=== PATIENT | female | born 1940 | race Caucasian/White ===

== ENCOUNTER 2021-09-15 13:26 | Emergency (ER) | payer MEDICARE, BC, SELFPAY ==
[2021-09-15 13:37] VITALS: BP 127/63; PULSE 111; RESP 18; TEMP 36.6; O2SAT 96; BMI 31.0
== END 2021-09-15 16:53 | disposition left against medical advice (07) ==
PROVIDERS: Emergency Provider Emergency Medicine; PCP Internal Medicine
DX: H57.11 Ocular pain, right eye (principal)
CPT/HCPCS: 99281; 99282

== ENCOUNTER 2021-09-16 10:25 | Emergency (ER) | payer MEDICARE, BC, SELFPAY ==
[2021-09-16 10:33] VITALS: BP 141/82; PULSE 105; RESP 18; TEMP 36.6; O2SAT 94; BMI 32.2
--- NOTE | 2021-09-16 10:43 | PC.NURSE ---
Pt received: Pt Aox4 and c/o R eye pain with bloody drainage since last night. Pt states she is on coumadin. R eye noted to be red with tenderness.
--- NOTE | 2021-09-16 10:49 | ED.EYEPROB ---
HPI - Eye Problem General Chief complaint: Eye Problems Stated complaint: R eye pain Time Seen by Provider: 09/16/21 10:42 Source: patient Mode of arrival: ambulatory Limitations: no limitations History of Present Illness chief complaint: eye pain, eye redness and other (bloody tears) Onset (ago): day(s) (1) Onset description: sudden Duration: constant Location: right eye Eye Symptoms: redness and pain Place: home Mechanism: none Severity: mild If Pain, Quality: aching Context: other (states happened when she was using her IPad no trauma) Associated symptoms: other (had some bloody tears) Treatments Prior to Arrival: other (seen at ) Related Data Home Medications Medication Instructions Recorded Confirmed amiodarone 200 mg tablet 200 mg PO BID 09/16/21 bupropion HCl 150 mg tablet,12 hr 150 mg PO DAILY 09/16/21 sustained-release calcitriol 0.25 mcg capsule 0 mcg PO 09/16/21 fluticasone propionate 50 1 spray INTRANASAL DAILY 09/16/21 mcg/actuation nasal spray,suspension isosorbide mononitrate 30 mg 30 mg PO DAILY 09/16/21 tablet,extended release 24 hr isosorbide mononitrate 60 mg 60 mg PO DAILY 09/16/21 tablet,extended release 24 hr metoprolol succinate 100 mg 100 mg PO BID 09/16/21 tablet,extended release 24 hr metoprolol succinate 50 mg 50 mg PO BID 09/16/21 tablet,extended release 24 hr metoprolol tartrate 50 mg tablet 150 mg PO BID 09/16/21 nitroglycerin 0.4 mg sublingual 0 mg SUBLINGUAL 09/16/21 tablet oxybutynin chloride 15 mg 15 mg PO DAILY 09/16/21 tablet,extended release 24 hr pravastatin 80 mg tablet 80 mg PO DAILY 09/16/21 torsemide 20 mg tablet 20 mg PO DAILY 09/16/21 warfarin 5 mg tablet 5 mg PO DAILY 09/16/21 Allergies Allergy/AdvReac Type Severity Reaction Status Date / Time Iodinated Contrast Media AdvReac Hives Verified 09/16/21 10:33 itraconazole [From Sporanox] AdvReac hives Verified 09/16/21 10:33 metronidazole [From Flagyl] AdvReac Hives Verified 09/16/21 10:33 sulfamethoxazole AdvReac Hives Verified 09/16/21 10:33 [From ] trimethoprim [From ] AdvReac Hives Verified 09/16/21 10:33 Review of Systems Review of Systems: Constitutional : No Fever, No Chills, No Fatigue, No Malaise ENT/Mouth : No sore throat, No Rhinorrhea Eyes: pos Eye Pain, No Swelling, pos Redness Cardiovascular : No Chest Pain, No SOB, No Dyspnea on Exertion, No Orthopnea, No Edema, No Palpitations Respiratory : No Cough, No Sputum, No Wheezing Gastrointestinal : No Nausea, No Vomiting, No Diarrhea Genitourinary : No Dysuria, No Urinary Frequency, No Hematuria, Musculoskeletal : No joint pain, No Myalgias, No Joint Swelling Skin : No Skin Lesions, No rash Neuro : No Weakness, No Numbness, No Dizziness, No Headache All other systems reviewed and are negative [facility] Past Medical History Medical History (Updated 09/16/21 @ 11:17 by Lizeth Morales DO) Afib Depression Hiatal hernia High cholesterol HTN (hypertension) Social History Social History Advance Directives: No Advance Directives Information Provided: Yes Physical Exam Vital Signs: Vital Signs: Last Vital Signs Temp 97.8 F 09/16/21 10:33 Pulse 105 H 09/16/21 10:33 Resp 18 09/16/21 10:33 BP 141/82 H 09/16/21 10:33 Pulse Ox 94 09/16/21 10:33 BMI result Body Mass Index 32.2 Appearance: Alert. Oriented X3. No acute distress. Eyes: Pupils equal, round and reactive to light. R eye sclera + subconj hemorrhage mostly layering inferiorly, no hyphema, full EOMi no pain, normal periorbital area - lacrimal duct appears patent and normal no blood in nares ENT: Pharynx normal. Neck: Normal inspection. Neck supple. CVS: Normal heart rate and rhythm. Pulses normal. Respiratory: No respiratory distress. Breath sounds normal. Abdomen: Soft and nontender. Skin: Skin warm and dry. Normal skin color. Normal skin turgor. Extremities: No lower extremity edema. No calf ttp Neuro: Oriented X 3. No motor deficit. No sensory deficit. Course Course Course Narrative: 20/20 vision both eyes IOP 12, 12, 11 labs stable can be DC at this time MDM - Eye Problem MDM Narrative Medical decision making narrative: 81 yo female no vision changes no headache here with R subconj hemorrhage on coumadin for afib - I see no other bleeding near the lacrimal duct or in nose at this time will obtain visual acuity, IOP, tell her to hold her ASA, she has no vision changes and no headache to suggest ICH or other bleeding - anticipate DC home with expectant management. Lab Data Result diagrams: 09/16/21 11:26 Labs: Lab Results 09/16/21 09/16/21 Range/Units 11:26 11:26 WBC 4.0 L (4.8-10.8) X10*3/uL RBC 3.88 L (4.20-5.50) X10*6/uL Hgb 10.9 L (12.0-16.0) g/dl Hct 36.3 L (37.0-47.0) % MCV 93.6 (80.0-98.0) fL MCH 28.1 (27.0-33.0) pg MCHC 30.0 L (31.0-35.0) g/dl RDW 17.9 H (11.0-16.0) % Plt Count 122 L (160-400) X10*3/uL MPV 11.8 (9.4-12.3) fL Absolute Nucleated RBC 0.000 (0.0-0.012) X10*3/uL Nucleated RBC % (auto) 0.0 (0.0-0.2) /100WBC PT 24.3 H (9.9-13.0) SEC INR 2.1 H (0.9-1.1) Discharge Plan Discharge Clinical Impression: Subconjunctival hemorrhage Qualifiers: Laterality: right Qualified Code(s): H11.31 - Conjunctival hemorrhage, right eye Patient Disposition: Home, Self-Care Instructions: Subconjunctival Hemorrhage (ED) Additional Instructions: return to ED for any worsening symptoms or concerns INR 2.1 eye will heal - this blood will absorb hold aspirin for 3 days Prescriptions: No Action torsemide 20 mg tablet 20 mg PO DAILY RF: 0 amiodarone 200 mg tablet 200 mg PO BID RF: 0 fluticasone propionate 50 mcg/actuation spray,suspension 1 spray intranasal DAILY RF: 0 bupropion HCl 150 mg tablet sustained-release 12 hr 150 mg PO DAILY RF: 0 oxybutynin chloride 15 mg tablet extended release 24hr 15 mg PO DAILY RF: 0 metoprolol tartrate 50 mg tablet 150 mg PO BID RF: 0 calcitriol 0.25 mcg capsule 0 mcg PO RF: 0 isosorbide mononitrate 60 mg tablet extended release 24 hr 60 mg PO DAILY RF: 0 metoprolol succinate 100 mg tablet extended release 24 hr 100 mg PO BID RF: 0 isosorbide mononitrate 30 mg tablet extended release 24 hr 30 mg PO DAILY RF: 0 warfarin 5 mg tablet 5 mg PO DAILY RF: 0 nitroglycerin 0.4 mg tablet, sublingual 0 mg sublingual RF: 0 metoprolol succinate 50 mg tablet extended release 24 hr 50 mg PO BID RF: 0 pravastatin 80 mg tablet 80 mg PO DAILY RF: 0 Referrals: Darell Cassidy [Physician] - 3 days
[2021-09-16] MEDS: Tetracaine HCl/PF 0.5% Oph Sol 4 ML DROPS 1 DROP EYE-RIGHT (10:55)
[2021-09-16 11:32] LABS: Hematocrit 36.3 % (37.0-47.0); Hemoglobin 10.9 g/dl (12.0-16.0); Mean Corpuscular Hemoglobin 28.1 pg (27.0-33.0); Mean Corpuscular Volume 93.6 fL (80.0-98.0); Mean Platelet Volume 11.8 fL (9.4-12.3); Platelet Count 122 X10*3/uL (160-400); Red Blood Count 3.88 X10*6/uL (4.20-5.50); Red Cell Distribution Width 17.9 % (11.0-16.0)
[2021-09-16 11:36] LABS: INTERNATIONAL NORM RATIO 2.1 (0.9-1.1); Prothrombin Time 24.3 SEC (9.9-13.0)
== END 2021-09-16 12:01 | disposition home or self-care (01) ==
PROVIDERS: Emergency Provider Emergency Medicine; PCP Internal Medicine
DX: H11.31 Conjunctival hemorrhage, right eye (principal); H57.11 Ocular pain, right eye; I48.91 Unspecified atrial fibrillation; I10 Essential (primary) hypertension; E78.5 Hyperlipidemia, unspecified; Z79.01 Long term (current) use of anticoagulants; Z79.02 Long term (current) use of antithrombotics/antiplatelets; Z79.899 Other long term (current) drug therapy
CPT/HCPCS: 36415; 85027; 85610; 99283

== ENCOUNTER → 2022-07-24 14:03 | Outpatient (BNVA) | payer MEDICARE, BC, SELFPAY | PROVIDERS: PCP Internal Medicine; Visit Provider Anesthesiology | DX: M47.816 Spondylosis without myelopathy or radiculopathy, lumbar region (principal); S32.030A Wedge compression fracture of third lumbar vertebra, initial encounter for closed fracture; M81.0 Age-related osteoporosis without current pathological fracture; N28.89 Other specified disorders of kidney and ureter | CPT/HCPCS: 99202 ==

== ENCOUNTER 2023-05-08 11:55 | Inpatient (IN) | payer MEDICARE, BC, SELFPAY ==
[2023-05-08] VITALS (7 sets, daily range): BP systolic 141–190; BP diastolic 83–93; PULSE 67–87; RESP 16–18; TEMP 36.6–37.8; O2SAT 87–94; BMI 25.4
--- NOTE | ~2023-05-08 | XR_ITS ---
EXAMINATION: XR RIBS, RIGHT, PA CHEST CLINICAL INFORMATION: Rib pain. COMPARISON: None available. TECHNIQUE: 3 views of the right ribs were obtained along with a PA view of the chest. A skin marker was placed over the right mid ribs. FINDINGS: Lungs are clear. No consolidation, pneumothorax, or pleural effusion. The cardiomediastinal silhouette and pulmonary vasculature are normal. Osseous structures are unremarkable. Ribs are intact. Deformity is seen in the posterolateral right sixth, eighth and ninth ribs. No fractures are identified. XR/XR ribs RT min 3V w CXR1V IMPRESSION: 1. No acute cardiopulmonary process. 2. Deformity in the posterolateral right sixth, eighth and ninth ribs is of indeterminate age. Overall appearance is not acute, but given this correlates with the patient's region of pain, acute fractures cannot be excluded.
--- NOTE | ~2023-05-08 | CT_ITS ---
EXAMINATION: CT CHEST, ABDOMEN AND PELVIS WITHOUT CONTRAST. CLINICAL INFORMATION: Right-sided rib pain, right-sided abdominal pain. Fall. COMPARISON: No pertinent prior studies are available for comparison. TECHNIQUE: Multidetector volumetric imaging was performed from the thoracic inlet through the pubic symphysis without IV contrast. Sagittal and coronal reformatted images were obtained on the technologist's workstation. This CT examination was performed using dose optimization techniques as appropriate, variously including the following: *Automated exposure control *Adjustment of mA and/or kV according to patient size (this includes techniques or standardized protocols for targeted exams where dose is matched to indication/reason for exam; i.e. extremities or head) *Use of iterative reconstruction technique DLP: 642 mGy-cm FINDINGS: Limited noncontrast examination. CHEST: Lung: Multifocal solid and groundglass nodular-like opacities, for example (series 7): A 1.3 x 0.7 cm mixed solid and groundglass opacity in the right apex (image 114). A 1.4 x 0.7 cm irregular predominantly solid opacity in the right upper lobe (image 161). A solid 0.7 cm nodule in the inferior right upper lobe (image 251). A 1.1 x 0.7 cm irregular predominantly solid opacity in the left apex (image 106). An irregular predominantly solid 1.1 x 0.6 cm opacity in the left upper lobe (image 268). Background of bronchial wall thickening, smooth interlobular septal thickening and scattered intrabronchial mucous secretions. Bibasilar subsegmental atelectases. Central airways are patent. Mediastinum: Cardiomegaly. Extensive coronary artery calcifications. No pathologically enlarged mediastinal lymph nodes. Evaluation of the hilar structures is limited in the absence of IV contrast. Heterogeneous enlarged right lobe of the thyroid with a dominant 2 cm nodule. Ascending thoracic aorta measures 4.5 cm in diameter. Large hiatal hernia. Pericardium/Pleura: No pleural effusion or pneumothorax. Trace amount of pericardial fluid. Chest Wall/Axilla: No pathologically enlarged lymph nodes. Osseous structures: Mildly displaced right-sided posterolateral sixth through eighth rib fractures. ABDOMEN/PELVIS: Peritoneal Space: No free air or free fluid. Liver, Gallbladder, Biliary Tree: Noncontrast liver is normal in size, shape and attenuation. There is a 1.7 cm simple fluid attenuating cyst in the lateral left hepatic lobe (12:301). Hydropic gallbladder with a single layering stone measuring 1 cm. No significant pericholecystic fat stranding/free fluid. No biliary ductal dilatation. Pancreas: Limited noncontrast examination. No significant peripancreatic fat stranding or free fluid. No main duct dilatation. Spleen: Normal size. Adrenal Glands: No adrenal mass. Kidneys and Ureters: Mild right pelviectasis within an extrarenal pelvis proximal to a segment of nonspecific high attenuation of the proximal ureter of approximately 2 segments in length (coronal image 35 series 15). Bilateral homogeneous, well-defined simple fluid attenuating cortical cysts, largest from the lower right kidney measuring 4.2 cm, for which no imaging follow-up is recommended. Bladder: Unremarkable. Gastrointestinal Tract: Large hiatal hernia with intrathoracic stomach and organoaxial volvulus. The small bowel is nondilated. Appendix is not definitely visualized, however there are no indirect inflammatory changes to suspect acute appendicitis. Colonic diverticulosis without significant pericolonic fat stranding/free fluid. Large amount of stool throughout the colon. Abdominal Wall: Fat-containing umbilical hernia. Small left greater than right fat-containing inguinal hernias. Anterior abdominal muscle rectus diastases. Lymphovascular Structures: No pathologically enlarged lymph nodes. Extensive atherosclerotic disease. Normal caliber of the abdominal aorta. Pelvic Viscera: Hysterectomy. No free fluid. Osseous Structures: Age indeterminate severe compression deformity at L3 and L5 with associated vertebroplasty cement. Mild age indeterminate compression deformity at L2 with associated vertebroplasty cement. Moderate to severe degenerative changes of the spine. CT/CT abdomen pelvis wo IV con IMPRESSION: Limited noncontrast examination. 1. Mildly displaced right-sided posterolateral sixth through eighth rib fractures. 2. Age indeterminate compression deformities at L2, L3 and L5 with associated vertebroplasty cement. 3. Multifocal nodular-like opacities in both lungs, nonspecific these could be infectious/inflammatory in nature, although malignancy cannot be excluded. Recommend a short-term follow-up chest CT in 3 months for reevaluation. 4. Background of bronchial wall thickening, smooth interlobular septal thickening and scattered intrabronchial mucous secretions, suggesting small airways disease as well as mild pulmonary edema. 5. Large hiatal hernia with intrathoracic stomach and organoaxial volvulus. 6. Equivocal 2 cm segment of high attenuation in proximal right ureter with mild upstream pelviectasis, recommend further evaluation with outpatient CT or MRI urogram to rule out urothelial lesion/stricture. 7. Cholelithiasis but no evidence of acute cholecystitis. 8. Severe colonic diverticulosis without significant pericolonic fat stranding/free fluid to suspected acute diverticulitis. Large amount of stool throughout the colon suggesting constipation. 9. Heterogeneous enlarged right lobe of the thyroid with a dominant 2 cm nodule. Recommend further evaluation with outpatient thyroid ultrasound. 10. Aneurysmatic dilatation of the ascending thoracic aorta measuring 4.5 cm in diameter. Recommend vascular special consultation for further management.
--- NOTE | ~2023-05-08 | CT_ITS ---
EXAMINATION: CT HEAD WITHOUT CONTRAST CT CERVICAL SPINE WITHOUT CONTRAST CLINICAL INFORMATION: Trauma. COMPARISON: None available. TECHNIQUE: Contiguous axial imaging was performed through the head and cervical spine without intravenous administration of contrast. Sagittal and coronal reformatted images also obtained. This CT examination was performed using dose optimization techniques as appropriate, variously including the following: *Automated exposure control *Adjustment of mA and/or kV according to patient size (this includes techniques or standardized protocols for targeted exams where dose is matched to indication/reason for exam; i.e. extremities or head) *Use of iterative reconstruction technique DLP: 822 mGy-cm FINDINGS: HEAD: The lateral, third and fourth ventricles are normally outlined. The cortical sulci and basal cisterns are normally outlined as well. There is mild bilateral periventricular and central white matter image attenuation. There is no acute territorial defect, hemorrhage or midline shift. The extra-axial spaces are unremarkable. Calvarium: Intact. Maxillofacial sinuses and mastoids: Clear as visualized. CERVICAL SPINE: The alignment is normal. There is moderate C5-C6 disc degenerative change and minimal disc degenerative changes throughout the remaining cervical spine with loss of disc space, endplate change and minimal osteophyte formation associated with mild diffuse facet osteoarthritic hypertrophic change with minimal spinal canal and multilevel mild neural foraminal narrowing. There is no fracture. The soft tissues are unremarkable. CT/CT head/brain wo IV con IMPRESSION: No acute intracranial abnormality. Cervical disc degenerative change. No cervical spine fracture.
--- NOTE | ~2023-05-08 | XR_ITS ---
EXAMINATION: XR HAND, LEFT CLINICAL INFORMATION: First digit pain. COMPARISON: None available. TECHNIQUE: PA, lateral, and oblique views of the left hand. FINDINGS: There is generalized osteopenia. Mild first carpal metacarpal, triscaphe and radiocarpal degenerative joint changes are seen. Chronic appearing deformity in the distal radius is noted. The carpal bones are normally aligned. The soft tissues are unremarkable. XR/XR hand LT 2V IMPRESSION: 1. Generalized osteopenia and mild degenerative joint changes most consistent with osteoarthritis. No overt acute fracture. 2. Chronic appearing deformity in the distal radius does not appear acute and may be secondary to old healed fracture.
--- NOTE | ~2023-05-08 | XR_ITS ---
EXAMINATION: XR CHEST CLINICAL INFORMATION: Fever. COMPARISON: 05/08/2023 TECHNIQUE: Frontal view of the chest was obtained. FINDINGS: The lung volumes are low and the patient is mildly rotated. The cardiac mediastinal silhouette is stable. A large hiatal hernia is again seen. There is no discrete focal consolidation or evidence for significant pleural effusion. The bony structures are osteopenic. There is a posterior right sixth rib fracture. The remaining fractures seen on CT are not currently appreciated. The soft tissues are unremarkable. XR/XR chest 1V IMPRESSION: No current evidence for active cardiopulmonary disease. Large hiatal hernia. Right-sided sixth rib fracture
--- NOTE | ~2023-05-08 | XR_ITS ---
EXAMINATION: XR WRIST, RIGHT XR HAND, RIGHT CLINICAL INFORMATION: Status post fall with hand and wrist pain. COMPARISON: None available. TECHNIQUE: PA, lateral, and oblique views of the right wrist and PA, lateral, and oblique views of the right hand FINDINGS: Mild first carpal metacarpal, triscaphe and radiocarpal degenerative joint changes are seen. The carpal bones are normally aligned. The distal radius and ulna are intact. The soft tissues are unremarkable. XR/XR hand wrist RT IMPRESSION: Mild degenerative joint changes most consistent with osteoarthritis. No acute fracture.
--- NOTE | ~2023-05-08 | CT_ITS ---
EXAMINATION: CT HEAD WITHOUT CONTRAST CT CERVICAL SPINE WITHOUT CONTRAST CLINICAL INFORMATION: Trauma. COMPARISON: None available. TECHNIQUE: Contiguous axial imaging was performed through the head and cervical spine without intravenous administration of contrast. Sagittal and coronal reformatted images also obtained. This CT examination was performed using dose optimization techniques as appropriate, variously including the following: *Automated exposure control *Adjustment of mA and/or kV according to patient size (this includes techniques or standardized protocols for targeted exams where dose is matched to indication/reason for exam; i.e. extremities or head) *Use of iterative reconstruction technique DLP: 822 mGy-cm FINDINGS: HEAD: The lateral, third and fourth ventricles are normally outlined. The cortical sulci and basal cisterns are normally outlined as well. There is mild bilateral periventricular and central white matter image attenuation. There is no acute territorial defect, hemorrhage or midline shift. The extra-axial spaces are unremarkable. Calvarium: Intact. Maxillofacial sinuses and mastoids: Clear as visualized. CERVICAL SPINE: The alignment is normal. There is moderate C5-C6 disc degenerative change and minimal disc degenerative changes throughout the remaining cervical spine with loss of disc space, endplate change and minimal osteophyte formation associated with mild diffuse facet osteoarthritic hypertrophic change with minimal spinal canal and multilevel mild neural foraminal narrowing. There is no fracture. The soft tissues are unremarkable. CT/CT cervical spine wo IV con IMPRESSION: No acute intracranial abnormality. Cervical disc degenerative change. No cervical spine fracture.
--- NOTE | 2023-05-08 12:03 | ED.FALL ---
HPI - Fall General Chief Complaint: Fall Stated Complaint: ? R Hip Fx S/P Fall 05/07/23 Time Seen by Provider: 05/08/23 13:54 Source: patient Mode of arrival: ambulatory Limitations: no limitations History of Present Illness HPI Narrative: This is an 83-year-old female past medical history significant for osteoporosis, AFib anticoagulated on Coumadin, hyperlipidemia, hypertension presenting to the emergency department complaints of right-sided wrist pain, left thumb pain status post fall yesterday while trying to plug in a recliner, patient reports that she fell, landed on her right side, and her herself. She reports the reason she fell is due to loss of balance, no preceding symptoms to fall. When she fell it is unclear if she hit her head or lost consciousness. Patient reports that she has been having difficulty ambulating secondary to pain. Patient denies chest pain, shortness of breath, nausea, vomiting, abdominal pain, headache, vision canges Related Data Home Medications Medication Instructions Recorded Confirmed amiodarone 200 mg tablet 200 mg PO BID 09/16/21 bupropion HCl 150 mg tablet,12 hr 150 mg PO DAILY 09/16/21 07/24/22 sustained-release calcitriol 0.25 mcg capsule 0 mcg PO 09/16/21 07/24/22 fluticasone propionate 50 1 spray intranasal DAILY 09/16/21 07/24/22 mcg/actuation nasal spray,suspension isosorbide mononitrate 30 mg 30 mg PO DAILY 09/16/21 07/24/22 tablet,extended release 24 hr isosorbide mononitrate 60 mg 60 mg PO DAILY 09/16/21 tablet,extended release 24 hr nitroglycerin 0.4 mg sublingual 0 mg sublingual 09/16/21 07/24/22 tablet oxybutynin chloride 15 mg 15 mg PO DAILY 09/16/21 07/24/22 tablet,extended release 24 hr pravastatin 80 mg tablet 80 mg PO DAILY 09/16/21 07/24/22 torsemide 20 mg tablet 20 mg PO DAILY 09/16/21 07/24/22 warfarin 5 mg tablet 5 mg PO DAILY 09/16/21 albuterol sulfate 90 mcg/actuation 0 mcg inhalation 07/24/22 07/24/22 aerosol inhaler aspirin 81 mg tablet,delayed 81 mg PO DAILY 07/24/22 07/24/22 release (Adult Aspirin Regimen) hydroxyzine HCl 25 mg tablet 25 mg PO TID 07/24/22 07/24/22 mecobalamin (vitamin B12) 5,000 mcg PO 07/24/22 07/24/22 mcg disintegrating tablet melatonin 10 mg capsule 10 mg PO BEDTIME PRN 07/24/22 07/24/22 mirtazapine 45 mg tablet 45 mg PO BEDTIME 07/24/22 07/24/22 ropinirole 0.25 mg tablet mg PO 07/24/22 07/24/22 tramadol 50 mg tablet 50 mg PO Q6H PRN 07/24/22 07/24/22 buprenorphine 20 mcg/hour weekly 1 patch topical QWEEK 05/08/23 transdermal patch gabapentin 300 mg capsule 300 mg PO DAILY 05/08/23 metoprolol tartrate 25 mg tablet 25 mg PO DAILY 05/08/23 Allergies Allergy/AdvReac Type Severity Reaction Status Date / Time Iodinated Contrast Media AdvReac Hives Verified 05/08/23 12:01 itraconazole [From Sporanox] AdvReac hives Verified 05/08/23 12:01 metronidazole [From Flagyl] AdvReac Hives Verified 05/08/23 12:01 sulfamethoxazole AdvReac Hives Verified 05/08/23 12:01 [From Septra] trimethoprim [From Septra] AdvReac Hives Verified 05/08/23 12:01 Review of Systems Review of Systems: Constitutional : No Weight loss, No Fever, No Chills, No Fatigue, No Malaise ENT/Mouth : No sore throat, No Rhinorrhea Eyes: No Eye Pain, No Swelling, No Redness Cardiovascular : No Chest Pain, No SOB, No Dyspnea on Exertion, No Orthopnea, No Edema, No Palpitations Respiratory : No Cough, No Sputum, No Wheezing Gastrointestinal : No Nausea, No Vomiting, No Diarrhea, No Constipation, No abdominal Pain, No Hematochezia, No Melena Genitourinary : No Dysuria, No Urinary Frequency, No Hematuria, Musculoskeletal : + joint pain, No Myalgias, + Joint Swelling, + rib pain Skin : No Skin Lesions, No rash Neuro : No Weakness, No Numbness, No Dizziness, No Headache Psych : No Anxiety/Panic, No Depression All other systems reviewed and are negative Yes all other systems are reviewed and are negative PMFSH Past Medical History Attestation statement: The following information was validated with the patient. Source: old records reviewed and nursing notes reviewed Medical History (Updated 05/08/23 @ 16:06 by HERIBERTO Gardner) Afib Depression Hiatal hernia High cholesterol HTN (hypertension) Social History Social History Advance Directives: Yes Advance Directives Information Provided: Yes Advance Directives on File: No Physical Exam Vital Signs: Vital Signs: Last Vital Signs Temp 97.9 F 05/08/23 14:20 Pulse 74 05/08/23 14:20 Resp 18 05/08/23 14:28 BP 141/87 H 05/08/23 14:20 Pulse Ox 93 05/08/23 14:20 O2 Del Method Room Air 05/08/23 14:20 BMI result Body Mass Index 25.4 vss Appearance: Alert.? Oriented X3.? No acute distress.? Head: Normocephalic, atraumatic, no step-offs or deformities Eyes: Pupils equal, round and reactive to light.? ENT: Pharynx normal.? Neck: Normal inspection.? Neck supple.? CVS: Normal heart rate and rhythm.? Pulses normal.?+ right sided rib pain 5-9 no overlying skin changes. Respiratory: No respiratory distress.? Breath sounds normal.? Abdomen: Soft and nontender.? Skin: Skin warm and dry.? Normal skin color.? Normal skin turgor.? Extremities: No lower extremity edema.? No calf ttp. 5/5 strength to bilateral upper and lower extremities + pain with rom of Lt thumb and r. wrist however full ROM. 2+ radial pulses equal and b/l, no wrist drop, cap refil < 2 seconds. Back: No midline tenderness, no C-spine tenderness, full range of motion, no CVA tenderness bilaterally Neuro: Oriented X 3.? No motor deficit.? No sensory deficit. CN 2-12 intact Course Course Course Narrative: RME: 83yo F w/PMHx A.fib on Coumadin, HTN, HLD, c/o R rib, R wrist, and L thumb pain s/p fall yesterday while trying to plug in recliner. States lost balance, unknown head trauma, denies LOC. States has been ambulating last secondary to pain Head/C-spine CT and x-rays ordered Full HPI, ROS and PE to be performed by primary ED provider. -1334--XR showing possible fx of ribs 6 & 7-8 > labs, CT w/con ordered Reevaluation(s) Reevaluation #1: X-ray of hand with generalized osteopenia and mild degenerative joint changes most consistent with osteoarthritis. No for acute fracture. Chronic appearing deformity in the distal radius does not appear acute. No fractures or dislocations in the right hand wrist. Osteoarthritis noted. X-ray of ribs with no acute cardiopulmonary process. Deformity in the posterior lateral right 6th 8th and 9th ribs. It is of indeterminate age. CT scans ordered. Patient has a contrast allergy with hives, will wait and obtain patient's H&H, if stable will do CT without contrast since it has been a day since fall, is unstable will premedicate and then do CT with IV contrast. Time: 14:06 Reevaluation #2: Sighn out to [place] pending scans and reeval. Dispo pending. Time: 16:06 Medications Administered Discontinued Medications Generic Name Dose Route Start Last Admin Trade Name Sharee PRN Reason Stop Dose Admin Lidocaine 1 patch 05/08/23 14:09 05/08/23 14:28 Lidocaine 4 % Patch Adh..Patch TRANSDERMA 05/08/23 14:10 1 patch ONCE ONE Administration Protocol Morphine Sulfate 4 mg 05/08/23 14:09 05/08/23 14:28 Morphine Sulfate 4 Mg/Ml Cartridge IVPUSH 05/08/23 14:10 4 mg ONCE ONE Administration Protocol Medical Decision Making Medical Decision Making [facility] Narrative: 1404 83-year-old female presents status post fall yesterday with complaints of left thumb pain, right wrist pain, rib pain since yesterday Exam with tenderness to palpation to right lateral ribs 5 through 9 without relying skin changes. 5/5 strength to bilateral upper and lower extremities + pain with rom of Lt thumb and r. wrist however full ROM. 2+ radial pulses equal and b/l, no wrist drop, cap refil < 2 seconds. Neuro nonfocal. Cerebellar intact. Will rule out traumatic injury to head, neck, chest, abdomen pelvis secondary to patient being on anti coags. Concerns for rib fractures, possible finger fracture and wrist fracture. Unlikely neurovascular compromise, threat to [place]. No evidence of stroke, posterior stroke or intracranial hemorrhage on my examination however will rule out. Also rule out ACS although based off history and physical exam low suspicion. Unlikely that this is a PE. As patient is anticoagulated. Plan labs, imaging, urine, EKG Differential Diagnosis Differential Diagnoses: The differential diagnosis associated with the presentation includes Will rule out traumatic injury to head, neck, chest, abdomen pelvis secondary to patient being on anti coags. Concerns for rib fractures, possible finger fracture and wrist fracture. Unlikely neurovascular compromise, threat to [place]. No evidence of stroke, posterior stroke or intracranial hemorrhage on my examination however will rule out. Also rule out ACS although based off history and physical exam low suspicion. Unlikely that this is a PE. As patient is anticoagulated. Admission/Observation Consideration of admission/observation: Escalation of care including admission/observation considered Likely Lab Data MDM Lab Attestation statement: I reviewed the patient's lab results. 05/08/23 14:18 05/08/23 14:18 Labs: Lab Results 05/08/23 05/08/23 05/08/23 Range/Units 14:18 14:18 14:18 WBC 4.2 L (4.8-10.8) X10*3/uL RBC 3.92 L (4.20-5.50) X10*6/uL Hgb 11.0 L (12.0-16.0) g/dl Hct 35.0 L (37.0-47.0) % MCV 89.3 (80.0-98.0) fL MCH 28.1 (27.0-33.0) pg MCHC 31.4 (31.0-35.0) g/dl RDW 15.5 (11.0-16.0) % Plt Count 141 L (160-400) X10*3/uL MPV 12.0 (9.4-12.3) fL Immature Gran % (Auto) 1.0 H (0.0-0.4) % Neut % (Auto) 44.0 L (45-73) % Lymph % (Auto) 17.1 L (20-40) % Morton % (Auto) 36.9 H (2-11) % Eos % (Auto) 0.5 (0-4) % Baso % (Auto) 0.5 (0-2) % Lymph # (Auto) 0.7 L (1.2-4.9) X10*3/uL Morton # (Auto) 1.6 H (0.1-1.2) X10*3/uL Eos # (Auto) 0.0 (0.0-0.4) X10*3/uL Baso # (Auto) 0.0 (0.0-0.2) X10*3/uL Abs Immat Gran (auto) 0.04 H (0.00-0.03) X10*3/uL Absolute Neuts (auto) 1.9 L (2.0-8.3) x10*3/uL Absolute Nucleated RBC 0.000 (0.0-0.012) X10*3/uL Nucleated RBC % (auto) 0.0 (0.0-0.2) /100WBC Smear Tech's Comments VERIFIED PT 35.4 H (11.1-13.3) SEC INR 2.9 H (0.9-1.1) Sodium 142 (135-145) mmol/L Potassium 3.8 (3.3-5.1) mmol/L Chloride 103 (96-108) mmol/L Carbon Dioxide 30 H (22-29) mmol/L Anion Gap 13 (12-20) BUN 17 H (9-16) mg/dL Creatinine 1.11 (0.5-1.4) mg/dL Estim Creat Clear Calc 41.5 Estimated GFR 47 Random Glucose 93 (60-115) mg/dL Calcium 10.0 (8.4-10.2) mg/dL Troponin I High Sens (<3.5-17.0) ng/L 05/08/23 Range/Units 14:42 WBC (4.8-10.8) X10*3/uL RBC (4.20-5.50) X10*6/uL Hgb (12.0-16.0) g/dl Hct (37.0-47.0) % MCV (80.0-98.0) fL MCH (27.0-33.0) pg MCHC (31.0-35.0) g/dl RDW (11.0-16.0) % Plt Count (160-400) X10*3/uL MPV (9.4-12.3) fL Immature Gran % (Auto) (0.0-0.4) % Neut % (Auto) (45-73) % Lymph % (Auto) (20-40) % Morton % (Auto) (2-11) % Eos % (Auto) (0-4) % Baso % (Auto) (0-2) % Lymph # (Auto) (1.2-4.9) X10*3/uL Morton # (Auto) (0.1-1.2) X10*3/uL Eos # (Auto) (0.0-0.4) X10*3/uL Baso # (Auto) (0.0-0.2) X10*3/uL Abs Immat Gran (auto) (0.00-0.03) X10*3/uL Absolute Neuts (auto) (2.0-8.3) x10*3/uL Absolute Nucleated RBC (0.0-0.012) X10*3/uL Nucleated RBC % (auto) (0.0-0.2) /100WBC Smear Tech's Comments PT (11.1-13.3) SEC INR (0.9-1.1) Sodium (135-145) mmol/L Potassium (3.3-5.1) mmol/L Chloride (96-108) mmol/L Carbon Dioxide (22-29) mmol/L Anion Gap (12-20) BUN (9-16) mg/dL Creatinine (0.5-1.4) mg/dL Estim Creat Clear Calc Estimated GFR Random Glucose (60-115) mg/dL Calcium (8.4-10.2) mg/dL Troponin I High Sens 9.0 (<3.5-17.0) ng/L Independent Interpretation I performed an independent interpretation of an: Plain X-Ray and CT Scan Radiology Impression Discussion of test interpretation with radiology: I have reviewed the radiologist's reading. Core Measures AMI core measures followed: Yes Measure exclusions: not indicated Critical Care Time Critical Care Time Critical Care Time: No Discharge Plan Discharge Clinical Impression: Fracture, ribs, Fall Patient Disposition: Still a Patient Prescriptions: No Action gabapentin 300 mg capsule 300 mg PO DAILY metoprolol tartrate 25 mg tablet 25 mg PO DAILY buprenorphine 20 mcg/hour patch weekly 1 patch topical QWEEK torsemide 20 mg tablet 20 mg PO DAILY amiodarone 200 mg tablet 200 mg PO BID fluticasone propionate 50 mcg/actuation spray,suspension 1 spray intranasal DAILY bupropion HCl 150 mg tablet sustained-release 12 hr 150 mg PO DAILY oxybutynin chloride 15 mg tablet extended release 24hr 15 mg PO DAILY calcitriol 0.25 mcg capsule 0 mcg PO isosorbide mononitrate 60 mg tablet extended release 24 hr 60 mg PO DAILY isosorbide mononitrate 30 mg tablet extended release 24 hr 30 mg PO DAILY warfarin 5 mg tablet 5 mg PO DAILY nitroglycerin 0.4 mg tablet, sublingual 0 mg sublingual pravastatin 80 mg tablet 80 mg PO DAILY albuterol sulfate 90 mcg/actuation HFA aerosol inhaler 0 mcg inhalation aspirin [Adult Aspirin Regimen] 81 mg tablet,delayed release (DR/EC) 81 mg PO DAILY hydroxyzine HCl 25 mg tablet 25 mg PO TID melatonin 10 mg capsule 10 mg PO BEDTIME PRN mirtazapine 45 mg tablet 45 mg PO BEDTIME ropinirole 0.25 mg tablet PO tramadol 50 mg tablet 50 mg PO Q6H PRN mecobalamin (vitamin B12) 5,000 mcg tablet,disintegrating PO
--- NOTE | 2023-05-08 13:56 | ECG_ITS ---
Test Reason : fall Blood Pressure : / mmHG Vent. Rate : 068 BPM Atrial Rate : 068 BPM P-R Int : 164 ms QRS Dur : 088 ms QT Int : 438 ms P-R-T Axes : 068 009 062 degrees QTc Int : 465 ms Sinus rhythm with Premature atrial complexes Otherwise normal ECG No previous ECGs available Referred By: Delmi Pollard Electronically Signed By:LUCIANO WRIGHT
[2023-05-08] MEDS: Lidocaine 4 % Patch ADH..PATCH 1 PATCH TRANSDERMA (14:28)
[2023-05-08] MEDS: Morphine Sulfate 4 MG/ML CARTRIDGE IVPUSH (14:28)
[2023-05-08 14:30] LABS: INTERNATIONAL NORM RATIO 2.9 (0.9-1.1); Prothrombin Time 35.4 SEC (11.1-13.3)
[2023-05-08 14:31] LABS: Basophils Percent Auto 0.5 % (0-2); Eosinophils Percent Auto 0.5 % (0-4); Imm Gran Abs Auto 0.04 X10*3/uL (0.00-0.03); Lymphocytes Absolute Auto 0.7 X10*3/uL (1.2-4.9); Lymphocytes Percent Auto 17.1 % (20-40); MANUAL DIFF FLAG SCAN; Mean Corpuscular HGB Conc 31.4 g/dl (31.0-35.0); Mean Corpuscular Hemoglobin 28.1 pg (27.0-33.0); Mean Corpuscular Volume 89.3 fL (80.0-98.0); Monocytes Absolute Auto 1.6 X10*3/uL (0.1-1.2); Monocytes Percent Auto 36.9 % (2-11); Neutrophils Absolute Auto 1.9 x10*3/uL (2.0-8.3); Platelet Count 141 X10*3/uL (160-400); Red Blood Count 3.92 X10*6/uL (4.20-5.50); Red Cell Distribution Width 15.5 % (11.0-16.0); SCAN SMEAR FLAG 1; White Blood Count 4.2 X10*3/uL (4.8-10.8)
[2023-05-08 14:39] LABS: Anion Gap 13 (12-20); Blood Urea Nitrogen 17 mg/dL (9-16); Carbon Dioxide 30 mmol/L (22-29); Chloride 103 mmol/L (96-108); Creatinine Clr Calc Pharmacy 41.5; Estimated Glomerular Filt Rate 47; Glucose Random 93 mg/dL (60-115); Potassium 3.8 mmol/L (3.3-5.1); Sodium 142 mmol/L (135-145)
[2023-05-08 15:19] LABS: SLIDE REVIEW VERIFIED
--- NOTE | 2023-05-08 15:24 | PC.NURSE ---
Patient assisted to bathroom via wheelchair. Patient able to stand and pivot with minimal assistance. Patient states that the pain medication helped some. Patient assisted back to bed again able to stand and pivot with minimal assistance. Breathing even, no s/s of distress noted. Patient does guard right side when moving.
[2023-05-08 17:22] LABS: Troponin-I High Sensitivity 12.8 ng/L (<3.5-17.0)
--- NOTE | 2023-05-08 17:48 | MHC.EDTECH ---
THIS PCT JUST ASSUMED CARE OF PT ,VITALS SIGN TAKEN ,RN JONO IS AWARE OF PT LOW 02 SAT OF 87 % ON ROOM AIR ,PT WAS PUT ON 2 L 02 ,PATIENT IS NOW sating at 92 % on 2 l .
--- NOTE | 2023-05-08 19:30 | MHC.EDTECH ---
This tech assumed care of patient at 1900, Vitals were taken and blood pressure is elevated at 190/88,RN Jennifer was made aware. Patient is resting at this time and call porter within reach.
--- NOTE | 2023-05-08 19:45 | MHC.EDTECH ---
Patient had to use the bathroom and was not wanting to go on the commode, this tech got a wheelchair and assisted her to the bathroom, patient has a steady gait, pt did urinate. Patient requested something to eat this tech got her a peanut butter and jelly sandwich with some applesauce and two cups of applesauce.
--- NOTE | 2023-05-08 20:16 | PHA.MEDREC ---
Pharmacy Consult ? Medication Reconciliation Pharmacy has completed the medication reconciliation. Patient's had list of medications. Patient reports she takes a half tablet of warfarin every day. Patient has no idea what a buprenorphine patch it. reports patient has not started any patches. Leslie Pickard, PharmD
--- NOTE | 2023-05-08 20:21 | P.HPHOSP_ITS ---
Patient seen and examined at bedside. I agree with the findings of a PP. Patient admitted for intractable pain secondary to rib fractures For full H&P please see History of Present Illness Date of Service: 05/08/23 Attending physician on admission: Gin Adams Chief Complaint: fall, rib pain 83-year-old female with history of paroxysmal atrial fibrillation anticoagulated with Coumadin, depression, hyperlipidemia, osteoporosis, urge incontinence, and hypertension presented to the ED earlier today for evaluation of injury sustained during an accidental fall. She states she was getting up from her recliner and lost her balance falling to the right side. She does not believe she hit her head or lose consciousness. She denies any prodrome leading up to the fall including lightheadedness, shortness of breath, visual changes, palpitations, or chest pain. She does report difficulty ambulating since the fall. On arrival, patient hypertensive to 171/93, vitals otherwise stable. Did develop hypoxia to 87% placed on 2 L supplemental O2 maintaining 92% oximetry. Hematology studies consistent with baseline. INR 2.9, renal function normal, electrolyte levels normal. Head CT negative for any acute intracranial abnormality. CT of the cervical spine shows degenerative changes, but no acute fracture, dislocation, or subluxation. CT chest shows mildly displaced right- sided posterolateral 6th through 8th right rib fractures as well as age- indeterminate compression deformities at L2, L3, L5 with associated vertebroplasty cement. There are multifocal nodular like opacities bilateral lungs which are nonspecific, follow-up CT in 3 months recommended. There is mild bronchial wall thickening. Incidentally noted 4.5 cm dilatation of the ascending thoracic aorta. X-ray of the right hand/wrist shows mild degenerative joint changes consistent with osteoarthritis. X-ray of the left hand shows generalized osteopenia and arthritic changes but no overt acute fracture. There is also chronic appearing deformity of the distal radius possibly secondary to old healed fracture. In the ED, received lidocaine patch and IV morphine. Given she is still complaining of 9/10 pain with ongoing hypoxia, will observe for pain management with a possible placement to short-term rehab. Review of Systems Review of Systems: General: No fevers, malaise, unintentional weight loss HEENT: No blurred vision, diplopia. Cardiovascular: No chest pain, palpitations, or leg edema Respiratory: No wheezing, cough. +sob GI: No abdominal pain, nausea, vomiting, diarrhea, constipation, melena, hematochezia MSK: No myalgia, back pain. +rib pain Neuro: No headaches, weakness, paresthesias Skin: No rashes or lesions [facility] Medical History Afib Depression Hiatal hernia High cholesterol HTN (hypertension) Social History Advance Directives: Yes Advance Directives Information Provided: Yes Advance Directives on File: No Meds Allergies Allergy/AdvReac Type Severity Reaction Status Date / Time Iodinated Contrast Media AdvReac Hives Verified 05/08/23 12:01 itraconazole [From Sporanox] AdvReac hives Verified 05/08/23 12:01 metronidazole [From Flagyl] AdvReac Hives Verified 05/08/23 12:01 sulfamethoxazole AdvReac Hives Verified 05/08/23 12:01 [From Septra] trimethoprim [From Septra] AdvReac Hives Verified 05/08/23 12:01 Active Medications: Current Medications Acetaminophen (Acetaminophen 325 Mg Tablet) 650 mg PO Q6H PRN PRN Reason: Pain, Mild (Pain Scale 1-3) Docusate Sodium (Docusate Sodium 100 Mg Capsule) 100 mg PO DAILY PRN PRN Reason: Constipation Morphine Sulfate (Morphine Sulfate 2 Mg/Ml Cartridge) 2 mg IVPUSH Q4H PRN; Protocol PRN Reason: Pain, Severe (Pain Scale 7-10) Ondansetron HCl (Ondansetron Hcl 4 Mg/2 Ml Vial) 4 mg IVPUSH Q8H PRN PRN Reason: Nausea and Vomiting Oxycodone HCl (Oxycodone Hcl Immed Release 5 Mg Tablet) 5 mg PO Q4H PRN PRN Reason: Pain, Moderate(Pain Scale 4-6) Sodium Chloride (0.9 % Sodium Chloride Flush 3 Ml Syringe) 3 ml IVFSH [facility] Home Medications Medication Instructions Recorded Confirmed Last Taken Type bupropion HCl 150 mg tablet,12 hr 150 mg PO DAILY 09/16/21 05/08/23 05/08/23 History sustained-release calcitriol 0.25 mcg capsule 0.25 mcg PO Q48H 09/16/21 05/08/23 05/08/23 History fluticasone propionate 50 2 spray intranasal DAILY 09/16/21 05/08/23 05/08/23 History mcg/actuation nasal spray,suspension isosorbide mononitrate 60 mg 60 mg PO DAILY 09/16/21 05/08/23 05/08/23 History tablet,extended release 24 hr nitroglycerin 0.4 mg sublingual 0.4 mg sublingual Q5M PRN Chest 09/16/21 05/08/23 05/08/23 History tablet Pain oxybutynin chloride 15 mg 15 mg PO DAILY 09/16/21 05/08/23 05/08/23 History tablet,extended release 24 hr pravastatin 80 mg tablet 80 mg PO DAILY 09/16/21 05/08/23 05/08/23 History torsemide 20 mg tablet 20 mg PO Q48H 09/16/21 05/08/23 05/08/23 History warfarin 5 mg tablet 2.5 mg PO DAILY 09/16/21 05/08/23 Unknown History albuterol sulfate 90 mcg/actuation 2 puff inhalation Q4-6H PRN 07/24/22 05/08/23 Unknown History aerosol inhaler Wheezing aspirin 81 mg tablet,delayed 81 mg PO DAILY 07/24/22 05/08/23 05/08/23 History release (Adult Aspirin Regimen) melatonin 10 mg capsule 10 mg PO BEDTIME PRN Insomnia 07/24/22 05/08/23 Unknown History mirtazapine 45 mg tablet 45 mg PO BEDTIME 07/24/22 05/08/23 05/07/23 History ropinirole 0.25 mg tablet 0.25 mg PO BEDTIME 07/24/22 05/08/23 05/07/23 History cetirizine 10 mg tablet 10 mg PO DAILY 05/08/23 05/08/23 05/08/23 History cyanocobalamin (vitamin B-12) 1,000 mcg PO DAILY 05/08/23 05/08/23 05/08/23 History 1,000 mcg tablet gabapentin 300 mg capsule 300 mg PO BEDTIME 05/08/23 05/08/23 05/07/23 History glucosamine-chondroitin 1 tab PO BID 05/08/23 05/08/23 05/08/23 History metoprolol tartrate 25 mg tablet 12.5 mg PO BID 0805/08/23 05/08/23 History Physical Exam Vital Signs and Narrative: Vital Signs: Last Vital Signs Temp 99.4 F 05/08/23 19:28 Pulse 87 05/08/23 19:28 Resp 18 05/08/23 19:28 BP 190/88 H 05/08/23 19:28 Pulse Ox 92 05/08/23 19:28 O2 Del Method Nasal Cannula 05/08/23 19:28 O2 Flow Rate 2 05/08/23 19:28 BMI result Body Mass Index 25.4 Constitutional - Awake and Alert, No apparent distress Eyes - PERRLA, EOMI Cardiovascular - S1S2, RRR, No edema Respiratory - Normal lung expansion, Normal respiratory effort, No respiratory distress, scattered crackles bilaterally Gastrointestinal - NT / ND; +BS; No rebound or guarding - No CVA tenderness Extremities - no calf tenderness bilaterally, no swelling Musculoskeletal - Normal inspection, normal ROM Skin - Warm/Dry. Ecchymosis right side back Neurological - Alert & oriented x3, CN II-XII in tact, 5/5 strength BUE and BLE Results Labs 05/08/23 14:18 05/08/23 14:18 Labs: Laboratory Results - last 24 hr 05/08/23 05/08/23 05/08/23 14:18 14:18 14:18 MCV 89.3 MCH 28.1 MCHC 31.4 RDW 15.5 Plt Count 141 L MPV 12.0 Immature Gran % (Auto) 1.0 H Neut % (Auto) 44.0 L Lymph % (Auto) 17.1 L [place] % (Auto) 36.9 H Eos % (Auto) 0.5 Baso % (Auto) 0.5 Lymph # (Auto) 0.7 L [place] # (Auto) 1.6 H Eos # (Auto) 0.0 Baso # (Auto) 0.0 Abs Immat Gran (auto) 0.04 H Absolute Neuts (auto) 1.9 L Absolute Nucleated RBC 0.000 Nucleated RBC % (auto) 0.0 Smear Tech's Comments VERIFIED PT 35.4 H INR 2.9 H Anion Gap 13 Estim Creat Clear Calc 41.5 Estimated GFR 47 Random Glucose 93 Calcium 10.0 Imaging Radiologist's Impressions: Impressions Hand X-Ray 05/08/23 12:30 IMPRESSION: 1. Generalized osteopenia and mild degenerative joint changes most consistent with osteoarthritis. No overt acute fracture. 2. Chronic appearing deformity in the distal radius does not appear acute and may be secondary to old healed fracture. Hand/Wrist X-Ray 05/08/23 12:30 IMPRESSION: Mild degenerative joint changes most consistent with osteoarthritis. No acute fracture. Ribs X-Ray 05/08/23 12:30 IMPRESSION: 1. No acute cardiopulmonary process. 2. Deformity in the posterolateral right sixth, eighth and ninth ribs is of indeterminate age. Overall appearance is not acute, but given this correlates with the patient's region of pain, acute fractures cannot be excluded. Cervical Spine CT 05/08/23 13:39 IMPRESSION: No acute intracranial abnormality. Cervical disc degenerative change. No cervical spine fracture. Head CT 05/08/23 13:39 IMPRESSION: No acute intracranial abnormality. Cervical disc degenerative change. No cervical spine fracture. Abdomen/Pelvis CT 05/08/23 15:47 IMPRESSION: Limited noncontrast examination. 1. Mildly displaced right-sided posterolateral sixth through eighth rib fractures. 2. Age indeterminate compression deformities at L2, L3 and L5 with associated vertebroplasty cement. 3. Multifocal nodular-like opacities in both lungs, nonspecific these could be infectious/inflammatory in nature, although malignancy cannot be excluded. Recommend a short-term follow-up chest CT in 3 months for reevaluation. 4. Background of bronchial wall thickening, smooth interlobular septal thickening and scattered intrabronchial mucous secretions, suggesting small airways disease as well as mild pulmonary edema. 5. Large hiatal hernia with intrathoracic stomach and organoaxial volvulus. 6. Equivocal 2 cm segment of high attenuation in proximal right ureter with mild upstream pelviectasis, recommend further evaluation with outpatient CT or MRI urogram to rule out urothelial lesion/stricture. 7. Cholelithiasis but no evidence of acute cholecystitis. 8. Severe colonic diverticulosis without significant pericolonic fat stranding/free fluid to suspected acute diverticulitis. Large amount of stool throughout the colon suggesting constipation. 9. Heterogeneous enlarged right lobe of the thyroid with a dominant 2 cm nodule. Recommend further evaluation with outpatient thyroid ultrasound. 10. Aneurysmatic dilatation of the ascending thoracic aorta measuring 4.5 cm in diameter. Recommend vascular special consultation for further management. Chest CT 05/08/23 15:48 IMPRESSION: Limited noncontrast examination. 1. Mildly displaced right-sided posterolateral sixth through eighth rib fractures. 2. Age indeterminate compression deformities at L2, L3 and L5 with associated vertebroplasty cement. 3. Multifocal nodular-like opacities in both lungs, nonspecific these could be infectious/inflammatory in nature, although malignancy cannot be excluded. Recommend a short-term follow-up chest CT in 3 months for reevaluation. 4. Background of bronchial wall thickening, smooth interlobular septal thickening and scattered intrabronchial mucous secretions, suggesting small airways disease as well as mild pulmonary edema. 5. Large hiatal hernia with intrathoracic stomach and organoaxial volvulus. 6. Equivocal 2 cm segment of high attenuation in proximal right ureter with mild upstream pelviectasis, recommend further evaluation with outpatient CT or MRI urogram to rule out urothelial lesion/stricture. 7. Cholelithiasis but no evidence of acute cholecystitis. 8. Severe colonic diverticulosis without significant pericolonic fat stranding/free fluid to suspected acute diverticulitis. Large amount of stool throughout the colon suggesting constipation. 9. Heterogeneous enlarged right lobe of the thyroid with a dominant 2 cm nodule. Recommend further evaluation with outpatient thyroid ultrasound. 10. Aneurysmatic dilatation of the ascending thoracic aorta measuring 4.5 cm in diameter. Recommend vascular special consultation for further management. Assessment and Plan (1) Fracture, ribs: Status: Acute (2) Fall: Status: Acute Plan 83-year-old female with history of paroxysmal atrial fibrillation anticoagulated with Coumadin, depression, hyperlipidemia, osteoporosis, urge incontinence, and hypertension to be observed for intractable rib pain with hypoxia. #Acute hypoxic respiratory failure -due to decreased respiratory excursion 2/2 to pain from rib fractures -Continue supplemental O2 to maintain oximetry >92% -Encourage incentive spirometry #Acute right sided rib fractures -Pain management using pain scale -Mildly displaced, ortho consult -Incentive spirometry #Accidental mechanical fall -pt eval #HTN- uncontrolled 2/2 to pain -pain management -continue home meds #HLD -continue statin # paroxysmal atrial fibrillation -anticoagulation with Coumadin, monitor INR daily. INR currently therapeutic at 2.9 -continue metoprolol for rate control # urge incontinence -continue oxybutynin Icidentalomas #4.5cm ascending aortic dilatation-outpatient cardiovascular follow-up # 2 cm heterogenous thyroid nodule-outpatient follow-up for thyroid ultrasound # right-sided ureteral lesion with mild upstream pelviectasis-outpatient follow- up for CT or MRI urogram to rule out early the lesion/stricture DVT prophylaxis-on Coumadin Full code Time Spent With Patient Time: Total time managing care of this patient today ____ minutes. Quality Stroke Does the patient have a stroke diagnosis?: No VTE Prior VTE?: No VTE Risk Level:: Medical - moderate - high VTE Device Contraindication: Treatment Not Indicated VTE Drug Contraindication: N/A - Med Ordered
[2023-05-08] MEDS: Morphine Sulfate 2 MG/ML CARTRIDGE IVPUSH (20:27)
--- NOTE | 2023-05-08 21:14 | MHC.EDTECH ---
Hourly rounds completed and vitals were taken,temp is elevated at 100.0 orally and BP is 181/90 RN Jennifer made aware . Belongings list completed earlier took home tablet and clothes.
[2023-05-08] MEDS: Acetaminophen 325 MG TABLET 650 MG PO (21:20)
[2023-05-08] MEDS: oxyBUTYnin chloride ER 5 MG TAB.ER.24 15 MG PO (21:20)
[2023-05-08] MEDS: Metoprolol Tartrate 12.5 MG HALFTAB PO (21:21)
[2023-05-08] MEDS: Gabapentin 300 MG CAPSULE PO (21:21)
[2023-05-08] MEDS: Mirtazapine 15 MG TABLET 45 MG PO (21:22)
[2023-05-08] MEDS: oxyCODONE HCl Immed Release 5 MG TABLET PO (21:22)
[2023-05-09] VITALS: BP 168/78; PULSE 82; RESP 16; TEMP 37.1; O2SAT 93
[2023-05-09] MEDS: 0.9 % Sodium Chloride Flush 3 ML SYRINGE IVFLUSH ×2 (00:25→21:43)
[2023-05-09 05:45] LABS: Basophils Percent Auto 0.4 % (0-2); Eosinophils Percent Auto 0.8 % (0-4); Hematocrit 36.4 % (37.0-47.0); Hemoglobin 11.3 g/dl (12.0-16.0); Imm Gran Abs Auto 0.05 X10*3/uL (0.00-0.03); Lymphocytes Absolute Auto 0.7 X10*3/uL (1.2-4.9); Lymphocytes Percent Auto 14.2 % (20-40); Mean Corpuscular Hemoglobin 27.6 pg (27.0-33.0); Mean Platelet Volume 11.4 fL (9.4-12.3); Monocytes Absolute Auto 2.3 X10*3/uL (0.1-1.2); Monocytes Percent Auto 44.3 % (2-11); Neutrophils Absolute Auto 2.1 x10*3/uL (2.0-8.3); Neutrophils Percent Auto 39.3 % (45-73); PLT CLUMP 1; Red Blood Count 4.09 X10*6/uL (4.20-5.50); Red Cell Distribution Width 15.4 % (11.0-16.0); SCAN SMEAR FLAG 1
[2023-05-09 05:46] LABS: INTERNATIONAL NORM RATIO 2.4 (0.9-1.1); Prothrombin Time 29.8 SEC (11.1-13.3)
[2023-05-09 06:02] LABS: Anion Gap 15 (12-20); Blood Urea Nitrogen 14 mg/dL (9-16); Calcium 9.5 mg/dL (8.4-10.2); Carbon Dioxide 26 mmol/L (22-29); Chloride 103 mmol/L (96-108); Estimated Glomerular Filt Rate 54; Glucose Random 101 mg/dL (60-115); Potassium 4.1 mmol/L (3.3-5.1); Sodium 140 mmol/L (135-145)
[2023-05-09 06:20] LABS: Platelet Count 99 X10*3/uL (160-400); White Blood Count 5.2 X10*3/uL (4.8-10.8)
[2023-05-09 06:21] LABS: MANUAL DIFF FLAG SCAN
[2023-05-09 06:30] LABS: SLIDE REVIEW VERIFIED
[2023-05-09 07:43] VITALS: BP 168/78; PULSE 82; O2SAT 93
[2023-05-09 07:44] VITALS: BP 155/67; PULSE 69; RESP 16; O2SAT 92
[2023-05-09] MEDS: Metoprolol Tartrate 12.5 MG HALFTAB PO ×2 (08:53→21:42)
[2023-05-09] MEDS: Cyanocobalamin (Vitamin B-12) 1,000 MCG TABLET 1000 MCG PO (08:53)
[2023-05-09] MEDS: buPROPion HCl XL 150 MG TAB.ER.24H PO (08:53)
[2023-05-09] MEDS: Loratadine 10 MG TABLET PO (08:53)
[2023-05-09] MEDS: Aspirin Enteric Coated 81 MG TABLET.DR PO (08:53)
[2023-05-09] MEDS: Pravastatin Sodium 80 MG TABLET PO (09:08)
[2023-05-09] MEDS: Morphine Sulfate 2 MG/ML CARTRIDGE IVPUSH ×2 (09:08→14:25)
[2023-05-09] MEDS: Isosorbide Mononitrate 60 MG TAB.ER.24H PO (09:08)
[2023-05-09] MEDS: oxyCODONE HCl Immed Release 5 MG TABLET PO ×2 (12:43→18:01)
[2023-05-09 16:00] VITALS: BP 145/65; PULSE 80; RESP 20; TEMP 36.4; O2SAT 94
--- NOTE | 2023-05-09 17:14 | P.PNIM_ITS ---
Subjective Subjective Date of Service: 05/09/23 Interval History: Pain control adequate. Resting quietly in bed Review of Systems Denies chest pain Denies shortness of breath Denies nausea vomiting diarrhea Denies fever chills Admits to left-sided rib pain Physical Exam Vital Signs: Vital Signs: Last Vital Signs Temp 98.7 F 05/09/23 00:00 Pulse 69 05/09/23 07:44 Resp 16 05/09/23 07:44 BP 155/67 H 05/09/23 07:44 Pulse Ox 92 05/09/23 07:44 O2 Del Method Room Air 05/09/23 07:44 O2 Flow Rate 2 05/09/23 00:00 BMI result Body Mass Index 25.4 Const: Other: Comfortably lying in bed in no respiratory distress Resp: Other: Bibasilar and inspiratory crackles otherwise clear. No rales rhonchi or wheezes Cardio: Other: No S4; positive S1-S2; no S3 murmurs rubs or gallops GI: Other: Soft nontender nondistended with normoactive bowel sounds Neuro: Other: Cranial nerves 2-12 grossly intact as tested. Motor 5/5 all extremities sensation stacked Extrem: Other: No edema bilaterally Objective Data Active Medications Acetaminophen (Acetaminophen 325 Mg Tablet) 650 mg PO Q6H PRN PRN Reason: Pain, Mild (Pain Scale 1-3) Last Admin: 05/08/23 21:20 Dose: 650 mg Documented By: ALISSON Albuterol Sulfate (Albuterol Sulfate 90 Mcg 8 Gm Inhaler) 2 puff INHALE Q4H PRN PRN Reason: Wheezing Aspirin (Aspirin Enteric Coated 81 Mg Tablet.) 81 mg PO DAILY [facility] Last Admin: 05/09/23 08:53 Dose: 81 mg Documented By: CLIVE Bupropion HCl (Bupropion Hcl Xl 150 Mg Tab.Er.24h) 150 mg PO DAILY [facility] Last Admin: 05/09/23 08:53 Dose: 150 mg Documented By: CLIVE Calcitriol (Calcitriol 0.25 Mcg Capsule) 0.25 mcg PO Q48H [facility] Cyanocobalamin (Cyanocobalamin (Vitamin B-12) 1,000 Mcg Tablet) 1,000 mcg PO DAILY [facility] Last Admin: 05/09/23 08:53 Dose: 1,000 mcg Documented By: CLIVE Docusate Sodium (Docusate Sodium 100 Mg Capsule) 100 mg PO DAILY PRN PRN Reason: Constipation Fluticasone Propionate (Fluticasone Propionate Nasal 16 Gm [place]) 2 spray NOSTRIL-B DAILY [facility] Last Admin: 05/09/23 09:23 Dose: Not Given Documented By: CLIVE Non-Admin Reason: Patient Refused Gabapentin (Gabapentin 300 Mg Capsule) 300 mg PO BEDTIME [facility] Last Admin: 05/08/23 21:21 Dose: 300 mg Documented By: ALISSON Isosorbide Mononitrate (Isosorbide Mononitrate 60 Mg Tab.Er.24h) 60 mg PO DAILY [facility]; Protocol Last Admin: 05/09/23 09:08 Dose: 60 mg Documented By: CLIVE Loratadine (Loratadine 10 Mg Tablet) 10 mg PO DAILY [facility] Last Admin: 05/09/23 08:53 Dose: 10 mg Documented By: CLIVE Melatonin (Melatonin 3 Mg Tablet) 9 mg PO BEDTIME PRN PRN Reason: Insomnia Metoprolol Tartrate (Metoprolol Tartrate 12.5 Mg Halftab) 12.5 mg PO BID [facility]; Protocol Last Admin: 05/09/23 08:53 Dose: 12.5 mg Documented By: CLIVE Mirtazapine (Mirtazapine 15 Mg Tablet) 45 mg PO BEDTIME [facility] Last Admin: 05/08/23 21:22 Dose: 45 mg Documented By: ALISSON Morphine Sulfate (Morphine Sulfate 2 Mg/Ml Cartridge) 2 mg IVPUSH Q4H PRN; Protocol PRN Reason: Pain, Severe (Pain Scale 7-10) Last Admin: 05/09/23 14:25 Dose: 2 mg Documented By: ALEXUS Nitroglycerin (Nitroglycerin 0.4 Mg Tab.Subl) 0.4 mg SUBLINGUAL Q5M PRN PRN Reason: Chest Pain Ondansetron HCl (Ondansetron Hcl 4 Mg/2 Ml Vial) 4 mg IVPUSH Q8H PRN PRN Reason: Nausea and Vomiting Oxybutynin Chloride (Oxybutynin Chloride Er 5 Mg Tab.Er.24) 15 mg PO BEDTIME [facility] Last Admin: 05/08/23 21:20 Dose: 15 mg Documented By: ALISSON Oxycodone HCl (Oxycodone Hcl Immed Release 5 Mg Tablet) 5 mg PO Q4H PRN PRN Reason: Pain, Moderate(Pain Scale 4-6) Last Admin: 05/09/23 12:43 Dose: 5 mg Documented By: SAKINA Pravastatin Sodium (Pravastatin Sodium 80 Mg Tablet) 80 mg PO DAILY [facility] Last Admin: 05/09/23 09:08 Dose: 80 mg Documented By: CLIVE Ropinirole HCl (Ropinirole Hcl 0.25 Mg Tablet) 0.25 mg PO BEDTIME [facility] Last Admin: 05/09/23 00:25 Dose: Not Given Documented By: MAYITO Non-Admin Reason: Med Not Available Sodium Chloride (0.9 % Sodium Chloride Flush 3 Ml Syringe) 3 ml IVFLUSH QSHIFT [facility] Last Admin: 05/09/23 12:46 Dose: Not Given Documented By: CLIVE Non-Admin Reason: See Note Torsemide (Torsemide 20 Mg Tablet) 20 mg PO Q48H [facility]; Protocol Warfarin Sodium (Warfarin Sodium 2.5 Mg Tablet) 2.5 mg PO DAILY@1800 [facility] Labs 05/09/23 05:32 05/09/23 05:32 Labs: Laboratory Results - last 24 hr 05/09/23 05/09/23 05/09/23 05:32 05:32 05:32 MCV 89.0 MCH 27.6 MCHC 31.0 RDW 15.4 Plt Count 99 L D MPV 11.4 Immature Gran % (Auto) 1.0 H Neut % (Auto) 39.3 L Lymph % (Auto) 14.2 L [place] % (Auto) 44.3 H Eos % (Auto) 0.8 Baso % (Auto) 0.4 Lymph # (Auto) 0.7 L [place] # (Auto) 2.3 H Eos # (Auto) 0.0 Baso # (Auto) 0.0 Abs Immat Gran (auto) 0.05 H Absolute Neuts (auto) 2.1 Absolute Nucleated RBC 0.000 Nucleated RBC % (auto) 0.0 Smear Tech's Comments VERIFIED PT 29.8 H INR 2.4 H Anion Gap 15 Estim Creat Clear Calc 47.0 Estimated GFR 54 Random Glucose 101 Calcium 9.5 Assessment and Plan (1) Acute respiratory failure with hypoxia: Status: Acute (2) Fracture, ribs: Status: Acute Plan 83-year-old female with history of paroxysmal atrial fibrillation anticoagulated with Coumadin, depression, hyperlipidemia, osteoporosis, urge incontinence, and hypertension to be observed for intractable rib pain with hypoxia secondary to fall 1.Acute hypoxic respiratory failure/secondary to rib fracture -pain management with opioids -titrate O2 to maintain sats greater than equal 90% -encourage out of bed -PT recommending short-term rehab 2.HTN -pain management -continue home meds -adjust as indicated 3.Paroxysmal atrial fibrillation -rate control adequate -continue outpatient therapies adjust as indicated -daily PT INR. .. Maintain INR between 2 and 3 DVT Coumadin Full code Requires ongoing hospitalization to correct hypoxic respiratory failure with pain control for rib fracture. Will need safe placement Time Spent With Patient Time: Total time managing care of this patient today ____ minutes. Quality Stroke Does the patient have a stroke diagnosis?: No VTE Prior VTE?: No VTE Risk Level:: Medical - moderate - high VTE Device Contraindication: Treatment Not Indicated VTE Drug Contraindication: N/A - Med Ordered
[2023-05-09] MEDS: Warfarin Sodium 2.5 MG TABLET PO (17:55)
[2023-05-09 20:00] VITALS: BP 120/60; PULSE 100; RESP 16; TEMP 36.8; O2SAT 94
[2023-05-09] MEDS: oxyBUTYnin chloride ER 5 MG TAB.ER.24 15 MG PO (21:41)
[2023-05-09] MEDS: Mirtazapine 15 MG TABLET 45 MG PO (21:41)
[2023-05-09] MEDS: Gabapentin 300 MG CAPSULE PO (21:42)
[2023-05-09] MEDS: rOPINIRole HCL 0.25 MG TABLET PO (21:42)
[2023-05-10] VITALS (7 sets, daily range): BP systolic 96–150; BP diastolic 52–71; PULSE 80–124; RESP 16–20; TEMP 36.8–39.7; O2SAT 91–99
--- NOTE | 2023-05-10 | ECG_ITS ---
Test Reason : tachycardia Blood Pressure : / mmHG Vent. Rate : 122 BPM Atrial Rate : 122 BPM P-R Int : 164 ms QRS Dur : 082 ms QT Int : 326 ms P-R-T Axes : 104 001 100 degrees QTc Int : 464 ms Sinus tachycardia with Premature supraventricular complexes Left ventricular hypertrophy with repolarization abnormality ( Andriy product ) Abnormal ECG When compared with ECG of 08-MAY-2023 14:08, Vent. rate has increased BY 54 BPM Referred By: Gin Adams Electronically Signed By:LUCIANO WRIGHT
[2023-05-10 06:36] LABS: INTERNATIONAL NORM RATIO 2.3 (0.9-1.1); Prothrombin Time 28.3 SEC (11.1-13.3)
[2023-05-10] MEDS: oxyCODONE HCl Immed Release 5 MG TABLET PO ×2 (07:31→17:23)
[2023-05-10] MEDS: Loratadine 10 MG TABLET PO (08:27)
[2023-05-10] MEDS: Isosorbide Mononitrate 60 MG TAB.ER.24H PO (08:27)
[2023-05-10] MEDS: Torsemide 20 MG TABLET PO (08:27)
[2023-05-10] MEDS: Metoprolol Tartrate 12.5 MG HALFTAB PO (08:27)
[2023-05-10] MEDS: Aspirin Enteric Coated 81 MG TABLET.DR PO (08:27)
[2023-05-10] MEDS: 0.9 % Sodium Chloride Flush 3 ML SYRINGE IVFLUSH ×3 (08:27→20:44)
[2023-05-10] MEDS: Cyanocobalamin (Vitamin B-12) 1,000 MCG TABLET 1000 MCG PO (08:27)
[2023-05-10] MEDS: buPROPion HCl XL 150 MG TAB.ER.24H PO (08:27)
[2023-05-10] MEDS: Pravastatin Sodium 80 MG TABLET PO (08:27)
[2023-05-10] MEDS: calcitrioL 0.25 MCG CAPSULE PO (08:27)
[2023-05-10] MEDS: Fluticasone Propionate Nasal 16 GM SPRAY 2 SPRAY NOSTRIL-B (10:29)
--- NOTE | 2023-05-10 14:25 | MHC.CM.PN ---
Addendum entered by Philly Pinto 05/10/23 15:03: [facility] HAS ACCEPTED PT CLINICALLY PENDING AVAILABLE BED. PER [facility], THEY EXPECT A BED TO BE OPEN BY SUNDAY Original Note: PT REPORTS SHE LIVES AT HOME WITH HER AND IS INDEPENDENT WITH SELF CARE SHE DENIES USE OF DME OR HOME SERVICES PT HAS A HCP ON FILE PCP: [facility] DELIVERED DCP: STR HAS BEEN RECOMMENDED, PT STATED PREFERENCE IS [facility], REFERRAL OUT, AWAITING RESPONSE
--- NOTE | 2023-05-10 14:47 | HO.PM.IMPN ---
Subjective Subjective Date of Service: 05/10/23 Interval History: No acute issues overnight. Pain control adequate Review of Systems Denies chest pain Denies shortness of breath Denies nausea vomiting diarrhea Denies fever chills Admits to left-sided rib pain Physical Exam Vital Signs: Vital Signs: Last Vital Signs Temp 98.3 F 05/10/23 06:56 Pulse 80 05/10/23 06:56 Resp 20 05/10/23 06:56 BP 150/70 H 05/10/23 06:56 Pulse Ox 92 05/10/23 06:56 O2 Del Method Nasal Cannula 05/10/23 06:56 O2 Flow Rate 3 05/10/23 06:56 BMI result Body Mass Index 25.4 Const: Other: Comfortably lying in bed in no respiratory distress Resp: Other: Bibasilar and inspiratory crackles otherwise clear. No rales rhonchi or wheezes Cardio: Other: No S4; positive S1-S2; no S3 murmurs rubs or gallops GI: Other: Soft nontender nondistended with normoactive bowel sounds Neuro: Other: Cranial nerves 2-12 grossly intact as tested. Motor 5/5 all extremities sensation stacked Extrem: Other: No edema bilaterally Objective Data Active Medications Acetaminophen (Acetaminophen 325 Mg Tablet) 650 mg PO Q6H PRN PRN Reason: Pain, Mild (Pain Scale 1-3) Last Admin: 05/08/23 21:20 Dose: 650 mg Documented By: ALISSON Albuterol Sulfate (Albuterol Sulfate 90 Mcg 8 Gm Inhaler) 2 puff INHALE Q4H PRN PRN Reason: Wheezing Aspirin (Aspirin Enteric Coated 81 Mg Tablet.) 81 mg PO DAILY [facility] Last Admin: 05/10/23 08:27 Dose: 81 mg Documented By: ALEXUS Bupropion HCl (Bupropion Hcl Xl 150 Mg Tab.Er.24h) 150 mg PO DAILY [facility] Last Admin: 05/10/23 08:27 Dose: 150 mg Documented By: ALEXUS Calcitriol (Calcitriol 0.25 Mcg Capsule) 0.25 mcg PO Q48H [facility] Last Admin: 05/10/23 08:27 Dose: 0.25 mcg Documented By: ALEXUS Cyanocobalamin (Cyanocobalamin (Vitamin B-12) 1,000 Mcg Tablet) 1,000 mcg PO DAILY [facility] Last Admin: 05/10/23 08:27 Dose: 1,000 mcg Documented By: ALEXUS Docusate Sodium (Docusate Sodium 100 Mg Capsule) 100 mg PO DAILY PRN PRN Reason: Constipation Fluticasone Propionate (Fluticasone Propionate Nasal 16 Gm [place]) 2 spray NOSTRIL-B DAILY [facility] Last Admin: 05/10/23 10:29 Dose: 2 spray Documented By: ALEXUS Gabapentin (Gabapentin 300 Mg Capsule) 300 mg PO BEDTIME [facility] Last Admin: 05/09/23 21:42 Dose: 300 mg Documented By: KARIN Isosorbide Mononitrate (Isosorbide Mononitrate 60 Mg Tab.Er.24h) 60 mg PO DAILY [facility]; Protocol Last Admin: 05/10/23 08:27 Dose: 60 mg Documented By: ALEXUS Loratadine (Loratadine 10 Mg Tablet) 10 mg PO DAILY [facility] Last Admin: 05/10/23 08:27 Dose: 10 mg Documented By: ALEXUS Melatonin (Melatonin 3 Mg Tablet) 9 mg PO BEDTIME PRN PRN Reason: Insomnia Metoprolol Tartrate (Metoprolol Tartrate 12.5 Mg Halftab) 12.5 mg PO BID [facility]; Protocol Last Admin: 05/10/23 08:27 Dose: 12.5 mg Documented By: ALEXUS Mirtazapine (Mirtazapine 15 Mg Tablet) 45 mg PO BEDTIME [facility] Last Admin: 05/09/23 21:41 Dose: 45 mg Documented By: KARIN Morphine Sulfate (Morphine Sulfate 2 Mg/Ml Cartridge) 2 mg IVPUSH Q4H PRN; Protocol PRN Reason: Pain, Severe (Pain Scale 7-10) Last Admin: 05/09/23 14:25 Dose: 2 mg Documented By: ALEXUS Nitroglycerin (Nitroglycerin 0.4 Mg Tab.Subl) 0.4 mg SUBLINGUAL Q5M PRN PRN Reason: Chest Pain Ondansetron HCl (Ondansetron Hcl 4 Mg/2 Ml Vial) 4 mg IVPUSH Q8H PRN PRN Reason: Nausea and Vomiting Oxybutynin Chloride (Oxybutynin Chloride Er 5 Mg Tab.Er.24) 15 mg PO BEDTIME [facility] Last Admin: 05/09/23 21:41 Dose: 15 mg Documented By: KARIN Oxycodone HCl (Oxycodone Hcl Immed Release 5 Mg Tablet) 5 mg PO Q4H PRN PRN Reason: Pain, Moderate(Pain Scale 4-6) Last Admin: 05/10/23 07:31 Dose: 5 mg Documented By: ALEXUS Pravastatin Sodium (Pravastatin Sodium 80 Mg Tablet) 80 mg PO DAILY [facility] Last Admin: 05/10/23 08:27 Dose: 80 mg Documented By: ALEXUS Ropinirole HCl (Ropinirole Hcl 0.25 Mg Tablet) 0.25 mg PO BEDTIME [facility] Last Admin: 05/09/23 21:42 Dose: 0.25 mg Documented By: KARIN Sodium Chloride (0.9 % Sodium Chloride Flush 3 Ml Syringe) 3 ml IVFLUSH QSHIFT [facility] Last Admin: 05/10/23 08:27 Dose: 3 ml Documented By: ALEXUS Torsemide (Torsemide 20 Mg Tablet) 20 mg PO Q48H [facility]; Protocol Last Admin: 05/10/23 08:27 Dose: 20 mg Documented By: ALEXUS Warfarin Sodium (Warfarin Sodium 2.5 Mg Tablet) 2.5 mg PO DAILY@1800 [facility] Last Admin: 05/09/23 17:55 Dose: 2.5 mg Documented By: ALEXUS Labs 05/09/23 05:32 05/09/23 05:32 Labs: Laboratory Results - last 24 hr 05/10/23 06:02 PT 28.3 H INR 2.3 H Assessment and Plan (1) Acute respiratory failure with hypoxia: Status: Acute (2) Fracture, ribs: Status: Acute Plan 83-year-old female with history of paroxysmal atrial fibrillation anticoagulated with Coumadin, depression, hyperlipidemia, osteoporosis, urge incontinence, and hypertension to be observed for intractable rib pain with hypoxia secondary to fall 1.Acute hypoxic respiratory failure/secondary to rib fracture -pain management with opioids -titrate O2 to maintain sats greater than equal 90% -encourage out of bed -PT recommending short-term rehab.... Awaiting response 2.HTN -pain management -continue home meds -adjust as indicated 3.Paroxysmal atrial fibrillation -rate control adequate -continue outpatient therapies adjust as indicated -daily PT INR. .. Maintain INR between 2 and 3 DVT Coumadin Full code Requires ongoing hospitalization to correct hypoxic respiratory failure with pain control for rib fracture. Will need safe placement Time Spent With Patient Time: Total time managing care of this patient today ____ minutes. Quality Stroke Does the patient have a stroke diagnosis?: No VTE Prior VTE?: No VTE Risk Level:: Medical - moderate - high VTE Device Contraindication: Treatment Not Indicated VTE Drug Contraindication: N/A - Med Ordered
[2023-05-10] MEDS: Warfarin Sodium 2.5 MG TABLET PO (17:08)
--- NOTE | 2023-05-10 19:42 | PM.EVENT ---
Event Note Date of Service: 05/11/23 Event Note: Nurse noted the patient to be more lethargic, has a fever, and not her baseline. Patient is somnolent but arousable, answers questions appropriately, no neurological deficits, no acute complaint. Will give Tylenol, basic lab orders, chest x-ray , UA, CBC, CMP, lactic acid, and blood cultures ordered Given 1 dose of vancomycin and Zosyn pending workup Time Spent With Patient Time: Total time managing care of this patient today ____ minutes.
[2023-05-10] MEDS: Piperacillin Sodium/Tazobactam 3.375 GM in 0.9 % Sodium Chloride 50 ML IV (20:10)
[2023-05-10 20:21] LABS: Appearance Urine Clear; Color Urine Yellow; Glucose Urine UA Negative (Negative); Leukocyte Esterase Urine Negative (Negative); Nitrite Urine Negative (Negative); PH 5.5 (5.0-9.0); Urine Blood Negative (Negative); Urine Ketones Negative (Negative); Urine Protein Trace mg/dL (Neg-Trace)
[2023-05-10] MEDS: Acetaminophen Supp 650 MG SUPP.RECT PR (20:21)
[2023-05-10 20:24] LABS: Basophils Percent Auto 0.2 % (0-2); Eosinophils Percent Auto 0.3 % (0-4); Hematocrit 30.9 % (37.0-47.0); Hemoglobin 9.5 g/dl (12.0-16.0); Imm Gran Abs Auto 0.05 X10*3/uL (0.00-0.03); Imm Gran Pct Auto 0.8 % (0.0-0.4); Lymphocytes Absolute Auto 0.6 X10*3/uL (1.2-4.9); Lymphocytes Percent Auto 8.8 % (20-40); MANUAL DIFF FLAG SCAN; Mean Corpuscular HGB Conc 30.7 g/dl (31.0-35.0); Mean Corpuscular Hemoglobin 27.1 pg (27.0-33.0); Mean Corpuscular Volume 88.3 fL (80.0-98.0); Mean Platelet Volume 11.4 fL (9.4-12.3); Monocytes Absolute Auto 2.6 X10*3/uL (0.1-1.2); Monocytes Percent Auto 41.3 % (2-11); Neutrophils Absolute Auto 3.1 x10*3/uL (2.0-8.3); Neutrophils Percent Auto 48.6 % (45-73); Platelet Count 117 X10*3/uL (160-400); Red Cell Distribution Width 15.5 % (11.0-16.0); SCAN SMEAR FLAG 1; White Blood Count 6.4 X10*3/uL (4.8-10.8)
[2023-05-10 20:33] LABS: Lactic Acid 1.2 mmol/L (0.5-2.0)
[2023-05-10 20:38] LABS: Alanine Aminotransferase 8 U/L (0-31); Albumin Level 3.4 g/dL (3.5-5.0); Alkaline Phosphatase 66 U/L (39-117); Anion Gap 13 (12-20); Aspartate Amino Transferase 13 U/L (5-31); Bilirubin Total 0.7 mg/dL (0.0-1.0); Blood Urea Nitrogen 17 mg/dL (9-16); Calcium 9.2 mg/dL (8.4-10.2); Carbon Dioxide 29 mmol/L (22-29); Chloride 101 mmol/L (96-108); Creatinine Clr Calc Pharmacy 32.6; Estimated Glomerular Filt Rate 36; Glucose Random 141 mg/dL (60-115); Sodium 139 mmol/L (135-145); Total Protein 6.6 g/dL (6.5-8.0)
[2023-05-10] MEDS: vancomycin/NS 2,000 MG/500 ML PLAST..BAG 333.33 MG IV (20:42)
[2023-05-10 20:46] LABS: Troponin-I High Sensitivity 35.9 ng/L (<3.5-17.0)
[2023-05-10] MEDS: Gabapentin 300 MG CAPSULE PO (22:18)
[2023-05-10] MEDS: Mirtazapine 15 MG TABLET 45 MG PO (22:19)
[2023-05-10] MEDS: rOPINIRole HCL 0.25 MG TABLET PO (22:19)
[2023-05-10] MEDS: oxyBUTYnin chloride ER 5 MG TAB.ER.24 15 MG PO (22:19)
[2023-05-10] MEDS: Lactated Ringers 1,000 ML 100 ML IVCONT (23:59)
[2023-05-11 00:01] LABS: SLIDE REVIEW VERIFIED
[2023-05-11 03:42] VITALS: BP 155/72; PULSE 84; RESP 16; TEMP 36.8; O2SAT 93
--- NOTE | 2023-05-11 04:33 | PC.NURSE ---
Approximately around 19:30 pt appeared to be more lethargic than previous shift, had fever of 103.2 orally, HR 125, O2 91% ON 3L and somnolent. This RN notified hospitalist MD Adams of the situation. MD Adams came to pt's bedside to assess pt new symptoms. New orders were placed in per MD Adams. EKG, chest xray, labs, straight cath, UA, and one time dose of Tylenol Supp WA, IV Vanco, & IV Zosyn was ordered. This RN straight cath pt for 150ml of yellow urine. Pt was given the Tylenol supp WA and IV abx were started per NOV. Will continue to monitor pt's condition.
[2023-05-11 05:47] LABS: Prothrombin Time 24.9 SEC (11.1-13.3)
[2023-05-11 07:11] VITALS: BP 149/67; PULSE 86; RESP 24; TEMP 36.4; O2SAT 95
[2023-05-11 08:20] LABS: COVID-19 Test Negative (Negative); IDNOW Serial# 6674DD1D
[2023-05-11] MEDS: buPROPion HCl XL 150 MG TAB.ER.24H PO (08:55)
[2023-05-11] MEDS: Aspirin Enteric Coated 81 MG TABLET.DR PO (08:55)
[2023-05-11] MEDS: Metoprolol Tartrate 12.5 MG HALFTAB PO ×2 (08:55→19:25)
[2023-05-11] MEDS: Cyanocobalamin (Vitamin B-12) 1,000 MCG TABLET 1000 MCG PO (08:55)
[2023-05-11] MEDS: Pravastatin Sodium 80 MG TABLET PO (08:55)
[2023-05-11] MEDS: Loratadine 10 MG TABLET PO (08:56)
[2023-05-11] MEDS: Isosorbide Mononitrate 60 MG TAB.ER.24H PO (08:56)
[2023-05-11] MEDS: Fluticasone Propionate Nasal 16 GM SPRAY 2 SPRAY NOSTRIL-B (08:56)
[2023-05-11] MEDS: Lactated Ringers 1,000 ML 100 ML IVCONT ×2 (08:58→21:48)
[2023-05-11] MEDS: Docusate Sodium 100 MG CAPSULE PO (09:20)
[2023-05-11] MEDS: oxyCODONE HCl Immed Release 5 MG TABLET PO (09:20)
[2023-05-11 10:42] VITALS: BP 149/67; PULSE 86; O2SAT 95
--- NOTE | 2023-05-11 14:10 | MHC.CM.PN ---
PT EXPECTED TO DC TOMORROW TO [facility] PTS PREFERRED FACILITY, [facility], IS OFFERING A BED PT WILL DC TO [facility] FOR [facility] TOMORROW VIA [facility]DONALD
--- NOTE | 2023-05-11 15:28 | HO.PM.IMPN ---
Subjective Subjective Date of Service: 05/11/23 Interval History: Events of overnight noted. [place] fever to 103.4 with desaturation. Chest x-ray negative however still apparently started on antibiotics. Still somnolent but arousable today. No acute distress Review of Systems Denies chest pain Denies shortness of breath Denies nausea vomiting diarrhea Denies fever chills Admits to left-sided rib pain Physical Exam Vital Signs: Vital Signs: Last Vital Signs Temp 97.6 F 05/11/23 07:11 Pulse 86 05/11/23 10:42 Resp 24 H 05/11/23 07:11 BP 149/67 H 05/11/23 10:42 Pulse Ox 95 05/11/23 10:42 O2 Del Method Nasal Cannula 05/11/23 07:11 O2 Flow Rate 2 05/11/23 07:11 BMI result Body Mass Index 25.4 Const: Other: Comfortably lying in bed in no respiratory distress Resp: Other: Bibasilar and inspiratory crackles otherwise clear. No rales rhonchi or wheezes Cardio: Other: No S4; positive S1-S2; no S3 murmurs rubs or gallops GI: Other: Soft nontender nondistended with normoactive bowel sounds Neuro: Other: Cranial nerves 2-12 grossly intact as tested. Motor 5/5 all extremities sensation stacked Extrem: Other: No edema bilaterally Objective Data Active Medications Acetaminophen (Acetaminophen 325 Mg Tablet) 650 mg PO Q6H PRN PRN Reason: Pain, Mild (Pain Scale 1-3) Last Admin: 05/08/23 21:20 Dose: 650 mg Documented By: ALISSON Acetaminophen (Acetaminophen Supp 650 Mg Supp.Rect) 650 mg NE Q6H PRN PRN Reason: fever Albuterol Sulfate (Albuterol Sulfate 90 Mcg 8 Gm Inhaler) 2 puff INHALE Q4H PRN PRN Reason: Wheezing Aspirin (Aspirin Enteric Coated 81 Mg Tablet.Dr) 81 mg PO DAILY [facility] Last Admin: 05/11/23 08:55 Dose: 81 mg Documented By: EDNA Bupropion HCl (Bupropion Hcl Xl 150 Mg Tab.Er.24h) 150 mg PO DAILY [facility] Last Admin: 05/11/23 08:55 Dose: 150 mg Documented By: EDNA Calcitriol (Calcitriol 0.25 Mcg Capsule) 0.25 mcg PO Q48H [facility] Last Admin: 05/10/23 08:27 Dose: 0.25 mcg Documented By: ALEXUS Cyanocobalamin (Cyanocobalamin (Vitamin B-12) 1,000 Mcg Tablet) 1,000 mcg PO DAILY [facility] Last Admin: 05/11/23 08:55 Dose: 1,000 mcg Documented By: EDNA Docusate Sodium (Docusate Sodium 100 Mg Capsule) 100 mg PO DAILY PRN PRN Reason: Constipation Last Admin: 05/11/23 09:20 Dose: 100 mg Documented By: EDNA Fluticasone Propionate (Fluticasone Propionate Nasal 16 Gm [place]) 2 spray NOSTRIL-B DAILY [facility] Last Admin: 05/11/23 08:56 Dose: 2 spray Documented By: EDNA Gabapentin (Gabapentin 300 Mg Capsule) 300 mg PO BEDTIME [facility] Last Admin: 05/10/23 22:18 Dose: 300 mg Documented By: JOSELUIS Lactated Ringer's (Lr) 1,000 mls @ 100 mls/hr IVCONT .Q10H [facility] Last Admin: 05/11/23 08:58 Dose: 100 mls/hr Documented By: EDNA Isosorbide Mononitrate (Isosorbide Mononitrate 60 Mg Tab.Er.24h) 60 mg PO DAILY [facility]; Protocol Last Admin: 05/11/23 08:56 Dose: 60 mg Documented By: EDNA Loratadine (Loratadine 10 Mg Tablet) 10 mg PO DAILY [facility] Last Admin: 05/11/23 08:56 Dose: 10 mg Documented By: EDNA Melatonin (Melatonin 3 Mg Tablet) 9 mg PO BEDTIME PRN PRN Reason: Insomnia Metoprolol Tartrate (Metoprolol Tartrate 12.5 Mg Halftab) 12.5 mg PO BID [facility]; Protocol Last Admin: 05/11/23 08:55 Dose: 12.5 mg Documented By: EDNA Mirtazapine (Mirtazapine 15 Mg Tablet) 45 mg PO BEDTIME [facility] Last Admin: 05/10/23 22:19 Dose: 45 mg Documented By: JOSELUIS Morphine Sulfate (Morphine Sulfate 2 Mg/Ml Cartridge) 2 mg IVPUSH Q4H PRN; Protocol PRN Reason: Pain, Severe (Pain Scale 7-10) Last Admin: 05/09/23 14:25 Dose: 2 mg Documented By: ALEXUS Nitroglycerin (Nitroglycerin 0.4 Mg Tab.Subl) 0.4 mg SUBLINGUAL Q5M PRN PRN Reason: Chest Pain Ondansetron HCl (Ondansetron Hcl 4 Mg/2 Ml Vial) 4 mg IVPUSH Q8H PRN PRN Reason: Nausea and Vomiting Oxybutynin Chloride (Oxybutynin Chloride Er 5 Mg Tab.Er.24) 15 mg PO BEDTIME [facility] Last Admin: 05/10/23 22:19 Dose: 15 mg Documented By: JOSELUIS Oxycodone HCl (Oxycodone Hcl Immed Release 5 Mg Tablet) 5 mg PO Q4H PRN PRN Reason: Pain, Moderate(Pain Scale 4-6) Last Admin: 05/11/23 09:20 Dose: 5 mg Documented By: EDNA Pravastatin Sodium (Pravastatin Sodium 80 Mg Tablet) 80 mg PO DAILY [facility] Last Admin: 05/11/23 08:55 Dose: 80 mg Documented By: EDNA Ropinirole HCl (Ropinirole Hcl 0.25 Mg Tablet) 0.25 mg PO BEDTIME [facility] Last Admin: 05/10/23 22:19 Dose: 0.25 mg Documented By: JOSELUIS Sodium Chloride (0.9 % Sodium Chloride Flush 3 Ml Syringe) 3 ml IVFLUSH QSHIFT [facility] Last Admin: 05/11/23 15:15 Dose: Not Given Documented By: EDNA Non-Admin Reason: IV Running Torsemide (Torsemide 20 Mg Tablet) 20 mg PO Q48H [facility]; Protocol Last Admin: 05/10/23 08:27 Dose: 20 mg Documented By: ALEXUS Warfarin Sodium (Warfarin Sodium 2.5 Mg Tablet) 2.5 mg PO DAILY@1800 [facility] Last Admin: 05/10/23 17:08 Dose: 2.5 mg Documented By: ALEXUS Labs 05/10/23 20:05 05/10/23 20:05 Labs: Laboratory Results - last 24 hr 05/10/23 05/10/23 05/10/23 20:05 20:05 20:05 MCV 88.3 MCH 27.1 MCHC 30.7 L RDW 15.5 Plt Count 117 L MPV 11.4 Immature Gran % (Auto) 0.8 H Neut % (Auto) 48.6 Lymph % (Auto) 8.8 L [place] % (Auto) 41.3 H Eos % (Auto) 0.3 Baso % (Auto) 0.2 Lymph # (Auto) 0.6 L [place] # (Auto) 2.6 H Eos # (Auto) 0.0 Baso # (Auto) 0.0 Abs Immat Gran (auto) 0.05 H Absolute Neuts (auto) 3.1 Absolute Nucleated RBC 0.000 Nucleated RBC % (auto) 0.0 Smear Tech's Comments VERIFIED PT INR Anion Gap 13 Estim Creat Clear Calc 32.6 Estimated GFR 36 Random Glucose 141 H Lactic Acid 1.2 Calcium 9.2 Total Bilirubin 0.7 AST 13 ALT 8 Alkaline Phosphatase 66 Total Protein 6.6 Albumin 3.4 L Urine Color Urine Appearance Urine pH Ur Specific [place] Urine Protein Urine Glucose (UA) Urine Ketones Urine Blood Urine Nitrite Ur Leukocyte Esterase COVID-19 ([facility]) COVID-19 [employer] 05/10/23 05/11/23 05/11/23 20:09 05:20 07:35 MCV MCH MCHC RDW Plt Count MPV Immature Gran % (Auto) Neut % (Auto) Lymph % (Auto) [place] % (Auto) Eos % (Auto) Baso % (Auto) Lymph # (Auto) [place] # (Auto) Eos # (Auto) Baso # (Auto) Abs Immat Gran (auto) Absolute Neuts (auto) Absolute Nucleated RBC Nucleated RBC % (auto) Smear Tech's Comments PT 24.9 H INR 2.0 H Anion Gap Estim Creat Clear Calc Estimated GFR Random Glucose Lactic Acid Calcium Total Bilirubin AST ALT Alkaline Phosphatase Total Protein Albumin Urine Color Yellow Urine Appearance Clear Urine pH 5.5 Ur Specific [place] 1.010 Urine Protein Trace Urine Glucose (UA) Negative Urine Ketones Negative Urine Blood Negative Urine Nitrite Negative Ur Leukocyte Esterase Negative COVID-19 ([facility]) Negative COVID-19 [employer] See Note Assessment and Plan (1) Acute respiratory failure with hypoxia: Status: Acute (2) Fracture, ribs: Status: Acute Plan 83-year-old female with history of paroxysmal atrial fibrillation anticoagulated with Coumadin, depression, hyperlipidemia, osteoporosis, urge incontinence, and hypertension to be observed for intractable rib pain with hypoxia secondary to fall 1.Acute hypoxic respiratory failure/secondary to rib fracture (fever spike overnight) -would continue vanco/Zosyn pending cultures -pain management with opioids -titrate O2 to maintain sats greater than equal 90% -encourage out of bed -PT recommending short-term rehab.... Awaiting response 2.HTN -pain management -continue home meds -adjust as indicated 3.Paroxysmal atrial fibrillation -rate control adequate -continue outpatient therapies adjust as indicated -daily PT INR. .. Maintain INR between 2 and 3 DVT Coumadin Full code Requires ongoing hospitalization to correct hypoxic respiratory failure with pain control for rib fracture. Will need safe placement Time Spent With Patient Time: Total time managing care of this patient today ____ minutes. Quality Stroke Does the patient have a stroke diagnosis?: No VTE Prior VTE?: No VTE Risk Level:: Medical - moderate - high VTE Device Contraindication: Treatment Not Indicated VTE Drug Contraindication: N/A - Med Ordered
[2023-05-11 15:49] VITALS: BP 156/72; PULSE 98; RESP 15; TEMP 36.8; O2SAT 93
[2023-05-11 16:44] LABS: Creatinine Clr Calc Pharmacy 43.4; Estimated Glomerular Filt Rate 50
[2023-05-11 16:45] LABS: Vancomycin Random 12.4 mcg/mL (15-20)
--- NOTE | 2023-05-11 16:51 | PHA.PROG ---
Admission Date/Time: May 09, 2023 11:00 Indication: respiratory infection Weight in k.018 kg Adjusted body weight in K.927 [place] body weight in K.2 Obesity Dosing Indication % IBW: NO OBESE Serum Creatinine - Last 168 Hours 05/08/23 05/09/23 05/10/23 14:18 05:32 20:05 Creatinine 1.11 0.98 1.41 H 05/11/23 16:20 Creatinine 1.06 Estimated CrCl and GFR - Last 168 Hours 05/08/23 05/09/23 05/10/23 14:18 05:32 20:05 Estim Creat Clear Calc 41.5 47.0 32.6 Estimated GFR 47 54 36 05/11/23 16:20 Estim Creat Clear Calc 43.4 Estimated GFR 50 Vancomycin Loading Dose: 2000 mg Current Vancomycin Dosing Regimen: 1000 Q24H Vancomycin Monitoring using AUC goal of 400 - 600 range with trough as surrogate marker: 474 Date and Time for next Vancomycin Level to be drawn: 05/12 @1800 Pharmacist Comments on Vancomycin Plan: Vancomycin dosing will take advantage of [employer] as a clinical decision support tool that uses Bayesian modeling to calculate individual patient's pharmacokinetic parameters and forecast the patient's drug concentration time course with the target goal AUC 24 range of 400 - 600 mg/L/hr.
[2023-05-11] MEDS: Warfarin Sodium 2.5 MG TABLET PO (17:21)
[2023-05-11] MEDS: Piperacillin Sodium/Tazobactam 3.375 GM in 0.9 % Sodium Chloride 50 ML IV ×2 (18:14→23:14)
[2023-05-11 19:24] VITALS: BP 137/65; PULSE 94; RESP 20; TEMP 36.4; O2SAT 92
[2023-05-11] MEDS: Gabapentin 300 MG CAPSULE PO (19:25)
[2023-05-11] MEDS: Mirtazapine 15 MG TABLET 45 MG PO (19:26)
[2023-05-11] MEDS: oxyBUTYnin chloride ER 5 MG TAB.ER.24 15 MG PO (19:27)
[2023-05-11] MEDS: rOPINIRole HCL 0.25 MG TABLET PO (19:28)
[2023-05-11] MEDS: vancomycin HCL 1,000 MG in 0.9 % Sodium Chloride 250 ML 270 MG IV (19:28)
[2023-05-11] MEDS: 0.9 % Sodium Chloride Flush 3 ML SYRINGE IVFLUSH (19:29)
[2023-05-12 04:00] VITALS: BP 168/92; PULSE 86; RESP 16; TEMP 37.2; O2SAT 93
[2023-05-12] MEDS: Acetaminophen 325 MG TABLET 650 MG PO (04:23)
[2023-05-12] MEDS: Piperacillin Sodium/Tazobactam 3.375 GM in 0.9 % Sodium Chloride 50 ML IV ×2 (04:54→11:15)
[2023-05-12 06:04] LABS: Prothrombin Time 24.5 SEC (11.1-13.3)
[2023-05-12 06:19] LABS: Estimated Glomerular Filt Rate 57
[2023-05-12 07:33] VITALS: BP 167/79; PULSE 73; RESP 16; TEMP 36; O2SAT 93
[2023-05-12] MEDS: Cyanocobalamin (Vitamin B-12) 1,000 MCG TABLET 1000 MCG PO (08:26)
[2023-05-12] MEDS: calcitrioL 0.25 MCG CAPSULE PO (08:26)
[2023-05-12] MEDS: Isosorbide Mononitrate 60 MG TAB.ER.24H PO (08:26)
[2023-05-12] MEDS: Docusate Sodium 100 MG CAPSULE PO (08:26)
[2023-05-12] MEDS: Loratadine 10 MG TABLET PO (08:26)
[2023-05-12] MEDS: buPROPion HCl XL 150 MG TAB.ER.24H PO (08:26)
[2023-05-12] MEDS: Aspirin Enteric Coated 81 MG TABLET.DR PO (08:27)
[2023-05-12] MEDS: Torsemide 20 MG TABLET PO (08:27)
[2023-05-12] MEDS: Metoprolol Tartrate 12.5 MG HALFTAB PO (08:27)
[2023-05-12] MEDS: Pravastatin Sodium 80 MG TABLET PO (08:27)
[2023-05-12] MEDS: Lactated Ringers 1,000 ML 100 ML IVCONT (08:29)
[2023-05-12] MEDS: Fluticasone Propionate Nasal 16 GM SPRAY 2 SPRAY NOSTRIL-B (08:35)
[2023-05-12] MEDS: oxyCODONE HCl Immed Release 5 MG TABLET PO (11:30)
--- NOTE | 2023-05-12 12:11 | PM.DS ---
DS: Providers Provider Date of Service: 05/12/23 Date of admission: 05/09/23 11:00 Date of discharge: 05/12/23 Primary care physician: Nichole Pantoja MD DS: Diagnosis Discharge Diagnosis (1) Acute respiratory failure with hypoxia: Status: Acute (2) Fracture, ribs: Status: Acute DS: Summary Hospital Course Hospital Course: 83-year-old female with history of paroxysmal atrial fibrillation anticoagulated with Coumadin, depression, hyperlipidemia, osteoporosis, urge incontinence, and hypertension presented to the ED earlier today for evaluation of injury sustained during an accidental fall.? She states she was getting up from her recliner and lost her balance falling to the right side.? She does not believe she hit her head or lose consciousness.? She denies any prodrome leading up to the fall including lightheadedness, shortness of breath, visual changes, palpitations, or chest pain.? She does report difficulty ambulating since the fall.? On arrival, patient hypertensive to 171/93, vitals otherwise stable.? Did develop hypoxia to 87% placed on 2 L supplemental O2 maintaining 92% oximetry.? Hematology studies consistent with baseline.? INR 2.9, renal function normal, electrolyte levels normal.? Head CT negative for any acute intracranial abnormality.? CT of the cervical spine shows degenerative changes, but no acute fracture, dislocation, or subluxation.? CT chest shows mildly displaced right-sided posterolateral 6th through 8th right rib fractures as well as age-indeterminate compression deformities at L2, L3, L5 with associated vertebroplasty cement.? There are multifocal nodular like opacities bilateral lungs which are nonspecific, follow-up CT in 3 months recommended.? There is mild bronchial wall thickening.? Incidentally noted 4.5 cm dilatation of the ascending thoracic aorta.? X-ray of the right hand/wrist shows mild degenerative joint changes consistent with osteoarthritis.? X-ray of the left hand shows generalized osteopenia and arthritic changes but no overt acute fracture.? There is also chronic appearing deformity of the distal radius possibly secondary to old healed fracture.? In the ED, received lidocaine patch and IV morphine.? Given she is still complaining of 9/10 pain with ongoing hypoxia, will observe for pain management with a possible placement to short-term rehab. Hospital Course Admitted to general medical floor and pain control manage with opiates. Approximately 24 hours and hospitalization patient spiked a fever to 103 for which blood cultures were drawn and chest x-ray was taken. She was empirically started on vancomycin and Zosyn. Chest x-ray failed to demonstrate any acute infiltrate and blood cultures have been negative up to date. At this point in time question whether this was related to atelectasis or other issues. Given such will complete oral course of doxy as outpatient. At this point time she is medically acceptable to transfer to [facility] with hopes to return home. Anticipated stay will likely be less than 30 days Time Spent with Patient Time attestation: Total time managing care of this patient today ____ minutes. Discharge coordination time: Greater than 30 minutes Quality: Safe Use of Opioids Does Pt have an Active Cancer Diagnosis on the Problem List?: No Quality: Stroke Does the patient have a stroke diagnosis?: No Physical Exam Vital Signs: Vital Signs: Last Vital Signs Temp 96.8 F 05/12/23 07:33 Pulse 73 05/12/23 07:33 Resp 16 05/12/23 07:33 BP 167/79 H 05/12/23 07:33 Pulse Ox 93 05/12/23 07:33 O2 Del Method Nasal Cannula 05/12/23 07:33 O2 Flow Rate 2 05/12/23 07:33 BMI result Body Mass Index 25.4 Const: Other: Comfortably lying in bed in no respiratory distress Resp: Other: Bibasilar and inspiratory crackles otherwise clear. No rales rhonchi or wheezes Cardio: Other: No S4; positive S1-S2; no S3 murmurs rubs or gallops GI: Other: Soft nontender nondistended with normoactive bowel sounds Neuro: Other: Cranial nerves 2-12 grossly intact as tested. Motor 5/5 all extremities sensation stacked Extrem: Other: No edema bilaterally DS: Data Data Completed and Pending Labs on day of discharge: Laboratory Results - last 24 hr 05/11/23 05/11/23 05/12/23 16:20 16:20 05:11 PT INR Creatinine 1.06 0.94 Estim Creat Clear Calc 43.4 49.0 Estimated GFR 50 57 Random Vancomycin 12.4 L 05/12/23 05:11 PT 24.5 H INR 2.0 H Creatinine Estim Creat Clear Calc Estimated GFR Random Vancomycin Preliminary micro results at discharge 05/10/23 20:05 Blood Culture - Preliminary Blood - Venous No growth after 24 hours. 05/10/23 20:05 Blood Culture - Preliminary Blood - Venous No growth after 24 hours. Discharge Plan Discharge Anticipated Discharge Date/Time: 05/12/23 12:06 Patient Disposition: er Inpatient Rehab Fac Discharge Diagnosis: Right-sided rib fractures Referrals: [facility] [Outside] Nichole Pantoja MD [Primary Care Provider] - 1 Week Discharge Medications: New oxycodone 5 mg Tablet 5 mg PO Q4H PRN (Reason: Pain, Moderate(Pain Scale 4-6)) Qty: 30 0RF Rx Instructions: Partial Fill upon patient request. Continued gabapentin 300 mg capsule 300 mg PO BEDTIME metoprolol tartrate 25 mg tablet 12.5 mg PO BID cyanocobalamin (vitamin B-12) 1,000 mcg Tablet 1,000 mcg PO DAILY cetirizine 10 mg Tablet 10 mg PO DAILY glucosamine-chondroitin 1 tab PO BID torsemide 20 mg tablet 20 mg PO Q48H fluticasone propionate 50 mcg/actuation spray,suspension 2 spray intranasal DAILY bupropion HCl 150 mg tablet sustained-release 12 hr 150 mg PO DAILY oxybutynin chloride 15 mg tablet extended release 24hr 15 mg PO DAILY calcitriol 0.25 mcg capsule 0.25 mcg PO Q48H isosorbide mononitrate 60 mg tablet extended release 24 hr 60 mg PO DAILY warfarin 5 mg tablet 2.5 mg PO DAILY nitroglycerin 0.4 mg tablet, sublingual 0.4 mg sublingual Q5M PRN (Reason: Chest Pain) pravastatin 80 mg tablet 80 mg PO DAILY albuterol sulfate 90 mcg/actuation HFA aerosol inhaler 2 puff inhalation Q4-6H PRN (Reason: Wheezing) aspirin [Adult Aspirin Regimen] 81 mg tablet,delayed release (DR/EC) 81 mg PO DAILY melatonin 10 mg capsule 10 mg PO BEDTIME PRN (Reason: Insomnia) mirtazapine 45 mg tablet 45 mg PO BEDTIME ropinirole 0.25 mg tablet 0.25 mg PO BEDTIME Discharge Orders: Discharge Order (Routine); Ordered 05/12/23 Ordered By: Darell Christian Diet: Advance to usual diet Activity on Discharge: As tolerated Stand Alone Forms: Patient Portal Discharge page Care Plan Goals: Oxycodone as needed for pain Health Concerns: Physical therapy as per receiving facility Plan of Treatment: Rehab with goal to return home Assessment: See discharge summary
--- NOTE | 2023-05-12 13:22 | MHC.CM.PN ---
PT WILL DC TO [facility] FOR STR TODAY [facility]IA [facility] AT 1400 HOURS IMM DELIVERED
== END 2023-05-12 14:22 | DRG 183 ==
LOC: HO.ED 16:06 → HO.EDOVER 20:21 → HO.S3 05-09 13:29
PROVIDERS: Internal Medicine; Physician Assistant; Admitting Provider Physician Assistant; Emergency Provider Emergency Medicine; PCP Internal Medicine; Visit Provider Hospitalist
DX: S22.41XA Multiple fractures of ribs, right side, initial encounter for closed fracture (principal); J96.01 Acute respiratory failure with hypoxia; W19.XXXA Unspecified fall, initial encounter; E78.00 Pure hypercholesterolemia, unspecified; R50.9 Fever, unspecified; N39.41 Urge incontinence; I48.0 Paroxysmal atrial fibrillation; I10 Essential (primary) hypertension; Z20.822 Contact with and (suspected) exposure to COVID-19; Z91.041 Radiographic dye allergy status; Z79.01 Long term (current) use of anticoagulants; Z79.899 Other long term (current) drug therapy
CPT/HCPCS: 36415; 70450; 71045; 71101; 71250; 72125; 73110; 73120; 73130; 74176; 80048; 80053; 80202; 81003; 82565; 83605; 84484; 85025; 85610; 87040; 87635; 93005; 97110; 97116; 97162; 99221; 99285; J2270; J2543; J3370

== ENCOUNTER → 2023-05-09 11:00 | Outpatient (BNV) | payer MEDICARE, BC, SELFPAY | PROVIDERS: Admitting Provider Physician Assistant; Emergency Provider Emergency Medicine; PCP Internal Medicine; Visit Provider Hospitalist | DX: J96.01 Acute respiratory failure with hypoxia (principal); S22.49XA Multiple fractures of ribs, unspecified side, initial encounter for closed fracture | CPT/HCPCS: 99223; 99233; 99239; 99499 ==

== ENCOUNTER 2024-04-23 21:25 | Emergency (ER) | payer MEDICARE, BC, SELFPAY ==
[2024-04-23 21:35] VITALS: BP 182/95; PULSE 59; RESP 18; TEMP 36.3; O2SAT 97; BMI 25.1
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
[2024-04-24] MEDS: Bacitracin Oint 0.9 GM PACKET 1 APPL TOPICAL (00:08)
[2024-04-24 00:12] VITALS: BP 0/0; PULSE 0; RESP 0; TEMP -17.7; TEMP 0; O2SAT 0
== END 2024-04-24 00:13 | disposition home or self-care (01) ==
PROVIDERS: Emergency Provider Emergency Medicine; PCP Internal Medicine
DX: M79.632 Pain in left forearm (principal); T22.112A Burn of first degree of left forearm, initial encounter; T31.0 Burns involving less than 10% of body surface; X12.XXXA Contact with other hot fluids, initial encounter; Y93.89 Activity, other specified; Y92.89 Other specified places as the place of occurrence of the external cause; Y99.8 Other external cause status
CPT/HCPCS: 99282; 99283

== ENCOUNTER 2025-09-02 18:56 | Emergency (ER) | payer MEDICARE, BC, SELFPAY ==
--- OUTSIDE RECORDS SUMMARY | 2025-08-17 11:35 | XMS_ITS | Encounter Summary ---
Author Organization [facility] Address [address] [place] [address] Care Team Providers Care Trade Marker Name Role Phone Nichole Pantoja MD Primary Care Provider Encounter Details Date Type Department Care Team (Latest Contact Info) Description 08/17/2025 11:35 AM EST Clinical Support Coumadin [address] [phone] TIA (transient ischemic attack) (Primary Dx); Paroxysmal atrial flutter (CMS/HCC V24, CMS/HCC V28); Paroxysmal atrial fibrillation (CMS/HCC V24, CMS/HCC V28); Personal history of DVT (deep vein thrombosis); risk intern (current) use of anticoagulants Social History Tobacco Use Types Packs/Day Years Used Date Smoking Tobacco: Former Passive Smoke Exposure: Past Smokeless Tobacco: Never Alcohol Use Standard Drinks/Week Comments Not Currently 0 (1 standard drink = 0.6 oz pur e alcohol) not for 2 months Interpersonal Safety Answer Date Record ed Physical Abuse Unrecognized value 06/22/2025 Verbal Abuse Unrecognized value 06/22/2025 Comments No Sex and Gender Information Value Date Recorded Sex Assigned at Female 09/22/2024 6:31 PM EST Legal Sex Female 4:41 AM EST Gender Identity Female 09/22/2024 6:31 PM EST Sexual Orientation Straight 09/22/2024 6: 31 PM EST documented as of this encounter Progress Notes * Trang Washington LPN - 08/17/2025 11:35 AM EST Images from the original note were not included. Anticoagulation Summary As of 08/17/2025 INR goal: 2.0-3.0 TTR: 43.6% (1 y) INR used for dosin.8 (08/17/2025) Warfarin maintenance plan: 0 mg every Mon, Tue; 2.5 mg (5 mg x 0.5) every Sun, Sun; 5 mg (5 mg x 1)all other days Weekly warfarin total: 20 mg Plan last modified: Trang Washington LPN (08/17/2025) Next INR check: 08/20/2025 Priority: Critical Target end date: Indefinite Indications TIA (transient ischemic attack) [G45.9] Paroxysmal atrial flutter (CMS/HCC V24 CMS/HCC V28) [I48.92] Paroxysmal atrial fibrillation (CMS/HCC V24 CMS/HCC V28) [I48.0] Personal history of DVT (deep vein thrombosis) [Z86.718] detention (current) use of anticoagulants [Z79.01] Anticoagulation Episode Summary INR check location: Anticoagulation Clinic Preferred lab: -- Send INR reminders to: [facility] ANTICOAGULATION HESSEL Comments: -- Anticoagulation Care Providers Provider Role Specialty Phone number Nichole Pantoja MD Internal Medicine [phone] Patient presents for follow-up of ongoing Warfarin therapy. Patient had her INR drawn via A/C Clinic Draw. Patient denies any significant issues with adherence to the medication regimen. Patient denies experiencing any symptoms of bleeding, such as unusual bruising, nosebleeds, hematuria, or melena. Patient reports feeling generally well and denies any new complaints. Plan of care: New warfarin dose: Hold 2 doses Warfarin education of dietary considerations, medication/supplement interactions, and the need to continue avoiding activities that increase the risk of injury or bleeding reinforced. Patient verbalized understanding of ongoing INR monitoring and dosage change. Patient is aware of the signs of potential complications and knows to contact the clinic if they occur. Anticoagulation Flowsheet updated with new plan of care. Plan discussed with provider, no additional changes at this time. Anticoagulation Clinic Protocol Dose Type Dose Range INR Dose Adjustment # Doses Omitted Recheck Date Mini Dose 1.4-2.0 Very Low <1.2 Consult Provider 0 1 week Low 1.2-1.4 If singular event - no change If 2 in a row or 2 of the last 3 - Increase weekly dose by 10% 0 1 week In Range 1.4-2.0 No adjustment 0 1-4 weeks* High 2.0-3.0 If singular event - no change If 2 in a row or 2 of the last 3 - Decrease weekly dose by 10% 0 1 week Very High >3.0 Consult Provider 2 2 days If OK after 2 days - Decrease weekly dose by 10% 0 1 week Usual Dose 2.0-3.0 Very Low <1.5 Consult Provider 0 1 week Low 1.5-2.0 If singular event - No change If 2 in a row or 2 of the last 3 - Increase weekly dose by 10% 0 1 week In Range 2.0-3.0 No Adjustment 0 1-4 weeks* High >3.0-3.5 If singular event - No change If 2 in a row or 2 of the last 3 - Decrease weekly dose by 10% 0 1 week Very High >3.5-4.0 Consult Provider 1 2 days >4.0 Consult Provider 2 2 days If OK after 2 days - Decrease weekly dose by 10% 0 1 week Mechanical Valve 2.5-3.5 Very Low <1.5 Consult Provider 0 1 week Low 1.5-2.5 If singular event - No change If 2 in a row or 2 of the last 3 - Increase weekly dose by 10% 0 1 week In Range 2.5-3.5 No Adjustment 0 1-4 weeks* High >3.5-4.0 If singular event - No change If 2 in a row or 2 of the last 3 - Decrease weekly dose by 10% 0 1 week Very High >4.0-4.9 Consult Provider 1 2 days >5.0 Consult Provider 2 2 days If OK after 2 days - Decrease weekly dose by 10% 0 1 week * In range 1 week = recheck in 1 week In range 2 weeks = recheck in 2 weeks In range 3 weeks = recheck in 3 weeks In range 4 weeks = recheck in 4 weeks Cosigned by Nichole Pantoja MD at 08/17/2025 1:08 PM EST documented in this encounter Plan of Treatment Upcoming Encounters Date Type Department Care Team (Late st Contact Info) Description 09/03/2025 2:30 PM EST Clinical Support Coumadin Clinic [address] [phone] 09/22/2025 1:50 PM EST Office Visit Pulmonology - [place] [address] [place] [phone] Merle Holden, DOMINIC [address] [place] [phone] 01/13/2026 2:15 PM EDT Office Visit Nephrology [address] [phone] Errol Diaz MD [address] [place] [address] documented as of this encounter Procedures Procedure Name Priority Date/Time Associated Diagnosis Comments POC PROTIME INR BLOOD Routine 08/17/2025 11:44 AM EST TIA (transient ischemic attack) Paroxysmal atrial flutter (CMS/HCC V24, CMS/HCC V28) Paroxysmal atrial fibrillation (CMS/HCC V24, CMS/HCC V28) Personal history of DVT (deep vein thrombosis) risk intern (current) use of anticoagulants documented in this encounter Results * POC Protime INR Blood (08/17/2025 11:44 AM EST) Lot Number INR POC 6.8 Prothrombin Time POC Exp Date Blood 08/17/2025 11:4 4 AM EST Nichole Pantoja MD POINT OF CARE TEST ENTER/EDIT OR DERABLES Final Result documented in this encounter Visit Diagnoses Diagnosis TIA (transient ischemic attack)- Primary Unspecified transient cerebral ischemia Paroxysmal atrial flutter (CMS/[facility] V24, CMS/[facility] V28) Paroxysmal atrial fibrillation (CMS/HCC V24, CMS/HCC V28) Atrial fibrillation Personal history of DVT (deep vein thrombosis) Personal history of venous thrombosis and embolism risk intern (current) use of anticoagulants Long-term (current) use of anticoagulants documented in this encounter Care Teams Trade Marker Relationship Specialty Start Date End Date Nichole Pantoja MD [address] [place] [id number] PCP - General Internal Medicine 02/03/21 documented as of this encounter
--- OUTSIDE RECORDS SUMMARY | 2025-08-26 13:30 | XMS_ITS | Encounter Summary ---
Author Organization [facility] Address [address] [place] [address] Care Team Providers Care Scrap Separator Name Role Phone Nichole Pantoja MD Primary Care Provider [phone] Reason for Visit * Reason Comments Anticoagulation Encounter Details Date Type Department Care Team (Latest Contact Info) Description 08/26/2025 1:30 PM EST Clinical Support Coumadin [address] [phone] TIA (transient ischemic attack) (Primary Dx); Paroxysmal atrial flutter (CMS/HCC V24, CMS/HCC V28); Paroxysmal atrial fibrillation (CMS/HCC V24, CMS/HCC V28); Personal history of DVT (deep vein thrombosis); refrigeration lead (current) use of anticoagulants Social History Tobacco [...] Progress Notes * Trang Washington LPN - 08/26/2025 1:30 PM EST Images from the original note were not included. Anticoagulation Summary As of 08/26/2025 INR goal: 2.0-3.0 TTR: 42.6% (1.1 y) INR used for dosin.1 (08/26/2025) Warfarin maintenance plan: 0 mg every Wed; 5 mg (5 mg x 1) every e, [place], Sat; 2.5 mg (5 mg x 0.5)all other days Weekly warfarin total: 22.5 mg Plan last modified: Trang Washington LPN (08/26/2025) Next INR check: 09/01/2025 Priority: Critical Target end date: Indefinite Indications TIA (transient ischemic attack) [G45.9] Paroxysmal atrial flutter (CMS/HCC V24 CMS/HCC V28) [I48.92] Paroxysmal atrial fibrillation (CMS/HCC V24 CMS/HCC V28) [I48.0] Personal history of DVT (deep vein thrombosis) [Z86.718] correction (current) use of anticoagulants [Z79.01] Anticoagulation Episode Summary INR check location: Anticoagulation Clinic Preferred lab: -- Send INR reminders to: [facility] Comments: -- Anticoagulation Care Providers Provider Role Specialty Phone number Nichole Pantoja MD Internal Medicine [phone] Patient presents for follow-up of ongoing Warfarin therapy. Patient had her INR drawn via A/C Clinic Draw. Patient denies any significant issues with adherence to the medication regimen. Patient denies experiencing any symptoms of bleeding, such as unusual bruising, nosebleeds, hematuria, or melena. Patient reports feeling generally well and denies any new complaints. Plan of care: INR is again elevated. She denies alcohol intake. Denies s/s of bleeding. Will hold coumadin tonight and reduce overall dose. Recheck INR on 09/01. New warfarin dose: Hold 1 doses Warfarin education of dietary considerations, medication/supplement [...] weeks Cosigned by Nichole Pantoja MD at 08/28/2025 7:03 AM EST documented in this encounter Plan of Treatment Upcoming Encounters Date Type Department Care Team (Late st Contact Info) Description 09/03/2025 2:30 PM EST Clinical Support Coumadin Clinic - [address] [phone] 09/22/2025 1:50 PM EST Office Visit Pulmonology - [address] [place] [address] eMrle Holden, DOMINIC [address] [place] [phone] 01/13/2026 2:15 PM EDT Office Visit Nephrology - [address] [phone] Errol Diaz MD [address] [facility] [address] [place] [address] documented as of this encounter Procedures Procedure Name Priority Date/Time Associated Diagnosis Comments POC PROTIME INR BLOOD Routine 08/26/2025 1:43 PM EST TIA (transient ischemic attack) Paroxysmal atrial flutter (CMS/HCC V24, CMS/HCC V28) Paroxysmal atrial fibrillation (CMS/HCC V24, CMS/HCC V28) Personal history of DVT (deep vein thrombosis) correction (current) use of anticoagulants documented in this encounter Results * POC Protime INR Blood (08/26/2025 1:43 PM EST) Lot Number INR POC 4.1 Prothrombin Time POC Exp Date Blood 08/26/2025 1:43 PM EST Nichole Pantoja MD POINT OF CARE TEST ENTER/EDIT OR DERABLES Final Result documented in this encounter Visit Diagnoses Diagnosis TIA (transient ischemic attack)- Primary Unspecified transient cerebral ischemia Paroxysmal atrial flutter (CMS/HCC V24, CMS/HCC V28) Paroxysmal atrial fibrillation (CMS/HCC V24, CMS/HCC V28) Atrial fibrillation Personal history of DVT (deep vein thrombosis) Personal history of venous thrombosis and embolism refrigeration lead (current) use of anticoagulants Long-term (current) use of anticoagulants documented in this encounter Care Teams Scrap Separator Relationship Specialty Start Date End Date Nichole Pantoja MD [address] [place] [address] PCP - General Internal Medicine 02/03/21 documented as of this encounter
--- NOTE | ~2025-09-02 | XR_ITS ---
CLINICAL HISTORY: fall, pain 4 views left knee Comparison: None Findings: No fractures or dislocations. No joint effusion. Faint chondrocalcinosis is present. Slight medial compartment spurring is present. No radiopaque foreign body. Impression: 1. No fracture or dislocation. This document has been electronically signed by: Liborio France MD on 09/02/2025 19:39:43
--- NOTE | ~2025-09-02 | CT_ITS ---
CLINICAL HISTORY: fall with head strike, on thinners CT head without contrast Comparison: 05/08/2023 Findings: No intracranial mass, midline shift, hydrocephalus, or acute hemorrhage. No CT evidence of acute ischemia. 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 Visualized paranasal sinuses and mastoid air cells normal. Orbits unremarkable. No skull fracture Impression: 1. No acute intracranial abnormalities. This document has been electronically signed by: Liborio France MD on 09/02/2025 20:20:55
--- NOTE | ~2025-09-02 | CT_ITS ---
CLINICAL HISTORY: fall with head strike, on thinners CT cervical spine without contrast Comparison: 05/08/2023 Findings: Normal limited view of the intracranial contents. Soft tissues of the neck are normal. Lung apices are normal. Normal vertebral body alignment. No fractures or dislocations. 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 Impression: 1. No cervical vertebral fracture or traumatic malalignment. This document has been electronically signed by: Liborio France MD on 09/02/2025 20:22:11
--- OUTSIDE RECORDS SUMMARY | 2025-09-02 17:10 | XMS_ITS | Encounter Summary ---
Author Organization [facility] [place] [address] Care Team Providers Care Soft Metals Engraver Hand Name Role Phone Nichole Pantoja MD Primary Care Provider [phone] Encounter Details Date Type Department Care Team (Late Contact Info) Description 09/02/2025 5:10 PM EST Hospital Encounter [facility] [address] [place] [phone] Arrived Social History Tobacco Use Types Packs/Day Years [...] PM EST documented as of this encounter Plan of Treatment Upcoming Encounters Date Type Department Care Team (Late Contact Info) Description 09/03/2025 2:30 PM EST Clinical Support Coumadin [address] [phone] 09/22/2025 1:50 PM EST Office Visit Pulmonology - [place] [address] [place] [phone] Merle Holden NP [address] [place] [phone] 01/13/2026 2:15 PM EDT Office Visit Nephrology [address] [phone] Errol Diaz MD [address] [place] [address] documented as of this encounter Procedures Procedure Name Priority Date/Time Associated Diagnosis Comments XR KNEE 4+ VIEWS LEFT STAT 09/02/2025 5:25 PM EST Injury of left knee, initial encounter documented in this encounter Results * XR Knee 4+ Views Left (09/02/2025 5:25 PM EST) Anatomical Region Laterality Modality Lower Extremities, Knee Left Radiogra phic Imaging 09/02/2025 6:17 PM EST Impressions 09/02/2025 6:19 PM EST Chondrocalcinosis. Mild osteoarthritis. No acute findings. -------- FINAL REPORT -------- Dictated By: Shannan Harris Dictated Date: 09/02/2025 18:17 ET Assigned Physician: Shannan Harris Reviewed and Electronically Signed By: Shannan Harris Signed Date: 09/02/2025 18:19 ET Workstation ID: [id number] Transcribed By: Self Edit Transcribed Date: 09/02/2025 18:17 ET Narrative 09/02/2025 6:19 PM EST LEFT KNEE VIEWS: 4. HISTORY: Status post fall 2 days. On Coumadin with knee pain and swelling. FINDINGS: There is mild spurring about all 3 compartments. No fracture or malalignment is seen. There is calcification of the menisci. The left patella is normally positioned on the Merchant view. No joint effusion is seen. There is advanced atherosclerosis. Procedure Note Shannan Harris MD - 09/02/2025 LEFT KNEE VIEWS: 4. HISTORY: Status post fall 2 days. On Coumadin with knee pain andswelling. FINDINGS: There is mild spurring about all 3 compartments. No fracture or malalignment is seen. There is calcification of the menisci. The left patella is normally positioned on the Merchant view. No jointeffusion is seen. There is advanced atherosclerosis. IMPRESSION: Chondrocalcinosis. Mild osteoarthritis. No acute findings. -------- FINAL REPORT -------- Dictated By: Shannan Harris Dictated Date: 09/02/2025 18:17 ET Assigned Physician: Shannan Harris Reviewed and Electronically Signed By: Shannan Harris Signed Date: 09/02/2025 18:19 ET Workstation ID: [id number] Transcribed By: Self Edit Transcribed Date: 09/02/2025 18:17 ET Jatin Hankins [employer] TE[employer]ER IMG XR PROCEDURES Final Resul t documented in this encounter Visit Diagnoses Not on filedocumented in this encounter Care Teams Soft Metals Engraver Hand Relationship Specialty Start Date End Date Nichole Pantoja MD [address] [place] [phone] PCP - General Internal Medicine 02/03/21 documented as of this encounter
--- OUTSIDE RECORDS SUMMARY | 2025-09-02 17:15 | XMS_ITS | Encounter Summary ---
Author Organization [employer] Address [address] [place] [address] Care Team Providers Care Business Machine Operator Name Role Phone Nichole Pantoja MD Primary Care Provider [phone] Reason for Visit * Reason Comments Knee Pain Pt fell hurt left kn ee Encounter Details Date Type Department Care Team (Late st Contact Info) Description 09/02/2025 5:15 PM EST Office Visit Walk-In Clinic - [facility] [address] [place] [address] Jatin Hankins, DOMINIC [address], [place] [phone] Injury of left knee, initial encounter (Primary Dx) Social History Tobacco Use Types Packs/Day Years [...] PM EST documented as of this encounter Last Filed Vital Signs Vital Sign Reading Time Taken Comments Blood Pressure 119/49 09/02/2025 5:04 PM EST Pulse 80 09/02/2025 5:04 PM EST Temperature 36.6 C (97.8 F) 09/02/2025 5:04 PM EST Respiratory Rate - - Oxygen Saturation 97% 09/02/2025 5:04 PM EST Inhaled Oxygen Concentration - - Weight - - Height - - Body Mass Index - - documented in this encounter Progress Notes * Jatin Hankins NP - 09/02/2025 5:15 PM EST CHIEF COMPLAINT: Knee Pain (Pt fell hurt left knee) HPI: Trang Haynes is a 85 y.o. female who presents to our clinic today today with complaints of pain to the left knee for 2 day(s). Patient reports injury after falling off 2 stairs in the kitchen landing on her back. However patient states that she has severe left knee pain of note she is on Coumadin. She denies any head injury, LOC or other injuries. She has a history of DVTs, heart failure with preserved EF, bradycardia proximal a trivial fibrillation, DAISY CKD stage III, previous CA, hypertension ROS: 12 point review of symptoms unremarkable except for those idenitified in the HPI. 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 07/28/2024 Leukopenia 07/03/2024 Anxiety state 03/18/2024 Osteopenia 07/09/2023 Thyroid nodule 02/22/2023 Urinary incontinence 05/26/2022 Heart failure with preserved ejection fraction ([facility] V24, [facility] V28) 12/21/2021 Bradycardia 11/23/2021 Paroxysmal atrial flutter ([facility] V24, [facility] V28) 11/15/2021 CHF (congestive heart failure) ([facility] V24, [facility] V28) 11/15/2021 Paroxysmal atrial fibrillation ([facility] V24, [facility] V28) 12/08/2020 Umbilical hernia, incarcerated 03/16/2020 DAISY (obstructive sleep apnea) 03/08/2020 Large hiatal hernia 10/20/2019 Diverticulitis large intestine w/o perforation or abscess w/o bleeding 10/20/2019 Gallstones 10/20/2019 Renal cyst 07/04/2019 Mild episode of recurrent major depressive disorder [place] 06/18/2019 Other chronic pain 04/08/2018 Emphysema lung ([facility], [facility]) 04/23/2017 Atypical lymphocytosis 03/14/2017 Hoarding behavior 04/21/2014 Hypertrophic obstructive cardiomyopathy ([facility], [facility]28) 01/07/2014 TIA (transient ischemic attack) 10/31/2012 Multiple rib fractures 05/15/2012 CKD (chronic kidney disease) stage 3, GFR 30-59 ml/min ([facility], [facility]28) 01/30/2012 IBS (irritable bowel syndrome) 06/07/2011 Restless legs syndrome (RLS) 01/25/2007 Anemia 08/22/2005 Old CA (myocardial infarction) 08/14/2005 Obesity 08/14/2005 Essential hypertension 08/14/2005 Hypercholesterolemia 08/14/2005 SURGICAL HISTORY: Surgical History[1] SOCIAL HISTORY: Social History Tobacco Use Smoking status: Former Passive exposure: Past Smokeless tobacco: Never Substance Use Topics Alcohol use: Not Currently Comment: not for 2 months FAMILY HISTORY: Family History[2] She indicated that her mother is . She indicated that her father is . She indicatedthat the status of her sister is unknown. She indicated that the status of her son is unknown. She indicated that the status of her neg hx is unknown. MEDICATIONS DISCONTINUED/REORDERED: There are no discontinued medications. ACTIVE MEDICATIONS: Medications Taking[3] ALLERGIES: Allergies[4] PHYSICAL EXAM: Vitals: 09/02/25 1704 BP: (!) 119/49 Pulse: 80 Temp: 36.6 ??C (97.8 ??F) SpO2: 97% APPEARANCE: alert, well appearing, and in no distress NEURO: alert, oriented, normal speech, no focal findings or movement disorder noted HEART: normal rate, regular rhythm, normal S1, S2, no murmurs, rubs, clicks or gallops LUNG: clear to auscultation, no wheezes or rales, and unlabored breathing BACK: Patient sitting in wheelchair ambulated to office and walker. Appears very unsteady EXTREMITIES: no cyanosis palpable tenderness to the left patella with surrounding edema no erythemanoted. Positive CMS less than 3-second capillary refill able to bend and extend the knee endorsing some pain. Unable to stand without assistance. Unsteady on her feet using a walker. No palpable hematoma Under my examination patient is very unsteady while standing with walker and the inability for her to stand from sitting position without assistance. LABS/IMAGIN+ left knee-independent review view showing no acute abnormalities some patellar spurring is visualized. As well as swelling of the soft tissue noted. *-Pending official read from the radiologist*- IMPRESSION: ICD-10-CM ICD-9-CM 1. Injury of left knee, initial encounter S89.92XA 959.7 XR Knee 4+ Views Left PLAN: The patient's PMH, problem list and medications were reviewed in reference to the above diagnosis/diagnoses. Based on review of symptoms, HPI and physical examination, Based on ROS, HPI, and PE, suggestive of acute left knee pain Discussed causes in depth. At this time I believe that the patient would benefit from acute rehab as she is very unsteady on her feet and I feel it would be unsafe for her to go home as she has very high risk for falling. Given especially that she is on warfarin. Patient agreeable with plan I stated an ambulance ride over to hospital for physical therapy evaluation and potential acute rehab for strengthening however disagreed stating that he would take her to the hospital. A AGAINST MEDICAL ADVICE form was signed patient will self present to [facility] for evaluation. Patient understands the risks of self presenting without the use of an ambulance to safely bring patient to the hospital for evaluation. As reviewed in the AMA form. I do believe that this patient is at very high risk for falls. And should be evaluated for rehab. Patient to follow-up with PCP within 10 to 14 days. Patient self presenting to [facility] forevaluation Patient understands the plan. Patient verbalizes agreement with the plan. Orders Placed This Encounter Procedures XR Knee 4+ Views Left In what REGION should this be scheduled?: [facility] [[id number]] Release to patient: Immediate [1] Jatin Hankins NP on 09/02/2025 5:09 PM EST Today's documentation was made using voice recognition software. This note may contain grammatical errors secondary to this software. [1] Past Surgical History: Procedure Laterality Date APPENDECTOMY CARDIAC ELECTROPHYSIOLOGY STUDY AND ABLATION 2023 CATARACT EXTRACTION PROCEDURE: HISTORICAL CATARACT REMOVAL; COMMENT: bilat COLONOSCOPY 11/18/2001 PROCEDURE: HISTORICAL COLONOSCOPY; COMMENT: Normal COLONOSCOPY 02/15/2012 PROCEDURE: HISTORICAL COLONOSCOPY; COMMENT: 1 cm polyp at 25 cm: tubular adenoma. COLONOSCOPY 01/11/2021 PROCEDURE: HISTORICAL COLONOSCOPY; COMMENT: Diverticulosis, no polyps, no inflammation. No colon cancer screening indicated for 10 years. ESOPHAGOGASTRODUODENOSCOPY 01/11/2021 PROCEDURE: PA EGD TRANSORAL BIOPSY SINGLE/MULTIPLE; COMMENT: Solitary small duodenal erosion; largehiatal hernia; gastric biopsies: Minimal reactive gastropathy, no inflammation. HIP ARTHROPLASTY Left 10/2024 HYSTERECTOMY KNEE SURGERY Left 11/13/2011 PROCEDURE: HISTORICAL KNEE SURGERY; COMMENT: Dr. Car - left knee arthroscopic medial meniscectomy ORIF ANKLE FRACTURE Left 1999 [employer] OTHER SURGICAL HISTORY PROCEDURE: PA RADIAL KERATOTOMY; COMMENT: bilateral ROTATOR CUFF REPAIR PROCEDURE: HISTORICAL ROTATOR CUFF REPAIR TONSILLECTOMY ADENOIDECTOMY, BILATERAL MYRINGOTOMY AND TUBES PROCEDURE: PA TONSILLECTOMY & ADENOIDECTOMY <AGE 14 UPPER GASTROINTESTINAL ENDOSCOPY 11/18/2001 PROCEDURE: PA UPPER GI ENDOSCOPY PERFORMED; COMMENT: normal [2] Family History Problem Relation Name Age of Onset Leukemia Mother Cervical cancer Sister 35 or uterine, uncertain Kidney cancer Son and lung Blindness Neg Hx Cataracts Neg Hx Glaucoma Neg Hx Macular degeneration Neg Hx Strabismus Neg Hx Colon cancer Neg Hx Breast cancer Neg Hx [3] Outpatient Medications Marked as Taking for the 09/02/25 encounter (Office Visit) with Jatin Hankins NP Medication Sig Dispense Refill acetaminophen (TYLENOL 8 HOUR) 650 mg 8 hr tablet Take 1,000 mg by mouth every 8 (eight) hours if needed for mild pain. Do not crush, chew, or split. aspirin 81 mg EC tablet Take 1 tablet (81 mg total) by mouth 1 (one) time each day. 90 tablet 1 buPROPion SR (WELLBUTRIN SR) 150 mg 12 hr tablet Take 1 tablet (150 mg total) by mouth 1 (one) timeeach day in the morning. Do not crush, chew, or split. 90 tablet 1 calcitrioL (ROCALTROL) 0.25 mcg capsule Take 1 capsule (0.25 mcg total) by mouth 1 (one) time each day. 90 capsule 1 cephalexin (KEFTAB) 500 mg tablet cetirizine (ZyrTEC) 10 mg tablet Take 1 Tablet by mouth daily. cyanocobalamin (VITAMIN B-12) 1,000 mcg tablet Take 1,000 mcg by mouth daily. fluticasone propionate (FLONASE) 50 mcg/actuation nasal spray 2 SPRAYS TO EACH NOSTRIL ONCE A DAY SHAKE GENTLY BEFORE USING gabapentin (NEURONTIN) 300 mg capsule Take 1 capsule (300 mg total) by mouth 1 (one) time each day.90 capsule 1 isosorbide mononitrate (IMDUR) 60 mg 24 hr tablet Take 1 tablet (60 mg total) by mouth 1 (one) timeeach day in the morning. 90 tablet 1 melatonin 10 mg capsule Take 1 tablet by mouth daily. evening metoprolol tartrate (LOPRESSOR) 25 mg tablet Take 0.5 tablets (12.5 mg total) by mouth 2 (two) times a day. 90 each 1 mirtazapine (REMERON) 45 mg tablet Take 1 tablet (45 mg total) by mouth at bedtime. at bedtime. 90 tablet 1 nitroglycerin (NITROSTAT) 0.4 mg SL tablet Take 1 tablet (0.4 mg total) by mouth every 5 (five) minutes if needed for chest pain. 25 tablet 3 pravastatin (PRAVACHOL) 80 mg tablet Take 1 tablet (80 mg total) by mouth at bedtime. at bedtime. 90 tablet 1 rOPINIRole (REQUIP) 0.25 mg tablet Take 1 tablet (0.25 mg total) by mouth at bedtime. at bedtime. 90 tablet 1 torsemide (DEMADEX) 20 mg tablet Take 1 tablet (20 mg total) by mouth every other day. 45 tablet 3 warfarin (COUMADIN) 5 mg tablet Take 1 tablet (5 mg total) by mouth 1 (one) time each day. [4] Allergies Allergen Reactions Ciprofloxacin Itraconazole Hives Metronidazole Other Hives Ivp Dye [Iv Contrast Dye] Sulfamethoxazole-Trimethoprim Hives documented in this encounter Plan of Treatment Upcoming Encounters Date Type Department Care Team (Late st Contact Info) Description 09/03/2025 2:30 PM EST Clinical Support [facility] [address] [place] [address] 09/22/2025 1:50 PM EST Office Visit Pul[facility]ology - [facility] [address] [place] [id number] Merle Holden, DOMINIC [address] [place] [address] 01/13/2026 2:15 PM EDT Office Visit Nephrology - [facility] [address] [place] [address] Errol Diaz MD [address] [place] [phone] documented as of this encounter Procedures Procedure [...] Dictated Date: 09/02/2025 18:17 ET Assigned Physician: Sahnnan Harris Reviewed and Electronically Signed By: Shannan Harris Signed Date: 09/02/2025 18:19 ET Workstation ID: [id number] Transcribed By: Self Edit Transcribed Date: 09/02/2025 [...] Signed Date: 09/02/2025 18:19 ET Workstation ID: [id number] Transcribed By: Self Edit Transcribed Date: 09/02/2025 18:17 ET Jatin Hankins HEAD TURBINE OPERATOR IMG XR PROCEDURES Final Resul t documented in this encounter Visit Diagnoses Diagnosis Injury of left knee, initial encounter- Primary documented in this encounter Care Teams Business Machine Operator Relationship Specialty Start Date End Date Nichole Pantoja MD [address] [place] [address] PCP - General Internal Medicine 02/03/21 documented as of this encounter
--- NOTE | 2025-09-02 19:03 | ED.GENADULT ---
HPI - General Adult General Chief complaint: Fall Stated complaint: left knee numbness, back pain, head injury (fall) Time Seen by Provider: 09/02/25 21:44 Source: patient, RN notes reviewed and old records reviewed Mode of arrival: ambulatory Limitations: no limitations History of Present Illness ED Provider: Oliver HPI narrative: 85-year-old female presents for evaluation of a fall. The patient reports that she fell 2 days ago when her left knee gave out. She is on Coumadin for history of AFib. She followed up with the primary doctor today who referred her to the ED due to the fall while being on Coumadin The patient complains of some left knee pain but otherwise denies any headache or neck pain Denies any dizziness, lightheadedness, chest pain, palpitations, shortness of breath prior to her fall She feels as though she fell because her left knee give out Denies any nausea vomiting, visual changes She is interested in going to physical therapy at [facility] in [place] She reports that she does not want to go to rehab facility because she had a bad experience last year where she ended up catching influenza and COVID Related Data Home Medications ?Medication ?Instructions ?Recorded ?Confirmed bupropion HCl 150 mg tablet,12 hr 150 mg PO DAILY 09/16/21 05/08/23 sustained-release calcitriol 0.25 mcg capsule 0.25 mcg PO Q48H 09/16/21 05/08/23 fluticasone propionate 50 2 spray intranasal DAILY 09/16/21 05/08/23 mcg/actuation nasal spray,suspension isosorbide mononitrate 60 mg 60 mg PO DAILY 09/16/21 05/08/23 tablet,extended release 24 hr nitroglycerin 0.4 mg sublingual 0.4 mg sublingual Q5M PRN Chest 09/16/21 05/08/23 tablet Pain oxybutynin chloride 15 mg 15 mg PO DAILY 09/16/21 05/08/23 tablet,extended release 24 hr pravastatin 80 mg tablet 80 mg PO DAILY 09/16/21 05/08/23 torsemide 20 mg tablet 20 mg PO Q48H 09/16/21 05/08/23 warfarin 5 mg tablet 2.5 mg PO DAILY 09/16/21 05/08/23 albuterol sulfate 90 mcg/actuation 2 puff inhalation Q4-6H PRN 07/24/22 05/08/23 aerosol inhaler Wheezing aspirin 81 mg tablet,delayed 81 mg PO DAILY 07/24/22 05/08/23 release (Adult Aspirin Regimen) melatonin 10 mg capsule 10 mg PO BEDTIME PRN Insomnia 07/24/22 05/08/23 mirtazapine 45 mg tablet 45 mg PO BEDTIME 07/24/22 05/08/23 ropinirole 0.25 mg tablet 0.25 mg PO BEDTIME 07/24/22 05/08/23 cetirizine 10 mg tablet 10 mg PO DAILY 05/08/23 05/08/23 cyanocobalamin (vitamin B-12) 1,000 mcg PO DAILY 05/08/23 05/08/23 1,000 mcg tablet gabapentin 300 mg capsule 300 mg PO BEDTIME 05/08/23 05/08/23 glucosamine-chondroitin 1 tab PO BID 05/08/23 05/08/23 metoprolol tartrate 25 mg tablet 12.5 mg PO BID 05/08/23 05/08/23 Previous Rx's ?Medication ?Instructions ?Recorded oxycodone 5 mg tablet 5 mg PO Q4H PRN Pain, 05/12/23 Moderate(Pain Scale 4-6) #30 tabs bacitracin 500 unit/gram topical 1 appl topical BID #28 grams 04/23/24 ointment Allergies Allergy/AdvReac Type Severity Reaction Status Date / Time Iodinated Contrast Media AdvReac Hives Verified 09/02/25 19:05 itraconazole (From Sporanox) AdvReac hives Verified 09/02/25 19:05 metronidazole (From Flagyl) AdvReac Hives Verified 09/02/25 19:05 sulfamethoxazole (From AdvReac Hives Verified 09/02/25 19:05 Septra) trimethoprim (From Septra) AdvReac Hives Verified 09/02/25 19:05 Review of Systems Constitutional: Constitutional: Denies body ache(s), Denies chills, Denies fever(s) and Denies headache(s) Eyes: Eyes: Denies blurry vision ENT: Denies vertigo, Denies dizziness and Denies headache(s) Cardiovascular: Cardiovascular: Denies chest pain and Denies dyspnea on exertion Respiratory: Respiratory: Denies cough and Denies dyspnea on exertion Gastrointestinal: Gastrointestinal: Denies abdominal pain, Denies nausea and Denies vomiting Musculoskeletal: Musculoskeletal: Reports arthralgias, Reports joint swelling and Reports limited range of motion Integumentary/Breasts: Skin/Breast: Denies rash Neurologic: Denies vertigo, Denies dizziness and Denies headache(s) [facility] Past Medical History Medical History Hiatal hernia Depression High cholesterol Afib HTN (hypertension) Social History Social History Household Members: Spouse Housing: House Do you presently have visiting nurse or other home services: No Patient Tobacco Use Status: Never used Tobacco Smoked in Last 30 Days: No Use of substances other than those prescribed or required for medical reasons: No Advance Directives: Yes Advance Directives on File: Yes Advance Directives Date on File: 05/09/23 service: No Physical Exam ED Vital Signs: Vital Signs - 24 hr 09/02/25 19:04 09/02/25 22:23 Temperature 98.4 F 97.8 F Pulse Rate 76 74 Respiratory Rate 16 18 Blood Pressure 143/77 H 188/89 H Pulse Oximetry 95 93 Oxygen Delivery Method Room Air Room Air BMI result Body Mass Index 24.4 Const General: healthy appearing, comfortable, no acute distress, alert and awake Nutritional Appearance: well nourished Orientation/consciousness: patient oriented x3 HENMT Head: Yes normocephalic and Yes atraumatic Eyes Eyelids: Yes eyelids normal Conjunctivae: conjunctivae normal Sclerae: sclerae normal Corneas: corneas normal Pupils: Equal, round and reactive pupils present EOM: EOMs intact bilaterally Neck Neck: Yes full ROM Resp Effort & Inspection: normal respiratory effort, able to speak in complete sentences, no audible wheezes and not labored Auscultation: clear to auscultation bilaterally Cardio Rate: regular rate Rhythm: regular rhythm GI Inspection: No distended Palpation (GI): Soft to palpation, not firm, nontender, no guarding and not rigid Skin General skin exam: elasticity normal Neuro General: patient oriented x3 Cranial nerves: Yes CN's II-XII intact bilaterally, Yes Equal, round and reactive pupils present and Yes Bilaterally intact EOM present Cognition (Neuro): normal cognition Extrem Other: Mild edema to the left knee with tenderness over the medial aspect. No wounds, no erythema, no increased warmth. The patient has full range of motion with the extension of the left knee but slightly reduced range of motion with flexion of the left knee Course Course Course Narrative: This is a rapid medical exam performed by Hanna San NP: Additional HPI, ROS, PE not included below will be deferred to primary provider. Patient is an 85y/o F on warfarin referred from urgent care for evaluation after a fall 2 days ago. States her knee buckled causing her to fall. Unsure of head strike, denies LOC, ended up on her back. was supposed to have inr checked yesteday. C/o L knee pain Plan: CT head and c-spine, knee xray labs Medical Decision Making Medical Decision Making [facility] Narrative: 85-year-old female presents for evaluation after a fall. She was referred here by her primary as she is on Coumadin, her fall was 2 days ago. She denies any headache or loss of consciousness. She does complain of left knee pain. She denies any prodrome of dizziness, lightheadedness, chest pain prior to her fall. Her EKG shows sinus tachycardia at 122 beats minute. Her vital signs are largely reassuring on arrival, she is mildly hypertensive to 143/77. She is afebrile. Her heart and 76 beats minute. Her labs are significant for a pancytopenia which appears consistent with her baseline. Her hemoglobin 11.0 today is slightly better than her most recent labs from April of 2023. Chemistries significant for a CO2 of 30 which is slightly elevated, a BUN of 21 and a creatinine of 1.44 which may be due to some degree of dehydration. These are both slightly elevated compared to her baseline. I discussed IV fluids the patient but the patient reports that she has not been having any vomiting or diarrhea and she is able to tolerate p.o.. She would prefer to drink fluids. Imaging did not show any traumatic injuries. She was offered physical therapy and case management evaluation. The patient is adamant she does not want to go to rehab. She would like to be referred to home PT which was performed Differential Diagnosis Differential Diagnoses: The differential diagnosis associated with the presentation includes Left knee pain Contusion Patellar fracture Knee dislocation Intracranial hemorrhage Lab Data [facility] Lab Attestation statement: I reviewed the patient's lab results. As above 09/02/25 19:43 09/02/25 19:43 Labs: Lab Results 09/02/25 Range/Units 19:43 WBC 3.5 L (4.8-10.8) X10*3/uL RBC 3.73 L (4.20-5.50) X10*6/uL Hgb 11.0 L (12.0-16.0) g/dl Hct 35.6 L (37.0-47.0) % MCV 95.4 (80.0-98.0) fL MCH 29.5 (27.0-33.0) pg MCHC 30.9 L (31.0-35.0) g/dl RDW 14.2 (11.0-16.0) % Plt Count 134 L (160-400) X10*3/uL MPV 12.1 (9.4-12.3) fL Immature Gran % (Auto) 0.6 H (0.0-0.4) % Neut % (Auto) 40.0 L (45-73) % Lymph % (Auto) 24.3 (20-40) % Coal % (Auto) 34.2 H (2-11) % Eos % (Auto) 0.6 (0-4) % Baso % (Auto) 0.3 (0-2) % Lymph # (Auto) 0.9 L (1.2-4.9) X10*3/uL Coal # (Auto) 1.2 (0.1-1.2) X10*3/uL Eos # (Auto) 0.0 (0.0-0.4) X10*3/uL Baso # (Auto) 0.0 (0.0-0.2) X10*3/uL Abs Immat Gran (auto) 0.02 (0.00-0.03) X10*3/uL Absolute Neuts (auto) 1.4 L (2.0-8.3) x10*3/uL Absolute Nucleated RBC 0.000 (0.0-0.012) X10*3/uL Nucleated RBC % (auto) 0.0 (0.0-0.2) /100WBC Smear Tech's Comments VERIFIED PT 33.5 H (11.2-13.5) SEC INR 2.8 H (0.9-1.1) APTT 48.7 H (26.7-34.1) SEC Sodium 144 (135-145) mmol/L Potassium 4.1 (3.3-5.1) mmol/L Chloride 105 (96-108) mmol/L Carbon Dioxide 30 H (22-29) mmol/L Anion Gap 13 (12-20) BUN 21 H (9-16) mg/dL Creatinine 1.44 H (0.5-1.4) mg/dL Estim Creat Clear Calc 30.9 Estimated GFR 35 Random Glucose 90 (60-115) mg/dL Calcium 10.6 H D (8.4-10.2) mg/dL Total Bilirubin 0.3 (0.0-1.0) mg/dL AST 26 (5-31) U/L ALT 23 (0-31) U/L Alkaline Phosphatase 78 (39-117) U/L Total Protein 7.0 (6.5-8.0) g/dL Albumin 4.4 (3.5-5.0) g/dL Independent Interpretation I performed an independent interpretation of an: EKG Interpretation: As above Radiology Impression Discussion of test interpretation with radiology: I have reviewed the radiologist's reading. Radiologist Impression: Findings: No intracranial mass, midline shift, hydrocephalus, or acute hemorrhage. No CT evidence of acute ischemia. 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 Visualized paranasal sinuses and mastoid air cells normal. Orbits unremarkable. No skull fracture Impression: 1. No acute intracranial abnormalities. This document has been electronically signed by: Liborio France MD on 09/02/2025 20:20:55 Findings: Normal limited view of the intracranial contents. Soft tissues of the neck are normal. Lung apices are normal. Normal vertebral body alignment. No fractures or dislocations. 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 Impression: 1. No cervical vertebral fracture or traumatic malalignment. This document has been electronically signed by: Liborio France MD on 09/02/2025 20:22:11 Findings: No fractures or dislocations. No joint effusion. Faint chondrocalcinosis is present. Slight medial compartment spurring is present. No radiopaque foreign body. Impression: 1. No fracture or dislocation. This document has been electronically signed by: Liborio France MD on 09/02/2025 19:39:43 Independent Historian Clinical information obtained from an independent historian. History obtained from or confirmed by: Spouse External Record Review External record reviewed: Inpatient record, Outpatient record, Prior outpatient labs and Prior outpatient radiology Prescription Management I considered prescription management with: Pain Medication Chronic Conditions Patient?s care impacted by: Hypertension Discharge Plan Discharge Clinical Impression: Acute pain of left knee Patient Disposition: Home, Self-Care Instructions: Knee Pain (ED) Additional Instructions: Your imaging of your head, cervical spine and lifting did not show any traumatic injuries. Your blood work was reassuring though your kidney function was slightly elevated which may be due to dehydration Referrals were placed for home physical therapy. Return for new or worsening symptoms. Your INR today was 2.8 Prescriptions: No Action gabapentin 300 mg capsule 300 mg PO BEDTIME metoprolol tartrate 25 mg tablet 12.5 mg PO BID cyanocobalamin (vitamin B-12) 1,000 mcg Tablet 1,000 mcg PO DAILY cetirizine 10 mg Tablet 10 mg PO DAILY glucosamine-chondroitin 1 tab PO BID oxycodone 5 mg Tablet 5 mg PO Q4H PRN (Reason: Pain, Moderate(Pain Scale 4-6)) Qty: 30 0RF Rx Instructions: Partial Fill upon patient request. bacitracin 500 unit/gram ointment 1 appl topical BID Qty: 28 0RF torsemide 20 mg tablet 20 mg PO Q48H fluticasone propionate 50 mcg/actuation spray,suspension 2 spray intranasal DAILY bupropion HCl 150 mg tablet sustained-release 12 hr 150 mg PO DAILY oxybutynin chloride 15 mg tablet extended release 24hr 15 mg PO DAILY calcitriol 0.25 mcg capsule 0.25 mcg PO Q48H isosorbide mononitrate 60 mg tablet extended release 24 hr 60 mg PO DAILY warfarin 5 mg tablet 2.5 mg PO DAILY nitroglycerin 0.4 mg tablet, sublingual 0.4 mg sublingual Q5M PRN (Reason: Chest Pain) pravastatin 80 mg tablet 80 mg PO DAILY albuterol sulfate 90 mcg/actuation HFA aerosol inhaler 2 puff inhalation Q4-6H PRN (Reason: Wheezing) aspirin [Adult Aspirin Regimen] 81 mg tablet,delayed release (DR/EC) 81 mg PO DAILY melatonin 10 mg capsule 10 mg PO BEDTIME PRN (Reason: Insomnia) mirtazapine 45 mg tablet 45 mg PO BEDTIME ropinirole 0.25 mg tablet 0.25 mg PO BEDTIME Print Language: Turkmen
[2025-09-02 19:04] VITALS: BP 143/77; PULSE 76; RESP 16; TEMP 36.9; O2SAT 95; BMI 24.4
[2025-09-02 20:05] LABS: Hemoglobin 11.0 g/dl (12.0-16.0); NRBC Abs Auto 0.000 X10*3/uL (0.0-0.012); NRBC Pct Auto 0.0 /100WBC (0.0-0.2); PLT CLUMP 1; SCAN SMEAR FLAG 1
[2025-09-02 20:07] LABS: Imm Gran Abs Auto 0.02 X10*3/uL (0.00-0.03); Imm Gran Pct Auto 0.6 % (0.0-0.4); MANUAL DIFF FLAG SCAN
[2025-09-02 20:10] LABS: Alanine Aminotransferase 23 U/L (0-31); Albumin Level 4.4 g/dL (3.5-5.0); Alkaline Phosphatase 78 U/L (39-117); Anion Gap 13 (12-20); Aspartate Amino Transferase 26 U/L (5-31); Blood Urea Nitrogen 21 mg/dL (9-16); Calcium 10.6 mg/dL (8.4-10.2); Carbon Dioxide 30 mmol/L (22-29); Chloride 105 mmol/L (96-108); Creatinine Clr Calc Pharmacy 30.9; Estimated Glomerular Filt Rate 35; Potassium 4.1 mmol/L (3.3-5.1); Sodium 144 mmol/L (135-145); Total Protein 7.0 g/dL (6.5-8.0)
[2025-09-02 20:12] LABS: INTERNATIONAL NORM RATIO 2.8 (0.9-1.1); Prothrombin Time 33.5 SEC (11.2-13.5)
[2025-09-02 20:14] LABS: Partial Thromboplastin Time 48.7 SEC (26.7-34.1)
[2025-09-02 20:16] LABS: Hematocrit 35.6 % (37.0-47.0); Lymphocytes Absolute Auto 0.9 X10*3/uL (1.2-4.9); Mean Corpuscular HGB Conc 30.9 g/dl (31.0-35.0); Mean Corpuscular Hemoglobin 29.5 pg (27.0-33.0); Mean Corpuscular Volume 95.4 fL (80.0-98.0); Red Blood Count 3.73 X10*6/uL (4.20-5.50)
[2025-09-02 20:20] LABS: Platelet Count 134 X10*3/uL (160-400); White Blood Count 3.5 X10*3/uL (4.8-10.8)
--- OUTSIDE RECORDS SUMMARY | 2025-09-02 21:13 | XMS_ITS | Encounter Summary ---
Author Organization [facility] Address [address] [place] [id number] Phone Care Team Providers Care Geophysics Professor Name Role Phone ColeTova Mcintosh DO Primary Car e Provider Encounter Details Date Type Department Care Team (Late st Contact Info) Description 02/02/2022 Procedure Pass [facility], Ct Scan - [address] [id number] Social History Tobacco Use Types Packs/Day Years Used Date Smoking Tobacco: Never Smokeless Tobacco: Never Alcohol Use Standard Drinks/Week Comments Yes 0 (1 standard drink = 0.6 oz pur e alcohol) Comments Unknown Sex and Gender Information Value Date Recorded Sex Assigned at Female 10/01/2020 4:00 PM EST Legal Sex Female 6:59 PM EST Gender Identity Female 10/01/2020 4:00 PM EST Sexual Orientation Straight 10/03/2020 4: 32 PM EST documented as of this encounter Functional Status * Calculated C-SSRS Risk Score (Lifetime/Recent) Answer Date of Assessment Author No Risk Indicated 02/02/2022 5:16 PM EDT Susan Baltazar CNP * [place] Suicide Severity Rating Scale (Screener/Recent Self-Report) Question Answer Date of Assessment Author 1. Wish to be (Past 1 Month) No 02/02/2022 5:16 PM EDT Susan Baltazar CNP 2. Non-Specific Active Suicidal Thoughts (Past 1 Month) No 02/02/2022 5:16 PM EDT Susan Baltazar CNP 6. Suicidal Behavior (Lifetime) No 02/02/2022 5:16 PM EDT Canon Daolindsey Bolanos CNP documented as of this encounter Plan of Treatment Not on file documented as of this encounter Visit Diagnoses Not on filedocumented in this encounter Care Teams Geophysics Professor Relationship Specialty Start Date End Date Tova White DO [address] [place] [address] PCP - General Internal Medicine 10/01/20 documented as of this encounter Additional Source Comments The information contained in this document represents components of the legal health record. It is not the complete legal health record.[facility]
--- OUTSIDE RECORDS SUMMARY | 2025-09-02 21:13 | XMS_ITS | Clinical Summary ---
Author Organization [address] Address [address] [place] [address] Phone Care Team Providers Care Scheduling Analyst Name Role Phone Nichole Pantoja MD Primary Care Provider [phone] Allergies Active Allergy Reactions Criticality Noted Date Comments Ciprofloxacin 10/18/2020 Itraconazole Hives 08/14/2005 Metronidazole 10/18/2020 Other Hives 08/14/2005 Ivp Dye [Iv Contrast Dye] Sulfamethoxazole-Trimethoprim Hives 2004 Medications cephalexin (KEFTAB) 500 mg tablet Active cetirizine (ZyrTEC) 10 mg tablet Take 1 Tablet by mouth daily. Active cyanocobalamin (VITAMIN B-12) 1,000 mcg tablet Take 1,000 mcg by mouth daily. Active fluticasone propionate (FLONASE) 50 mcg/actuation nasal spray 2 SPRAYS TO EACH NOSTRIL ONCE A DAY SHAKE GENTLY BEFORE USING Active melatonin 10 mg capsule Take 1 tablet by mouth daily. evening Active aspirin 81 mg EC tablet Take 1 tablet (81 mg total) by mouth 1 (one) time each day. 90 tablet 1 5 Active calcitrioL (ROCALTROL) 0.25 mcg capsule Take 1 capsule (0.25 mcg total) by mouth 1 (one) time each day. 90 capsule 1 5 Active rOPINIRole (REQUIP) 0.25 mg tablet Take 1 tablet (0.25 mg total) by mouth at bedtime. at bedtime. 90 tablet 1 5 Active gabapentin (NEURONTIN) 300 mg capsule Take 1 capsule (300 mg total) by mouth 1 (one) time each day. 90 capsule 1 5 Active pravastatin (PRAVACHOL) 80 mg tablet Take 1 tablet (80 mg total) by mouth at bedtime. at bedtime. 90 tablet 1 5 Active isosorbide mononitrate (IMDUR) 60 mg 24 hr tablet Take 1 tablet (60 mg total) by mouth 1 (one) time each day in the morning. 90 tablet 1 5 Active mirtazapine (REMERON) 45 mg tablet Take 1 tablet (45 mg total) by mouth at bedtime. at bedtime. 90 tablet 1 5 Active acetaminophen (TYLENOL 8 HOUR) 650 mg 8 hr tablet Take 1,000 mg by mouth every 8 (eight) hours if needed for mild pain. Do not crush, chew, or split. Active warfarin (COUMADIN) 5 mg tablet Take 1 tablet (5 mg total) by mouth 1 (one) time each day. 5 Active torsemide (DEMADEX) 20 mg tablet Take 1 tablet (20 mg total) by mouth every other day. 45 tablet 3 5 Active nitroglycerin (NITROSTAT) 0.4 mg SL tablet Take 1 tablet (0.4 mg total) by mouth every 5 (five) minutes if needed for chest pain. 25 tablet 3 5 Active metoprolol tartrate (LOPRESSOR) 25 mg tabletIndication s:Coronary artery disease involving [place] coronary artery of [place] heart with other form of angina pectoris (CMS/HCC V24) Take 0.5 tablets (12.5 mg total) by mouth 2 (two) times a day. 90 each 1 5 Active buPROPion SR (WELLBUTRIN SR) 150 mg 12 hr tablet Take 1 tablet (150 mg total) by mouth 1 (one) time each day in the morning. Do not crush, chew, or split. 90 tablet 1 5 Active docusate sodium (COLACE) 100 mg capsuleIndicatio ns:constipation Take 1 capsule (100 mg total) by mouth 2 (two) times a day. 60 capsule 1 5 08/21/20 25 polyethylene glycol (MIRALAX) 17 gram packetIndication s:constipation Take 17 g by mouth 1 (one) time each day. 30 packet 1 5 08/21/20 25 Active Problems Problem Noted Date Diagnosed Date HILARY (acute kidney injury) 07/02/2025 Patient has healthcare proxy 06/18/2025 Overview (06/18/2025): Connie Brito, daughter, from [place], Preoperative cardiovascular examination 06/03/20 Assessment & Plan (06/03/2025 1:29 PM EDT): According to the Mishra perioperative risk for myocardial infarction or cardiac arrest assessment tool, this patient has a 2.8% risk of myocardial infarction or cardiac arrest, intraoperatively up to 30 days postop. She is able to perform greater than 4 METS. Recent stress testing and echocardiogram as outlined above without any reports of any anginal symptoms. Subsequently, there is no further cardiac testing warranted prior to her procedure. 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 Continue metoprolol and torsemide. Encouraged to continue to follow a low-sodium diet and perform daily weights. Patient will reach out to our office with a weight gain of 2 pounds in 1 day or 5 pounds in 5 days accompanied by worsening peripheral edema, shortness of breath or abdominal distention. Assessment & Plan (12/08/2024 11:49 AM EDT): Euvolemic upon exam today. She will continue on her current dose of torsemide and metoprolol. Encouraged to continue to follow a low-sodium diet and perform daily weights. Patient will reach out to our office with a weight gain of 2 pounds in 1 day or 5 pounds in 5 days accompanied by worsening peripheral edema, shortness of breath or abdominal distention. Patient was given prescription for compression stockings . Bradycardia 11/23/2021 Paroxysmal atrial flutter 11/15/2021 Assessment & Plan (06/03/2025 1:29 PM EDT): Denies perception of arrhythmia. Continues to be anticoagulated on Coumadin for stroke reduction. Educated on risks and benefits of continuing with anticoagulation including increased risk for hemorrhage and decreased risk for stroke. Encouraged to seek emergent medical attention should the patient sustain a fall involving a head strike. The patient understands these risks and agrees to continue. Orders: ECG 12 lead CHF (congestive heart failure) 11/15/2021 Overview (07/03/2024): With reduced ejection fraction - D/C'd from [facility] 10/21/21 Assessment & Plan (12/03/2024 2:11 PM EDT): Paroxysmal atrial fibrillation 12/08/2020 Overview (07/03/2024): Paroxysmal atrial fibrillation Assessment & Plan (12/08/2024 11:50 AM EDT): Patient denies perception of recurrence of arrhythmia. There was apparently an episode of atrial fibrillation during anesthesia while she was undergoing left hip replacement. She appears to be in a regular rhythm today. She continues to be anticoagulated on Coumadin for stroke reduction. She will continue on her current dose of metoprolol. Educated on risks and benefits of continuing with anticoagulation including increased risk for hemorrhage and decreased risk for stroke. Encouraged to seek emergent medical attention should the patient sustain a fall involving a head strike. The patient understands these risks and agrees to continue. Assessment & Plan (12/03/2024 2:11 PM EDT): Umbilical hernia, incarcerated 03/16/2020 DAISY (obstructive sleep apnea) 03/08/2020 Overview (07/03/2024): [facility] Home Sleep Apnea Test: Date 02/26/2020; BMI 34; RDI 9, AHI 9; average oxygen saturation 91% (lowest 81% without saturations <88% for 5% or more of study) - Obstructive Sleep Apnea - mild; without sleep related hypoventilation by 2019 home sleep apnea test. Large hiatal hernia 10/20/2019 Diverticulitis large intesti ne w/o perforation or abscess w/o bleeding 10/20/2019 Gallstones 10/20/2019 Renal cyst 07/04/2019 Overview (07/03/2024): Noted incidentally on CAT scan of Abdomen. Mild episode of recurrent major depressive disor kumar 06/18/2019 Assessment & Plan (12/03/2024 2:11 PM EDT): Other chronic pain 04/08/2018 Emphysema lung 04/23/2017 Atypical lymphocytosis 03/14/2017 Hoarding behavior 04/21/2014 Hypertrophic obstructive cardiomyopathy 01/08/20 14 Overview (07/03/2024): Hypertrophic obstructive cardiomyopathy Assessment & Plan (12/03/2024 2:11 PM EDT): TIA (transient ischemic attack) 10/31/2012 Assessment & Plan (09/05/2024 3:09 PM EST): Orders: ECG 12 lead Multiple rib fractures 05/15/2012 CKD (chronic kidney disease) stage 3, GFR 30-59 ml/min 01/30/2012 Assessment & Plan (12/03/2024 2:11 PM EDT): Orders: Comprehensive metabolic panel; Future IBS (irritable bowel syndrome) 06/07/2011 Restless legs syndrome (RLS) 01/25/2007 Anemia 08/22/2005 Overview (07/03/2024): Iron deficiency, long hx of this due to coumadin and aspirin rx. Neg EGD/CN 2001. Old NH (myocardial infarction) 08/14/2005 Overview (07/03/2024): Non-Q wave NH 2001. Right coronary artery stenting She had a regadenoson MIBI in October 2018 without ischemia or infarction, LVEF normal 76%, and normal TID ratio of 0.82. Last Assessment & Plan: The patient's arm pain resolved with initiation of long-acting nitrates. She did not have any ischemia on stress test from about 2 years ago. Given that her symptoms have resolved with medical therapy, no further investigation at this time. Continue her aspirin, beta-maria, statin. Obesity 08/14/2005 Essential hypertension 08/14/2005 Overview (07/03/2024): Last Assessment & Plan: BP somewhat robust on first check, improved after sitting and resting. She does have significant lower back pain, and some neck pain which she relates to sleeping in a awkward position in her recliner chair. Her blood pressure does improve with rest, therefore will not change her current medication regimen. Continue diuretic, beta-maria, and long-acting nitrates. Assessment & Plan (06/03/2025 1:29 PM EDT): Acceptable during today's exam. I made no changes to her medications. Educated on the importance of diet lifestyle to help further assist in reducing blood pressure. The patient was encouraged to follow low-salt low-fat diet, make purposeful strides towards weight loss, and engage in routine aerobic exercise as tolerated. Assessment & Plan (12/08/2024 11:49 AM EDT): Mildly elevated during our exam today. She will continue on her current medications and focus on diet and lifestyle modification. Educated on the importance of diet lifestyle to help further assist in reducing blood pressure. The patient was encouraged to follow low-salt low-fat diet, make purposeful strides towards weight loss, and engage in routine aerobic exercise as tolerated. Assessment & Plan (12/03/2024 2:11 PM EDT): Orders: Comprehensive metabolic panel; Future Hypercholesterolemia 08/14/2005 Overview (07/03/2024): Last Assessment & Plan: Well-controlled lipid profile. Continue statin Encounters Date Type Department Care Team Description 09/02/2025 5:15 PM EST Office Visit Walk-In Clinic - [address] [phone] Jatin Hankins, DOMINIC Injury of left knee, initial encounter (Primary Dx) 09/02/2025 5:10 PM EST Hospital Encounter Xray - [address] [phone] Arrived 09/02/2025 Telephone Coumadin [address] [phone] Trang Washington LPN 08/26/2025 1:30 PM EST Clinical Support Coumadin [address] [phone] TIA (transient ischemic attack) (Primary Dx); Paroxysmal atrial flutter (CMS/HCC V24, CMS/HCC V28); Paroxysmal atrial fibrillation (CMS/HCC V24, CMS/HCC V28); Personal history of DVT (deep vein thrombosis); extermination inspector (current) use of anticoagulants 08/17/2025 11:35 AM EST Clinical Support Coumadin [address] [phone] TIA (transient ischemic attack) (Primary Dx); Paroxysmal atrial flutter (CMS/HCC V24, CMS/HCC V28); Paroxysmal atrial fibrillation (CMS/HCC V24, CMS/HCC V28); Personal history of DVT (deep vein thrombosis); snf (current) use of anticoagulants 08/17/2025 Office Visit - [facility] Urogynecology [address] [phone] Licha Santiago MD 08/14/2025 Telephone Urogynecology [address] [place] [address] Rica Renee MD 08/10/2025 3:15 PM EST Clinical Support Coumadin [address] [phone] TIA (transient ischemic attack) (Primary Dx); Paroxysmal atrial flutter (CMS/HCC V24, CMS/HCC V28); Paroxysmal atrial fibrillation (CMS/HCC V24, CMS/HCC V28); Personal history of DVT (deep vein thrombosis); extermination inspector (current) use of anticoagulants 08/07/2025 Telephone Adult [address] [phone] Nichole Pantoja MD 08/05/2025 11:45 AM EST Office Visit Urogynecology [address] [phone] Rica Renee MD Postoperative state (Primary Dx) 08/03/2025 3:00 PM EST Clinical Support [address] [phone] TIA (transient ischemic attack) (Primary Dx); Paroxysmal atrial flutter (CMS/HCC V24, CMS/HCC V28); Paroxysmal atrial fibrillation (CMS/HCC V24, CMS/HCC V28); Personal history of DVT (deep vein thrombosis); snf (current) use of anticoagulants 07/31/2025 Telephone Adult [address] [phone] Nichole Pantoja MD 07/24/2025 Telephone [address]ology [address] [place] [phone] Merle Holden NP 07/20/2025 3:00 PM EST [facility] [address] [phone] TIA (transient ischemic attack) (Primary Dx); Paroxysmal atrial flutter (CMS/HCC V24, CMS/HCC V28); Paroxysmal atrial fibrillation (CMS/HCC V24, CMS/HCC V28); Personal history of DVT (deep vein thrombosis); snf (current) use of anticoagulants 07/16/2025 11:30 AM EDT Office Visit Urogynecology - [address] [phone] Kandice Gamble NP Urinary stream splitting (Primary Dx); Postoperative state 07/13/2025 3:00 PM EDT Clinical Support [address] [phone] TIA (transient ischemic attack) (Primary Dx); Paroxysmal atrial flutter (CMS/HCC V24, CMS/HCC V28); Paroxysmal atrial fibrillation (CMS/HCC V24, CMS/HCC V28); Personal history of DVT (deep vein thrombosis); extermination inspector (current) use of anticoagulants 07/09/2025 3:15 PM EDT Clinical Support [address] [phone] TIA (transient ischemic attack) (Primary Dx); Paroxysmal atrial flutter (CMS/HCC V24, CMS/HCC V28); Paroxysmal atrial fibrillation (CMS/HCC V24, CMS/HCC V28); Personal history of DVT (deep vein thrombosis); snf (current) use of anticoagulants 07/02/2025 Results Follow-Up Urogynecology [address] [place] [phone] Cheryle Haney RN 07/01/2025 4:00 PM EDT Office Visit Nephrology - [address] [phone] Errol Diaz MD HILARY (acute kidney injury) ([facility]/HCC V24) (Primary Dx); Stage 3b chronic kidney disease (CMS/HCC V24, CMS/HCC V28); Essential hypertension; Hypertrophic obstructive cardiomyopathy (CMS/HCC V24, CMS/HCC V28) 06/26/2025 Telephone Coumadin [address] [phone] Ruba Lopez LPN 06/26/2025 Telephone Urogynecology [address] [place] [address] Rica Renee MD 06/23/2025 Telephone Coumadin [address] [phone] Ruba Lopez LPN 06/23/2025 Telephone Urogynecology - [address] [place] [phone] Cheryle Haney RN 06/22/2025 7:39 AM EDT Anesthesia Event [facility] [place] [address] [place] [phone] Jatin Ace DO 06/22/2025 7:30 AM EDT - 06/22/2025 9:30 AM EDT Surgery [facility] [place] [address] [place] [phone] Rica Renee MD SUBURETHRAL SLING [27890 (CPT )] 06/22/2025 5:56 AM EDT - 06/22/2025 11:58 AM EDT Hospital Encounter [facility] [place] [address] [place] [phone] Rica Renee MD Discharge Disposition: Home or Self Care 06/22/2025 Telephone Urogynecology - [address] [place] [address] Rica Renee MD 06/19/2025 Telephone Urogynecology - [address] [place] [address] Rica Renee MD 06/18/2025 10:00 AM EDT Consult Adult Medicine [address] [phone] Nichole Pantoja MD Pre-op examination (Primary Dx); Anxiety state; Paroxysmal atrial flutter (CMS/HCC V24, CMS/HCC V28); Stage 3b chronic kidney disease (CMS/HCC V24, CMS/HCC V28); Essential hypertension; Patient has healthcare proxy 06/11/2025 2:30 PM EDT Consult Urogynecology - [address] [phone] Rica Renee MD Stress incontinence (Primary Dx); Urge urinary incontinence 06/09/2025 11:00 AM EDT Office Visit Pulmonology - [place] [address] [phone] Merle Holden NP Encounter for preoperative pulmonary examination (Primary Dx); DAISY (obstructive sleep apnea); Pulmonary emphysema, unspecified emphysema type (CMS/HCC V24, CMS/HCC V28); Anxiety state 06/09/2025 Telephone Pulmonology - [address] [phone] Merle Holden NP 06/08/2025 11:10 AM EDT Anticoagulation - Warfarin Visit Coumadin Clinic - [address] [phone] TIA (transient ischemic attack) (Primary Dx); Paroxysmal atrial flutter (CMS/HCC V24, CMS/HCC V28); Paroxysmal atrial fibrillation (CMS/HCC V24, CMS/HCC V28); Personal history of DVT (deep vein thrombosis); snf (current) use of anticoagulants 06/08/2025 Telephone Pulmonology - [place] [address] [phone] Merle Holden NP 06/03/2025 12:40 PM EDT Consult [facility] [address] [phone] Dianelys Coleman NP Paroxysmal atrial flutter (CMS/HCC V24, CMS/HCC V28) (Primary Dx); Preoperative cardiovascular examination; Essential hypertension; Heart failure with preserved ejection fraction, unspecified HF chronicity (CMS/HCC V24, CMS/HCC V28) from Last 3 Months Immunizations Immunization Administration Dates Next Due H1N1 Inj Preservative Free 10/22/2009 Influenza trivalent, 0.5mL ( Fluad) 65yo and older 07/14/2022,06/22/2021,07/02/2020,2018,07/21/2018,06/26/2017,06/14/2016 Influenza trivalent, 0.5mL, preservative free (Fluarix; FluLaval; Fluzone) ages 6mo and older (Afluria) 3 years and older 06/16/2015,05/28/2013,07/04/2012,2010,06/26/2010,08/29/2009,06/18/2008,1 ,07/11/2005 Pfizer (ages 12 & older) Biv alent, COVID-19 07/14/2022 Pfizer SARS-CoV-2 COVID-19, mRNA, LNP-S, preservative free 05/18/2021,11/18/2020,10/22/2020 Pneumococcal conjugate 13 va lent (Prevnar 13, PCV13) 2mo and older 06/14/2016 Td Tetanus diptheria (Tdvax) 7yo and older 11/30/2008 Tdap Tetanus diptheria acell ular pertussis (Boostrix; Adacel) 7yo and older 02/28/2013 Zoster Live 01/09/2008 Zoster recombinant (Shingrix ) 19yo and older 04/04/2021,01/24/2021 Surgical History Surgery Date Site/Laterality Comments COLONOSCOPY 11/18/2001 PROCEDURE: HISTORICAL COLONOSCOPY; COMMENT: Normal TONSILLECTOMY ADENOIDECTOMY, BILATERAL MYRINGOTOMY AND TUBES PROCEDURE: [place] TONSILLECTOMY & ADENOIDECTOMY <AGE 12 CATARACT EXTRACTION PROCEDURE: HISTORICAL CATARACT REMOVAL; COMMENT: bilat ROTATOR CUFF REPAIR PROCEDURE: HISTORICAL ROTATOR CUFF REPAIR COLONOSCOPY 02/15/2012 PROCEDURE: HISTORICAL COLONOSCOPY; COMMENT: 1 cm polyp at 25 cm: tubular adenoma. OTHER SURGICAL HISTORY PROCEDURE: MN RADIAL KERATOTOMY; COMMENT: bilateral KNEE SURGERY 11/13/2011 Left PROCEDURE: HISTORICAL KNEE SURGERY; COMMENT: Dr. Car - left knee arthroscopic medial meniscectomy UPPER GASTROINTESTINAL ENDOSCOPY 11/18/2001 PROCEDURE: MN UPPER GI ENDOSCOPY PERFORMED; COMMENT: normal ESOPHAGOGASTRODUODENOSCOPY 01/11/2021 PROCEDURE: MN EGD TRANSORAL BIOPSY SINGLE/MULTIPLE; COMMENT: Solitary small duodenal erosion; large hiatal hernia; gastric biopsies: Minimal reactive gastropathy, no inflammation. COLONOSCOPY 01/11/2021 PROCEDURE: HISTORICAL COLONOSCOPY; COMMENT: Diverticulosis, no polyps, no inflammation. No colon cancer screening indicated for 10 years. HYSTERECTOMY HIP ARTHROPLASTY 10/18/2024 - 11/14/[address] UDY AND ABLATION 09/17/2023 - 09/16/2024 ORIF ANKLE FRACTURE 09/17/1999 - 09/16/2000 Left PINS AND PLATES APPENDECTOMY Medical History Medical History Date Comments Obesity, unspecified 08/14/2005 DX:Obesity, unspecified Historical Medical DX 08/14/2005 DX:Other a cute embolism veins; COMMENT: FEBRUARY 2005 Coronary atherosclerosis of unspecified type of vessel, [place] or graft 08/14/2005 DX:Coronary atherosclerosis of unspecified type of vessel, [place] or graft; COMMENT: Echo 09/27/04 EF 50-55% Pure hypercholesterolemia 08/14/2005 DX:Pur e hypercholesterolemia Postherpetic trigeminal neuralgia DX:Postherpetic trigeminal neuralgia Iron deficiency anemia, unspecified DX:Iron deficiency anemia, unspecified Anxiety state, unspecified DX:An xiety state, unspecified Generalized osteoarthrosis, unspecified site DX:Generalized osteoarthrosi s, unspecified site Restless legs syndrome (RLS) 01/25/2007 DX: Restless legs syndrome (RLS) Essential hypertension, benign 08/14/2005 D X:Essential hypertension, benign HSV infection 07/29/2009 DX:HSV infection Benign neoplasm of colon 02/15/2012 DX:Ashish gn neoplasm of colon Fall 05/15/2012 DX:Fall Rib pain 05/15/2012 DX:Rib pain Intertrigo 05/15/2012 DX:Intertrigo Multiple rib fractures 05/15/2012 DX:Multip le rib fractures Fall 05/15/2012 DX:Fall TIA (transient ischemic attack) 10/31/2012 DX:TIA (transient ischemic attack) Urticaria 01/08/2013 DX:Urticaria Allergic rhinitis 01/08/2013 DX:Allergic rh initis HOCM (hypertrophic obstructi ve cardiomyopathy) (CMS/HCC V24, CMS/HCC V28) DX:HOCM (hypertrophic obstru ctive cardiomyopathy) (HCC) Leukopenia DX:Leukopenia Emphysema lung (CMS/HCC V24, CMS/HCC V28) 04/23/2017 DX:Emphysema lung (HCC) Aortic dilatation (CMS/HCC V24) 05/2017 DX:Aortic dilatation ([facility]); COMMENT: asc 4 cm on echo DAISY (obstructive sleep apnea) DX :DAISY (obstructive sleep apnea) 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) DX:History of recurrent deep vein thrombosis (DVT) DVT (deep venous thrombosis) ([facility] V24, [facility] V28) 08/14/2005 DX:DVT (deep venous thrombos is) ([facility]); COMMENT: FEBRUARY 2005, 2 episodes on chronic coumadin Adverse effect of anesthesia Heart disease Atrial fibrillation ([facility] V24, [facility] V28) CHF (congestive heart failur e) ([facility] V24, [facility] V28) Hiatal hernia Family History Medical History Relation Name Comments Leukemia Mother Cervical cancer Sister or uterine, uncertain Kidney cancer Son and lung Blindness Neg Hx Breast cancer Neg Hx Cataracts Neg Hx Colon cancer Neg Hx Glaucoma Neg Hx Macular degeneration Neg Hx Strabismus Neg Hx Relation Name Status Comments Father (Age 77) emphysema 6 sibs Mother (Age 82) heart adul t dm Sister Son Social History Tobacco Use Types Packs/Day Years Used Date Smoking Tobacco: Former Passive Smoke Exposure: Past Smokeless Tobacco: Never Tobacco Cessation:Counseling Given: Not Answered Alcohol Use Standard Drinks/Week Comments Not Currently [...] Orientation Straight 09/22/2024 6: 31 PM EST Obstetrics History Para Term AB IAB SAB Ectopic Multiple Livin g Live Births 3 3 3 3 Date Outcome GA Total Labor Labor/2nd/3rd Weight Sex Type Anes PTL Pam A1 A5 Name Clin Term Term Term Last Filed Vital Signs Vital Sign Reading Time Taken Comments Blood Pressure 119/49 09/02/2025 5:04 PM EST Pulse 80 09/02/2025 5:04 PM EST Temperature 36.6 C (97.8 F) 09/02/2025 5:04 PM EST Respiratory Rate 20 06/22/2025 9:38 AM EDT Oxygen Saturation 97% 09/02/2025 5:04 PM EST Inhaled Oxygen Concentration - - Weight 76.9 kg (169 lb 9.6 oz) 07/01/2025 3:59 P M EDT Height 175.3 cm (5' 9 ) 06/18/2025 9:53 AM EDT Body Mass Index 25.05 06/18/2025 9:53 AM EDT Plan of Treatment Upcoming Encounters Date Type Department Care Team (Late st Contact Info) Description 09/03/2025 2:30 PM EST Clinical Support Coumadin Clinic - [place] [address] [place] [address] 09/22/2025 1:50 PM EST Office Visit Pulmonology - [place] [facility] [address] [place] [phone] Merle Holden, DOMINIC [address] [place] [phone] 01/13/2026 2:15 PM EDT Office Visit Nephrology - [address] [phone] Errol Diaz MD [address] [facility] [address] [place] [phone] Health Maintenance Due Date Last Done Comments Pneumococcal Vaccine: 50+ Years (2 of 2 - PPSV23, PCV20, or PCV21) 08/09/2016 06/14/2016 RSV Immunization Adult Patients (1 - 1-dose 75+ series) 2017 Falls Risk Assessment 08/24/2022 Medicare Annual Wellness Visit 08/24/2022 Social Influencers of Health Screening 08/24/2022 Depression Screening 09/17/2024 COVID-19 Vaccine (9 - Pfizer risk 2024- season) 2025 06/10/2025, 06/21/2024, 07/14/2022, Additional history exists Hypertension/CHF/CAD Annual BMP Blood Test 06/18/2026 06/18/2025, 05/01/2025, 07/07/2024, Additional history exists Osteoporosis Screening (Bone Density Screening) 06/02/2027 06/02/2022 Cholesterol Screening (Lipid Panel) 07/07/2029 07/07/2024, 10/23/2022 DTaP,Tdap,and Td Vaccines (4 - Td or Tdap) 05/09/2034 05/09/2024, 02/28/2013, 11/30/2008 Zoster Vaccines Completed 04/04/2021, 01/15, 01/09/2008 Influenza Vaccine Completed 05/20/2025, , 07/27/2023, Additional history exists HIB Vaccines Aged Out No longer eligi ble based on patient's age to complete this topic HPV Vaccines Aged Out No longer eligi ble based on patient's age to complete this topic Hepatitis A Vaccines Aged Out No long er eligible based on patient's age to complete this topic Hepatitis B Vaccines Aged Out No long er eligible based on patient's age to complete this topic IPV Vaccines Aged Out No longer eligi ble based on patient's age to complete this topic MMR Vaccines Aged Out No longer eligi ble based on patient's age to complete this topic Meningococcal ACWY Vaccine Aged Out N o longer eligible based on patient's age to complete this topic Meningococcal B Vaccine Aged Out No l onger eligible based on patient's age to complete this topic RSV Immunization Patients Under 20 months Aged Out No longer eligible based on patient's age to complete this topic Varicella Vaccines Aged Out No longer eligible based on patient's age to complete this topic Medical Devices Implanted Type Area Ore Roaster Device Identifier Shelf Expiration Date Model / Serial / Lot Sling Transvaginal Advantage Fit Blue - Sn/A - [id number] Implanted:Qty: 1 on 06/22/2025 by Rica Renee MD at [facility] Surgical Mesh Sling Implants N/A: Urethra [employer] LGY [id number] / N/A / [id number] Procedures Procedure Name Priority Date/Time Associated Diagnosis Comments XR KNEE 4+ VIEWS LEFT STAT 09/02/2025 5:25 PM EST Injury of left knee, initial encounter POC PROTIME INR BLOOD Routine 08/26/2025 1:43 PM EST TIA (transient ischemic attack) Paroxysmal atrial flutter (CMS/HCC V24, CMS/HCC V28) Paroxysmal atrial fibrillation (CMS/HCC V24, CMS/HCC V28) Personal history of DVT (deep vein thrombosis) snf (current) use of anticoagulants POC PROTIME INR BLOOD Routine 08/17/2025 11:44 AM EST TIA (transient ischemic attack) Paroxysmal atrial flutter (CMS/HCC V24, CMS/HCC V28) Paroxysmal atrial fibrillation (CMS/HCC V24, CMS/HCC V28) Personal history of DVT (deep vein thrombosis) extermination inspector (current) use of anticoagulants POC PROTIME INR BLOOD Routine 08/10/2025 3:30 PM EST TIA (transient ischemic attack) Paroxysmal atrial flutter (CMS/HCC V24, CMS/HCC V28) Paroxysmal atrial fibrillation (CMS/HCC V24, CMS/HCC V28) Personal history of DVT (deep vein thrombosis) snf (current) use of anticoagulants POC PROTIME INR BLOOD Routine 08/03/2025 3:13 PM EST TIA (transient ischemic attack) Paroxysmal atrial flutter (CMS/HCC V24, CMS/HCC V28) Paroxysmal atrial fibrillation (CMS/HCC V24, CMS/HCC V28) Personal history of DVT (deep vein thrombosis) snf (current) use of anticoagulants POC PROTIME INR BLOOD Routine 07/20/2025 3:33 PM EST TIA (transient ischemic attack) Paroxysmal atrial flutter (CMS/HCC V24, CMS/HCC V28) Paroxysmal atrial fibrillation (CMS/HCC V24, CMS/HCC V28) Personal history of DVT (deep vein thrombosis) extermination inspector (current) use of anticoagulants POC PROTIME INR BLOOD Routine 07/13/2025 2:54 PM EDT TIA (transient ischemic attack) Paroxysmal atrial flutter (CMS/HCC V24, CMS/HCC V28) Paroxysmal atrial fibrillation (CMS/HCC V24, CMS/HCC V28) Personal history of DVT (deep vein thrombosis) snf (current) use of anticoagulants POC PROTIME INR BLOOD Routine 07/09/2025 3:13 PM EDT TIA (transient ischemic attack) Paroxysmal atrial flutter (CMS/HCC V24, CMS/HCC V28) Paroxysmal atrial fibrillation (CMS/HCC V24, CMS/HCC V28) Personal history of DVT (deep vein thrombosis) snf (current) use of anticoagulants CULTURE URINE Routine 07/01/2025 4:59 PM EDT Urinary tract infection without hematuria, site unspecified TH AN LMA(NO CHARGE) Routine 06/22/2025 8:03 AM EDT MN CYSTOSCOPY CHEMODENERVATION BLADDER 06/22/2025 7:40 AM EDT Stress incontinence Urge urinary incontinence Case Notes Cystoscopic InjeTAK needle Special Needs Skin to skin:45min MN SLING OPERATION FOR STRESS INCONTINENCE 06/22/2025 7:40 AM EDT Stress incontinence Urge urinary incontinence Case Notes Cystoscopic InjeTAK needle Special Needs Skin to skin:45min PROTHROMBIN TIME WITH INR Routine 06/22/2025 6:29 AM EDT ECG 12-LEAD Routine 06/18/2025 2:39 PM EDT Pre-op examination PROTEIN AND CREATININE WITH RATIO, URINE Routine 06/18/2025 11:34 AM EDT Stage 3b chronic kidney disease (CMS/HCC V24, CMS/HCC V28) Essential hypertension Other urinary incontinence MICROALBUMIN CREATININE URINE RATIO Routine 06/18/2025 11:34 AM EDT Hypertension, unspecified type Stage 3 chronic kidney disease, unspecified whether stage 3a or 3b CKD (CMS/HCC V24, CMS/HCC V28) RENAL FUNCTION PANEL Routine 06/18/2025 11:34 AM EDT Hypertension, unspecified type Stage 3 chronic kidney disease, unspecified whether stage 3a or 3b CKD (CMS/HCC V24, CMS/HCC V28) POC PROTIME INR BLOOD Routine 06/08/2025 TIA (transient ischemic attack) Paroxysmal atrial flutter (CMS/HCC V24, CMS/HCC V28) Paroxysmal atrial fibrillation (CMS/HCC V24, CMS/HCC V28) Personal history of DVT (deep vein thrombosis) extermination inspector (current) use of anticoagulants ECG 12-LEAD Routine 06/03/2025 1:29 PM EDT Paroxysmal atrial flutter (CMS/HCC V24, CMS/HCC V28) LIPID PANEL Routine 10/23/2022 DXA BONE DENSITY STUDY 1+ SITS AXIAL SKEL Routine 06/02/2022 2:44 PM EDT Other specified personal risk factors, not elsewhere classified from Last 3 Months or Most Recently Relevant to Health Maintenance Results * XR Knee 4+ Views Left [...] Signed Date: 09/02/2025 18:19 ET Workstation ID: [id number] Transcribed By: Self Edit Transcribed Date: 09/02/2025 [...] Signed Date: 09/02/2025 18:19 ET Workstation ID: [id number] Transcribed By: Self Edit Transcribed Date: 09/02/2025 18:17 ET Jatin Hankins BEATER OUT LEVELING MACHINE IMG XR PROCEDURES Final Resul t * POC Protime INR Blood (08/26/2025 1:43 PM EST) Only the most recent of8 resultswithin the time period is included. Lot Number INR POC 4.1 Prothrombin Time POC Exp Date Blood 08/26/2025 1:43 PM EST Nichole Pantoja MD POINT OF CARE TEST ENTER/EDIT OR DERABLES Final Result * Culture urine (07/01/2025 4:59 PM EDT) Culture, Urine 10,000-49,000 CFU/mL Mixed bacterial morphotypes present suggestive of possible contamination during collection. Suggest appropriate recollection if clinically indicated. 07/02/2025 2:48 PM EDT [facility] Urine Urine specimen obtained by clean catch procedure / Unknown Non-blood Collection / Unknown 07/01/2025 4:59 PM EDT 07/01/2025 4:59 PM EDT Rica Renee MD LAB MICROBIOLOGY - GENERAL CAMILA SKINNER Final Result [facility] [address] [place] [address], [place] [phone] * TH AN LMA(NO CHARGE) (06/22/2025 8:03 AM EDT) Narrative Elvi Toledo CRNA - 06/22/2025 8:03 AM EDT Elvi Toledo CRNA 06/22/2025 8:04 AM General Information and Staff Patient location during procedure: OR Performed by: Elvi Toledo CRNA Authorized by: Jatin Ace DO Intubation Additional Comments LMA inserted by mat machine operator student Justice Airway not difficult Reason: elective Final Airway Details Ventilation between attempts: none LMA Size: 4 LMA Type: Classic LMA Seal Pressure: Final airway type: LMA Indications and Patient Condition Indications for airway management: anesthesia and airway protection Sedation level: Yes Preoxygenated: yesSoft Tissue Damage: No Dentition Unchanged: Yes Patient position: neutral MILS not maintained throughout Mask difficulty assessment: 0 - not attempted Start Time: 06/22/2025 7:53 AMStop Time: 06/22/2025 7:53 AM us Jatin Ace DO ANESTHESIA ORDERABLES Final Res ult * Protime-INR (06/22/2025 6:29 AM EDT) Protime 10.8 10.6 - 13.9 sec LAB COAGULATION METHOD 06/22/2025 6:46 AM EDT [facility] INR 0.9 LAB COAGULATION METHOD 06/22/2025 6:46 AM EDT [facility] Blood Venous blood specimen / Unknown Venipuncture / Unknown 06/22/2025 6:29 AM EDT 06/22/2025 6:32 AM EDT us Rica Renee MD LAB BLOOD ORDERABLES Final Resu lt [facility] [address] [place] [address], [place] [phone] * ECG 12 lead (06/18/2025 2:39 PM EDT) Only the most recent of2 resultswithin the time period is included. Narrative Nichole Pantoja MD - 06/18/2025 2:39 PM EDT Today's EKG reviewed by me, I have difficulty to a certain regarding patient's rhythm, it is likely sinus rhythm with a sinus arrhythmia, nonspecific ST-T changes including LVH. I compared EKG with previous tracing there is no acute ischemic changes. Nichole Pantoja MD ECG ORDERABLES Final Result * (ABNORMAL) Protein and creatinine with ratio, urine (06/18/2025 11:34 AM EDT) Protein, Urine 17 mg/dL LAB CHEMISTRY METHOD 06/18/2025 4:29 PM EDT [facility] Prot/Creat, Ur 0.22(H) <=0.20 mg/mg creat LAB CHEMISTRY METHOD 06/18/2025 4:29 PM EDT [facility] Creatinine, Urine 76.0 mg/dL LAB CHEMISTRY METHOD 06/18/2025 4:29 PM EDT [facility] Urine Urine specimen obtained by clean catch procedure / Unknown Non-blood Collection / Unknown 06/18/2025 11:34 AM EDT 06/18/2025 11:34 AM EDT Errol Diaz MD LAB URINE ORDERABLES Final Resu lt [facility] [address] [place] [address], * Microalbumin creatinine urine ratio (06/18/2025 11:34 AM EDT) Creatinine, Urine 76.0 mg/dL LAB CHEMISTRY METHOD 06/18/2025 4:38 PM EDT [facility] Microalb, Ur 6.6 0.0 - 29.0 mg/L LAB CHEMISTRY METHOD 06/18/2025 4:38 PM EDT [facility] Microalb/Creat Ratio 9 <30 mg/g creat LAB CHEMISTRY METHOD 06/18/2025 4:38 PM [facility] Urine Urine specimen obtained by clean catch procedure / Unknown Non-blood Collection / Unknown 06/18/2025 11:34 AM EDT 06/18/2025 11:34 AM EDT us Errol Diaz MD LAB URINE ORDERABLES Final Resu lt [facility] [address] [place] [address], [place] [phone] * (ABNORMAL) Renal function panel (06/18/2025 11:34 AM EDT) Sodium 140 133 - 145 mmol/L LAB CHEMISTRY METHOD 06/18/2025 2:44 PM [facility] Potassium 4.1 3.5 - 5.5 mmol/L LAB CHEMISTRY METHOD 06/18/2025 2:44 PM [facility] Chloride 104 96 - 110 mmol/L LAB CHEMISTRY METHOD 06/18/2025 2:44 PM [facility] CO2 31 21 - 32 mmol/L LAB CHEMISTRY METHOD 06/18/2025 2:44 PM [facility] Anion Gap 5 3 - 11 LAB CHEMISTRY METHOD 06/18/2025 2:44 PM [facility] Glucose 100 70 - 100 mg/dL LAB CHEMISTRY METHOD 06/18/2025 2:44 PM [facility] BUN 27(H) 5 - 25 mg/dL LAB CHEMISTRY METHOD 06/18/2025 2:44 PM [facility] Creatinine 1.89(H) 0.50 - 1.10 mg/dL LAB CHEMISTRY METHOD 06/18/2025 2:44 PM [facility] eGFR 26(L) >=60 mL/min/1. 73m2 LAB CHEMISTRY METHOD 06/18/2025 2:44 PM EDT [facility] Comment:Calculation based on the Chronic Kidney Disease Epidemiology Collaboration (CKD-EPI) equation refit without adjustment for race. BUN/Creatinine Ratio 14.3 LAB CHEMISTRY METHOD 06/18/2025 2:44 PM EDT [facility] Albumin 3.8 3.2 - 5.0 g/dL LAB CHEMISTRY METHOD 06/18/2025 2:44 PM EDT [facility] Calcium 10.0 8.5 - 10.5 mg/dL LAB CHEMISTRY METHOD 06/18/2025 2:44 PM EDT [facility] Phosphorus 3.8 2.5 - 4.5 mg/dL LAB CHEMISTRY METHOD 06/18/2025 2:44 PM EDT [facility] Blood Venous blood specimen / Unknown Venipuncture / Unknown 06/18/2025 11:34 AM EDT 06/18/2025 11:34 AM EDT Errol Diaz MD LAB BLOOD ORDERABLES Final Resu lt [facility] [address] [place] [address], * Lipid panel (10/23/2022) LDL/HDL Ratio 3 0 - 4 Triglycerides 134 0 - 150 mg/dL Cholesterol 174 0 - 200 mg/dL HDL 64 >=40 mg/dL LDL Cholesterol 84 0 - 100 mg/dL Blood Venous blood specimen / Unknown us Jacoby Provider LAB BLOOD ORDERABLES Kimberley l Result * DXA BONE DENSITY STUDY 1+ SITS AXIAL SKEL (06/02/2022 2:44 PM EDT) Anatomical Region Laterality Modality Bone Densitometr y 05/29/2022 1:54 PM EDT Narrative 06/02/2022 3:11 PM EDT BONE DENSITY Lumbar Spine T-score is -0.2 (SD relative to 20-29 y/o adult) Z-score is +2.5 (SD relative to age matched peers) This is normal by criteria defined by the WHO. Left Hip T-score is -1.5 Z-score is +0.8 This is consistent with osteopenia by criteria defined by the WHO. Comparison exam(s): no statistically significant change in the bone density of the hip and lumbar spine when compared to most recent bone density examination Confidence level is +/-95%. Impression: Based on the World Health Organization criteria, Trang Wolf should be classified as having osteopenia. This patient has a 34% risk of major osteoporotic fracture and a 21% risk of hip fracture over the next 10 years. (World Health Organization Fracture Risk Assessment) [facility] Department of Internal Medicine recommends using National Osteoporosis Foundation (NOF) guidelines in treatment decisions related to osteoporosis. NOF guidelines suggest considering treatment for postmenopausal women and men aged 50 or older presenting with the following: History of hip or vertebral fracture. T-score less than or equal to -2.5 (DXA) at the femoral neck, total hip, or spine, after appropriate evaluation to exclude secondary causes. Low bone mass (T-score between -1.0 and -2.5 at the femoral neck or spine) AND a 10-year probability of a hip fracture greater than or equal to 3% OR a 10-year probability of a major osteoporosis-related fracture greater than or equal to 20% based on the [place]-adapted WHO algorithm Please note that all treatment decisions require clinical judgment and consideration of individual patient factors, including patient preferences, co-morbidities, previous drug use, risk factors not captured in the FRAX model (e.g., frailty, falls, vitamin D deficiency, increased bone turnover, interval significant decline in bone density) and possible under- or over-estimation of fracture risk by FRAX. Procedure Note Carlito Dash MD - 09/05/2022 BONE DENSITY Lumbar Spine T-score is -0.2 (SD relative to 20-29 y/o adult) Z-score is +2.5 (SD relative to age matched peers) This is normal by criteria defined by the WHO. Left Hip T-score is -1.5 Z-score is +0.8 This is consistent with osteopenia by criteria defined by the WHO. Comparison exam(s): no statistically significant change in the bonedensity of the hip and lumbar spine when compared to most recent bonedensity examination Confidence level is +/-95%. Impression: Based on the World Health Organization criteria, Trang Wolf should beclassified as having osteopenia. This patient has a 34% risk of majorosteoporotic fracture and a 21% risk of hip fracture over the next 10years. (World Health Organization Fracture Risk Assessment) [facility] Department of Internal Medicine recommendsusing National Osteoporosis Foundation (NOF) guidelines in treatmentdecisions related to osteoporosis. NOF guidelines suggest consideringtreatment for postmenopausal women and men aged 50 or older presentingwith the following: History of hip or vertebral fracture. T-score less than or equal to -2.5 (DXA) at the femoral neck, total hip,or spine, after appropriate evaluation to exclude secondary causes. Low bone mass (T-score between -1.0 and -2.5 at the femoral neck or spine)AND a 10-year probability of a hip fracture greater than or equal to 3% ORa 10-year probability of a major osteoporosis-related fracture greaterthan or equal to 20% based on the [place]-adapted WHO algorithm Please note that all treatment decisions require clinical judgment andconsideration of individual patient factors, including patientpreferences, co-morbidities, previous drug use, risk factors not capturedin the FRAX model (e.g., frailty, falls, vitamin D deficiency, increasedbone turnover, interval significant decline in bone density) and possibleunder- or over-estimation of fracture risk by FRAX. Agustín LOUIS IMG DXA PROCEDURES Final Result from Last 3 Months or Most Recently Relevant to Health Maintenance Insurance MEDICARE Member Subscriber Plan / Payer (Ef fective 2007-Present) Name:TRANG WOLF Member ID:[id number] Relation to Subscriber:Self Name:Trang Wolf Subscriber ID:[id number] Payer ID:Not on file Group ID:[id number] Type:Medicare Address: [address] [place] [address] [facility] Member Subscriber Plan / Payer (Ef fective 2015-Present) Name:TRANG WOLF Relation to Subscriber:Self Name:Trang Wolf Payer ID:[id number] Group ID:[id number] Type:Not on file Address: [address] [place] [address] Advance Directives Documents on File Type Date Recorded Patient Library Circulation Technician Expl anation Power of Track Repairer 06/22/2025 5:56 AM HCP * Full Code - Default (Latest Code Status on File) Date Activated Date Inactivated Comments 06/22/2025 9:14 AM 06/22/2025 2:03 PM This is orde r is used when code status has not been discussed with the patient, or code status is otherwise unknown/unconfirmed To update the patient's code status, place a code status order. Do not modify or discontinue any currently active code status orders. Care Teams Scheduling Analyst Relationship Specialty Start Date End Date Nichole Pantoja MD [address] [place] [id number] PCP - General Internal Medicine 02/03/21
--- OUTSIDE RECORDS SUMMARY | 2025-09-02 21:13 | XMS_ITS | Encounter Summary ---
Author Organization [facility] Address [address] [place] [address] Phone Care Team Providers Care Wood Preserving Plant Laborer Name Role Phone PromiseliammarryTova Mcintosh DO Primary Car e Provider Encounter Details Date Type Department Care Team (Late st Contact Info) Description 10/01/2020 Procedure Pass [facility], Ct Scan - [address] [address] Social History Tobacco Use Types Packs/Day Years Used Date Smoking Tobacco: Never Alcohol Use Standard Drinks/Week Comments [...] Date of Assessment Author No Risk Indicated 10/03/2020 4:32 PM EST Lamar Macias, RN * [place] Suicide Severity Rating Scale (Screener/Recent Self-Report) Question Answer Date of Assessment Author 1. Wish to be (Past 1 Month) No 021 4:32 PM EST Lamar Ba, RN 2. Non-Specific Active Suici ewa Thoughts (Past 1 Month) No 10/03/2020 4:32 PM EST Lamar Ba, RN 6. Suicidal Behavior (Lifetime) No 4:32 PM Lamar Buck RN documented as of this encounter Plan of Treatment Not on file documented as of this encounter Visit Diagnoses Not on filedocumented in this encounter Care Teams Wood Preserving Plant Laborer Relationship Specialty Start Date End Date Tova White DO [address] [place] [address] PCP - General Internal Medicine 10/01/20 documented as of this encounter Additional Source Comments The information contained in this document represents components of the legal health record. It is not the complete legal health record.[facility]
--- OUTSIDE RECORDS SUMMARY | 2025-09-02 21:13 | XMS_ITS | Clinical Summary ---
Author Organization [facility] Address [address] [facility] [address] [place] [address] Phone Care Team Providers Care Locomotive Crane Engineer Name Role Phone Tova White DO Primary Car e Provider Allergies Active Allergy Reactions Criticality Noted Date Comments Ciprofloxacin 10/03/2020 Petechial rash on shins after cipro/flagyl Iodinated Contrast Media 08/26/2019 Sulfamethoxazole-Trimethoprim 2020 Itraconazole 10/01/2020 Medications albuterol (PROAIR HFA) 90 mcg/actuation inhaler Inhale 2 puffs into the lungs. 0 Active aspirin (ASPIR-LOW) 81 MG EC tablet 1 tablet Active ascorbate calcium-bioflav onoid (CHYNA-C WITH BIOFLAVONOIDS) 1,000-200 mg Tab Take by mouth. Activ e cetirizine (ZYRTEC) 10 MG tablet TAKE 1 TABLET BY MOUTH DAILY NEEDED FOR ALLERGIES 0 Active fluticasone propionate (FLONASE) 50 mcg/actuation nasal spray 2 sprays each nostril once daily as needed. 9 Active glucosam-chond- hrb 149-hyal ac (GLUCOS CHOND CPLX ADVANCED) 750 mg-100 mg- 125 mg-1.65 mg Tab Take 1 tablet by mouth. Active melatonin 10 mg Cap Take 1 tablet by mouth. Active metoprolol succinate (TOPROL-XL) 50 MG 24 hr tablet Take 50 mg by mouth. 1 Active mirtazapine (REMERON) 45 MG tablet Take 45 mg by mouth. 0 Active multivitamins capsule Active nitroglycerin (NITROSTAT) 0.4 MG SL tablet 1 tablet under the tongue and allow to dissolve as needed Active oxybutynin (DITROPAN XL) 15 MG 24 hr tablet Take 15 mg by mouth. 0 Active pravastatin (PRAVACHOL) 80 MG tablet Take 80 mg by mouth. 0 Active rOPINIRole (REQUIP) 0.25 MG tablet Take 0.25 mg by mouth. 9 Active warfarin (COUMADIN) 5 MG tablet Take 5 mg by mouth. 9 Active cyanocobalamin, vitamin B-12, 1000 MCG tablet Take 1,000 mcg by mouth. Active Active Problems No known active problems Social History Tobacco Use Types Packs/Day Years Used Date Smoking Tobacco: Never Smokeless Tobacco: Never Alcohol Use Standard Drinks/Week Comments Yes 0 (1 standard drink = 0.6 oz pur e alcohol) Education Answer Date Recorded Are you interested in more education? Not on siena e 01/11/2023 Are you concerned about learning? Not on file 01/11/2023 No 01/11/2023 No 01/11/2023 Digital Access Answer Date Recorded No 02/12/2023 No 02/12/2023 Reliable internet access at home? Not on file 02/12/2023 Device with a working camera? Not on file Comments Unknown Sex and Gender Information Value Date Recorded Sex Assigned at Female 10/01/2020 4:00 PM EST Legal Sex Female 6:59 PM EST Gender Identity Female 10/01/2020 4:00 PM EST Sexual Orientation Straight 10/03/2020 4: 32 PM EST Last Filed Vital Signs Vital Sign Reading Time Taken Comments Blood Pressure 151/77 02/02/2022 10:42 PM EDT Pulse 52 02/02/2022 10:42 PM EDT Temperature 36.8 C (98.2 F) 02/02/2022 8:56 PM EDT Respiratory Rate 16 02/02/2022 10:42 PM EDT Oxygen Saturation 96% 02/02/2022 10:42 PM EDT Inhaled Oxygen Concentration - - Weight 104.3 kg (230 lb) 02/02/2022 10:44 PM EDT Height 172.7 cm (5' 8 ) 02/02/2022 10:44 PM EDT Body Mass Index 34.97 02/02/2022 10:44 PM EDT Plan of Treatment Health Maintenance Due Date Last Done Comments DEPRESSION SCREENING 1954 OSTEOPOROSIS SCREENING INITIAL (ONE-TIME) 2007 RSV VACCINE (1 - 1-dose 75+ series) 2017 PNEUMOCOCCAL VACCINES (50+ years) (2 of 2 - PCV20 or PCV21) 06/14/2017 06/14/2016 ZOSTER VACCINES (3 of 3) 03/21/2021 01/24/2021, 12/17 Adult Td,Tdap Booster 02/28/2023 02/28/2013, 009 INFLUENZA VACCINE (#1) 2025 , 07/02/2020, 07/02/2020, Additional history exists COVID-19 VACCINE ( season) 2025 11/18/2020, 10/22/2020 HEPATITIS A VACCINES Aged Out No long er eligible based on patient's age to complete this topic HIB VACCINES Aged Out No longer eligi ble based on patient's age to complete this topic MENINGOCOCCAL VACCINES (ACWY) Aged Out No longer eligible based on patient's age to complete this topic MENINGOCOCCAL VACCINES (B) Aged Out N o longer eligible based on patient's age to complete this topic Medical Devices Not on file Insurance MEDICARE PART A & B [facility] MEDICARE PART A & B [facility] MEDICARE PART A & B [facility] MEDICARE PART A & B [facility] MEDICARE PART A & [place] [address] [place] [address] MEDICARE PART A & B [facility] MEDICARE PART A & B Member Subscriber Plan / Payer (Ef fective 2007-Present) Name:Trang Haynes Member ID:[id number] Relation to Subscriber:Self Name:Trang Haynes Subscriber ID:[id number] Payer ID:[id number] Group ID:Not on file Type:Medicare Address: [facility] [employer] [facility] [address] [place] [phone] [facility] MEDICARE PART A & B [facility] MEDICARE PART A & B [facility] Care Teams Locomotive Crane Engineer Relationship Specialty Start Date End Date Tova White DO [address] [place] [id number] PCP - General Internal Medicine 10/01/20 Additional Source Comments The information contained in this document represents components of the legal health record. It is not the complete legal health record.[facility]
--- OUTSIDE RECORDS SUMMARY | 2025-09-02 21:13 | XMS_ITS | Data Portability ---
Author Organization [place] - [facility], [facility] Address [address] [place] [id number] Care Team Providers Care Senior [address] Engineer Name Role Phone [facility] OTHER [phone] PIETER ANURAG Primary Care Provider [phone] Assessment Encounter Date Assessment Date Assessment LastModified by Organization Details LastModified Time 08/03/2021 08/03/2021 This a pleasant 81 year old female with past medical history of Afib, DVT on warfarin, CHF, CAD with stent x 2, HLD, HTN, CKD stage III who is new to and new to this provdier being seen today for near syncopal event that occurred this afternoon while walking around in living room. Afebrile, non-toxic although chronically ill appearing 81 year old female being seen today at home. A&O X4, walking around in kitchen on arrival, appears in NAD. Speaking in full sentences. No dyspnea with exertion. LS CTAB with fine crackle to RLL. No signs of respiratory distress. HR irregularly irregular. +3 b/l LE edema. PPP. Ambulates with independent steady gait. Skin pink, dry and intact. No diaphoresis. Non-focal neuro exam. VS - 98.2; 119; 126/72; 18; 93% on RA Workup/Results: Deferred to ED Plan/Discussion : Patient being seen today for lightheadedness . Had near syncopal event this afternoon. Denied any chest pain, palpitations or shortness of breath. Patient found to have irregularly irregular HR. Initial reading 116 which went down to 106. After sitting for approx 15 mintues, recheck was 128, irregular. High concern for recurrent Afib with RVR given recent hosptial admission with cardioversion. Patient was discharged home on amiodorone. Patient currently denies chest pain, shortness of breath, palpitations, light. Given symptomatic with irregular HR recommended ED and patient in agreement, 911 was activiated. Facesheet and warm handoff given. Incorrect time on scene ~40minutes including wait time for EMS [email or web address] Not available 08/03/2021 18:36:23 Plan of Treatment Reminders Order Date Submit Date Provider Last Modified By Organization Details Last Modified Time Details Appointments None record ed. Lab None record ed. Referral None record ed. Procedures None record ed. Surgeries None record ed. Imaging None record ed. Medication Orders None record ed. Patient TargetsNo targets recorded. Patient Instructions Encounter Date Encounter Id Patient Instructions Last Modified By Organization Details Last Modified Time 08/03/2021 [id number] 911 activated. [email or web address] Not available 08/03/2021 17:03:51 Reason for Referral None Reported. Procedures Surgical History Date Name Laterality Status Provider Name and Address Organization Details Recorded Time placement of stent in cardiac conduit completed NIDA OH NP [address], [place], [address], [place] [facility] 08/03/2021 15:59:09 Total Hysterectomy completed NIDA OH NP [address], [place], [address], [place] [facility] 08/03/2021 15:59:54 Appendectomy completed NIDA OH NP [address], [place], [address], [place] [facility] 08/03/2021 16:00:07 Imaging Results None recorded. Procedure Notes None recorded. Medical Equipment None Reported. Allergies Allergen ID Allergen Name Allergen Category Reaction Reaction Severity Criticality Documentation Date Start Date Code Code System Note Provider Name and Address Organization Details Recorded Time 165603 Sporanox medicatio n Not available Not available Not available 08/03/2021 6 RxNorm NIDA OH NP [address], [place], [address], [place] [facility] 15:50:43 224720 Flagyl medicatio n Not available Not available Not available 08/03/2021 6 RxNorm NIDA OH NP [address], [place], [address], [place] [facility] 11/17/202 1 15:50:50 574172 Cipro medicatio n Not available Not available Not available 08/03/2021 76679 3 RxNorm NIDA OH, [employer] [address], [place], [address], [place] [facility] 15:50:56 390219 sulfameth oxazole / trimethop rim medicatio n Not available Not available Not available 08/03/2021 94911 RxNorm NIDA MALDONADOMER, [employer] [address], [place], [address], [place] [facility] 15:51:13 Medications Name Sig Start Date Stop Date Status Note LastModified by Organization Details LastModified Time bupropion HCl SR 150 mg tablet,12 hr sustained-r elease active Not Available Not Available Not Available oxybutynin chloride ER 15 mg tablet,exte nded release 24 hr active Not Available Not Available Not Available torsemide 20 mg tablet TAKE 1 TABLET BY MOUTH EVERY DAY active Not Available Not Available No t Available cetirizine 10 mg tablet active Not Available Not Available Not Available tizanidine 4 mg tablet active Not Available Not Available Not Available amiodarone 200 mg tablet TAKE 2 TABLETS (400 MG) BY MOUTH TWO TIMES A DAY FOR 2 DAYS, THEN TAKE 2 TABLETS (400 MG) ONCE DAILY FOR 7 DAYS, THEN TAKE 1 TABLET (200 MG) DAILY THEREAFTE R active Not Available Not Available No t Available metoprolol succinate ER 50 mg tablet,exte nded release 24 hr active Not Available Not Available Not Available isosorbide mononitrate ER 30 mg tablet,exte nded release 24 hr active Not Available Not Available Not Available metoprolol succinate ER 100 mg tablet,exte nded release 24 hr active Not Available Not Available Not Available metronidazo le 500 mg tablet 08/03 completed Not Available Not Available Not Available ciprofloxac in 500 mg tablet 08/03 completed Not Available Not Available Not Available ciclopirox 8 % topical solution active Not Available Not Available Not Available isosorbide mononitrate ER 60 mg tablet,exte nded release 24 hr active Not Available Not Available Not Available pravastatin 80 mg tablet active Not Available Not Available Not Available warfarin 5 mg tablet active Not Available Not Available No t Available metoprolol tartrate 50 mg tablet TAKE 3 TABLETS BY MOUTH TWO TIMES A DAY active Not Available Not Available No t Available nitroglycer in 0.[address] TABLET UNDER TONGUE EVERY 5 MIN NEEDED FOR CHEST PAIN, MAX OF 3 DOSES/15 MIN CALL 911/SEEK MEDICAL ATTENTION IF PAIN PERSISTS* * active Not Available Not Available No t Available mirtazapine 45 mg tablet active Not Available Not Available Not Available furosemide 20 mg tablet active Not Available Not Available Not Available calcitriol 0.25 mcg capsule active Not Available Not Available Not Available amoxicillin 875 mg-potassiu m clavulanate 125 mg tablet 08/03 completed Not Available Not Available Not Available oxycodone 5 mg tablet active Not Available Not Available No t Available peg 3350-electr olytes 236 gram-22.74 gram-6.74 gram-5.86 gram solution 08/03 completed Not Available Not Available Not Available Vitals Date Recorded Heart rate Heart rate Provider Name and Address Organization Details Last Updated DateTime 08/03/2021 128 /min 119 /min NIDA OH NP [address], [place], [address], [place] - [facility] 08/03/2021 16:33:53 Date Recorded Body temperature Respiratory rate Heart rate Oxygen saturation Systolic And Diastolic Provider Name and Address Organization Details Last Updated DateTime 98.2 [degF] 18 /min 106 /min 93 % 126/72 mm[Hg] Not Available [facility] 15:56:34 Social History Question Answer Notes LastModified by [employer] Details LastModified Time Tobacco Smoking Status Former Smoker NIDA OH NP [address], [place], [address], [place] [facility] 08/03/2021 16:00:55 Do You Have An Advance Directive? Yes [email or web address] Information not available 08/03/2021 What Is Your Code Status? Full Code [email or web address] Information not available 08/03/2021 How Many Years Have You Smoked Tobacco? 4 [email or web address] Information not available 08/03/2021 Sex: Unknown Functional Status Question Answer Note LastModified by [employer] Details LastModified Time Do you use any illicit or recreational drugs? No [email or web address] Information not available 08/03/2021 Do you or have you ever used any other forms of tobacco or nicotine? No [email or web address] Information not available 08/03/2021 What is your level of alcohol consumption? Occasional [email or web address] Information not available 08/03/2021 Mental Status None recorded. Family History Nothing Reported. Medical History Condition Response Coronary Artery Disease Y CHF Y High Cholesterol Y Hypertension Y A-fib Y Kidney Disease Y Gynecological HistoryNo gynecological history recorded. Obstetrics History GPAL:G 0 P 0 0 0 0 Past Encounters Encounter ID Performer Location Encounter Start Date Encounter Closed Date Diagnosis/Indication Diagnosis SNOMED-CT Code Diagnosis ICD10 Code Diagnosis IMO Codes Diagnosis Note [id number] NIDA OH NP [facility] [address] [facility] [place] [address] 08/03/2021 15:21:52 08/08/2021 18:56:58 Near syncope 697387257 R55 Tachycardia 9670665 R00. 0 Atrial fibrillation 4943 6004 I48.91 history Long-term current use of anticoagulant 300123989 Z79.01 last INR 2.4 Health Concerns Section Related Observation LastModified by Organization Detai ls LastModified Time None Recorded Concern Status LastModified by Organization Details LastModified Time None Recorded Advance Directives Directive Y: Payers Insurance Date Sequence Insurance Name Policy Number Policy Mo Covered Member ID Mo Member ID Guarantor Name 08/10/2021 1 [place]ICARE [place]: [employer] Trang Haynes [id number] Trang Haynes 08/10/2021 1 *SELF PAY* Trang Haynes [id number] Trang Haynes Notes Date Note Type Note Provider Name and Address Organization Details Recorded Time 08/03/2021 text/html 81 year old with past medical history of Afib, DVT on warfarin, CHF, CAD with stent x 2, HLD, HTN, CKD stage III who is seen today for lightheadedness. Around 11 oclock today patient was up walking around kitchen and 'felt like i was going to pass out'. Denies LOC or fall. Denies CP or palpitations. Patient then sat down at kitchen table and continued to feel lightheaded for about an hour. She had not ate or drank yet at that time. Since she has had some mac n cheese and water. Call was placed today [facility]. Patient was recently discharged from hospital for cardioversion/Sue b with RVR, states 'i was shocked three times'. Patient was sent home on amiodorone. Taking warfarin daily, last INR was 2.4. Patient reports continued fatigue, which was ongoing before hospital. Holter monitor on hold. Denies lightheadedness, chest pain, arm pain, jaw pain, shortness of breath. NIDA OH NP [address] [place] [address], [address], [place] - [facility] 08/03/2021 18:36:40 OBGyn Episode No OBEpisode recorded.
--- OUTSIDE RECORDS SUMMARY | 2025-09-02 21:13 | XMS_ITS ---
Author Name [facility] Organization Unknown History of Medication Use Medication Directions Dispensed Refills Start Date End Date Stat docusate sodium (COLACE) 100 mg capsule Take 1 capsule (100 mg total) by mouth 2 (two) times a day. 06/22/2025 active polyethylene glycol (MIRALAX) 17 gram packet Take 17 g by mouth 1 (one) time each day. 06/22/2025 active traMADoL (ULTRAM) 50 mg tablet Take 1 tablet (50 mg total) by mouth every 12 (twelve) hours if needed for severe pain for up to 3 days. Max Daily Amount: 100 mg 06/22/2025 active mirtazapine (REMERON) 45 mg tablet Take 1 tablet (45 mg total) by mouth at bedtime. at bedtime. 06/17/2025 active cephalexin (KEFLEX) 250 mg capsule Take 1 capsule (250 mg total) by mouth 2 (two) times a day for 10 days. Start taking on Sunday06/13/25 06/13/2025 active isosorbide mononitrate (IMDUR) 60 mg 24 hr tablet Take 1 tablet (60 mg total) by mouth 1 (one) time each day in the morning. 06/09/2025 active mirabegron (MYRBETRIQ) 50 mg 24 hr tablet Take 1 tablet (50 mg total) by mouth 1 (one) time each day. 03/27/2025 06/19/2025 active aspirin 81 mg EC tablet Take 1 tablet (81 mg total) by mouth 1 (one) time each day. 03/16/2025 active calcitrioL (ROCALTROL) 0.25 mcg capsule Take 1 capsule (0.25 mcg total) by mouth 1 (one) time each day. 03/16/2025 active gabapentin (NEURONTIN) 300 mg capsule Take 1 capsule (300 mg total) by mouth 1 (one) time each day. 03/16/2025 active metoprolol tartrate (LOPRESSOR) 25 mg tablet Take 0.5 tablets (12.5 mg total) by mouth 2 (two) times a day. 03/16/2025 active pravastatin (PRAVACHOL) 80 mg tablet Take 1 tablet (80 mg total) by mouth at bedtime. at bedtime. 03/16/2025 active rOPINIRole (REQUIP) 0.25 mg tablet Take 1 tablet (0.25 mg total) by mouth at bedtime. at bedtime. 03/16/2025 active warfarin (COUMADIN) 5 mg tablet Take 1 tablet (5 mg total) by mouth 1 (one) time each day. 03/16/2025 active buPROPion SR (WELLBUTRIN SR) 150 mg 12 hr tablet Take 1 tablet (150 mg total) by mouth 1 (one) time each day in the morning. Do not crush, chew, or split. 03/09/2025 active nitroglycerin (NITROSTAT) 0.4 mg SL tablet Take 1 tablet (0.4 mg total) by mouth every 5 (five) minutes if needed for chest pain. 12/08/2024 active torsemide (DEMADEX) 20 mg tablet TAKE 1 TABLET BY MOUTH EVERY 48 HOURS 09/05/2024 active metoprolol tartrate (LOPRESSOR) 25 mg tablet TAKE 1/2 TABLET BY MOUTH TWICE DAILY FOR 180 DAYS 08/12/2024 active acetaminophen (TYLENOL 8 HOUR) 650 mg 8 hr tablet Take 1,000 mg by mouth every 8 (eight) hours if needed for mild pain. Do not crush, chew, or split. active albuterol HFA (PROAIR HFA ; PROVENTIL HFA ; VENTOLIN HFA) 90 mcg/actuation inhaler Inhale 2 Puffs into the lungs 4 times daily as needed for Cough or Wheezing. active aspirin 81 mg EC tablet Take 1 Tab by mouth daily. active calcitrioL (ROCALTROL) 0.25 mcg capsule Take 1 Capsule by mouth every other day. active cephalexin (KEFTAB) 500 mg tablet Take 1 Tablet by mouth 4 times daily. active cetirizine (ZyrTEC) 10 mg tablet Take 1 Tablet by mouth daily. active cyanocobalamin (VITAMIN B-12) 1,000 mcg tablet Take 1,000 mcg by mouth daily. active diazePAM (VALIUM) 5 mg tablet PLEASE SEE ATTACHED FOR DETAILED DIRECTIONS active estradioL (ESTRACE) 0.01 % (0.1 mg/gram) vaginal cream Apply a pea-sized amount of cream with your finger into the vagina daily at bedtime for 2 weeks, then two times a week at night. active fluticasone propionate (FLONASE) 50 mcg/actuation nasal spray 2 SPRAYS TO EACH NOSTRIL ONCE A DAY SHAKE GENTLY BEFORE USING active gabapentin (NEURONTIN) 300 mg capsule 1 Capsule daily. active glucos sul 2KCl/msm/chond/C/Mn (GLUCOSAMINE CHONDROITIN ORAL) Take 1 Tab by mouth 2 times daily. active melatonin 10 mg capsule Take 1 tablet by mouth daily. evening active mirtazapine (REMERON) 45 mg tablet TAKE 1 TABLET BY MOUTH DAILY AT BEDTIME active nitroglycerin (NITROSTAT) 0.4 mg SL tablet active oxyBUTYnin XL (DITROPAN-XL) 15 mg 24 hr tablet Take 1 Tablet by mouth daily. active pravastatin (PRAVACHOL) 80 mg tablet Take 1 Tablet by mouth at bedtime. active rOPINIRole (REQUIP) 0.25 mg tablet Take 1 Tablet by mouth at bedtime. active warfarin (COUMADIN) 5 mg tablet Take 0.5-1 Tablets by mouth daily. May cause heavy bleeding. Take at same time every day. Do not change dietary habits. active Allergies Allergen Reaction Severity Comment Documented Date Source Statu s METRONIDAZOLE 10/18/2020 [facility] acti ve SULFAMETHOXAZOLE-TR IMETHOPRIM HIVES 08/14/2005 [facility] active CIPROFLOXACIN [facility] ITRACONAZOLE HIVES [facility] OTHER HIVES Ivp Dye [Iv Contrast Dye] [facility] Problems Problem Status Onset Date Problem Type Date of Resolution Source Leukopenia active 2024-07-03 ProblemAct [facility] Renal cyst active 2019-07-04 ProblemAct [facility] snf (current) use of anticoagulants active 2024-07-28 ProblemAct [facility] Paroxysmal atrial flutter (CMS/HCC V24, CMS/HCC V28) active 2021-11-15 ProblemAct C [facility] Old RI (myocardial infarction) active 2005-08-14 ProblemAct [facility] Obesity active 2005-08-14 ProblemAct [facility] Thyroid nodule active 2023-02-22 ProblemAct [facility] Personal history of DVT (deep vein thrombosis) active 2024-07-28 ProblemAct [facility] Bradycardia active 2021-11-23 ProblemAct [facility] Urinary incontinence active 2022-05-26 ProblemAct [facility] TIA (transient ischemic attack) active 2012-10-31 ProblemAct [facility] Mild episode of recurrent major depressive disorder ([facility]24) active 2019-06-18 ProblemAct [facility] DAISY (obstructive sleep apnea) active 2020-03-08 ProblemAct [facility] Anxiety state active 2024-03-18 ProblemAct [facility] Paroxysmal atrial fibrillation ([facility] V24, [facility] V28) active 2020-12-08 ProblemAct [facility] Other chronic pain active 2018-04-08 ProblemAct [facility] Atypical lymphocytosis active 2017-03-14 ProblemAct [facility] Large hiatal hernia active 2019-10-20 ProblemAct [facility] Essential hypertension active 2005-08-14 ProblemAct [facility] Hypercholesterolemia active 2005-08-14 ProblemAct [facility] Emphysema lung ([facility] V24, [facility] V28) active 2017-04-23 ProblemAct [facility] IBS (irritable bowel syndrome) active 2011-06-07 ProblemAct [facility] Hypertrophic obstructive cardiomyopathy ([facility] V24, [facility] V28) active 2014-01-07 ProblemAct [facility] Restless legs syndrome (RLS) active 2007-01-25 ProblemAct [facility] Gallstones active 2019-10-20 ProblemAct [facility] Umbilical hernia, incarcerated active 2020-03-16 ProblemAct [facility] Heart failure with preserved ejection fraction ([facility] V24, [facility] V28) active 2021-12-21 ProblemAct C [facility] Patient has healthcare proxy active 2025-06-18 ProblemAct [facility] CKD (chronic kidney disease) stage 3, GFR 30-59 ml/min ([facility] V24, [facility] V28) active 2012-01-30 ProblemAct [facility] Multiple rib fractures active 2012-05-15 ProblemAct [facility] HILARY (acute kidney injury) ([facility] V24) active 2025-07-02 ProblemAct [facility] Osteopenia active 2023-07-09 ProblemAct [facility] Hoarding behavior active 2014-04-21 ProblemAct [facility] Anemia active 2005-08-22 ProblemAct [facility] Diverticulitis large intestine w/o perforation or abscess w/o bleeding active 2019-10-20 ProblemAct [facility] CHF (congestive heart failure) ([facility] V24, [facility] V28) active 2021-11-15 ProblemAct [facility] Immunizations Vaccine Date Source Lot Number Status Influenza trivalent, 0.5mL ( Fluad) 65yo and older 07/14/2022 [facility] [id number] completed Influenza trivalent, 0.5mL ( Fluad) 65yo and older 07/14/2022 [facility] [id number] completed Pfizer (ages 12 & older) Biv alent, COVID-19 07/14/2022 [facility] [id number] completed Pfizer (ages 12 & older) Biv alent, COVID-19 07/14/2022 [facility] [id number] completed Pfizer (ages 12 & older) Biv alent, COVID-19 07/14/2022 [facility] [id number] completed Influenza trivalent, 0.5mL ( Fluad) 65yo and older 06/22/2021 [facility] [id number] completed Influenza trivalent, 0.5mL ( Fluad) 65yo and older 06/22/2021 [facility] [id number] completed Pfizer SARS-CoV-2 COVID-19, mRNA, LNP-S, preservative free 05/18/2021 [facility] completed Pfizer SARS-CoV-2 COVID-19, mRNA, LNP-S, preservative free 05/18/2021 [facility] completed Zoster recombinant (Shingrix ) 19yo and older 04/04/2021 [facility] [id number] completed Zoster recombinant (Shingrix ) 19yo and older 04/04/2021 [facility] [id number] completed Zoster recombinant (Shingrix ) 19yo and older 01/24/2021 [facility] [id number] completed Zoster recombinant (Shingrix ) 19yo and older 01/24/2021 [facility] [id number] completed Pfizer SARS-CoV-2 COVID-19, mRNA, LNP-S, preservative free 11/18/2020 [facility] [id number] completed Pfizer SARS-CoV-2 COVID-19, mRNA, LNP-S, preservative free 11/18/2020 [facility] [id number] completed Pfizer SARS-CoV-2 COVID-19, mRNA, LNP-S, preservative free 10/22/2020 [facility] [id number] completed Pfizer SARS-CoV-2 COVID-19, mRNA, LNP-S, preservative free 10/22/2020 [facility] [id number] completed Influenza trivalent, 0.5mL ( Fluad) 65yo and older 07/02/2020 [facility] [id number] completed Influenza trivalent, 0.5mL ( Fluad) 65yo and older 07/02/2020 [facility] [id number] completed Influenza trivalent, 0.5mL ( Fluad) 65yo and older 08/11/2019 [facility] [id number] completed Influenza trivalent, 0.5mL ( Fluad) 65yo and older 08/11/2019 [facility] [id number] completed Influenza trivalent, 0.5mL ( Fluad) 65yo and older 07/21/2018 [facility] [id number] completed Influenza trivalent, 0.5mL ( Fluad) 65yo and older 07/21/2018 [facility] [id number] completed Influenza trivalent, 0.5mL ( Fluad) 65yo and older 07/21/2018 [facility] [id number] completed Influenza trivalent, 0.5mL ( Fluad) 65yo and older 06/26/2017 [facility] [id number] completed Influenza trivalent, 0.5mL ( Fluad) 65yo and older 06/26/2017 [facility] [id number] completed Influenza trivalent, 0.5mL ( Fluad) 65yo and older 06/26/2017 [facility] [id number] completed Influenza trivalent, 0.5mL ( Fluad) 65yo and older 06/14/2016 [facility] [id number] completed Influenza trivalent, 0.5mL ( Fluad) 65yo and older 06/14/2016 [facility] [id number] completed Pneumococcal conjugate 13 va lent (Prevnar 13, PCV13) 2mo and older 06/14/2016 [facility] [id number] complet ed Pneumococcal conjugate 13 va lent (Prevnar 13, PCV13) 2mo and older 06/14/2016 [facility] [id number] complet ed Pneumococcal conjugate 13 va lent (Prevnar 13, PCV13) 2mo and older 06/14/2016 [facility] [id number] complet ed Influenza trivalent, 0.5mL, preservative free (Fluarix; FluLaval; Fluzone) ages 6mo and older (Afluria) 3 years and older 06/16/2015 [facility] [id number] completed Influenza trivalent, 0.5mL, preservative free (Fluarix; FluLaval; Fluzone) ages 6mo and older (Afluria) 3 years and older 06/16/2015 [facility] [id number] completed Influenza trivalent, 0.5mL, preservative free (Fluarix; FluLaval; Fluzone) ages 6mo and older (Afluria) 3 years and older 05/28/2013 [facility] [id number] completed Influenza trivalent, 0.5mL, preservative free (Fluarix; FluLaval; Fluzone) ages 6mo and older (Afluria) 3 years and older 05/28/2013 [facility] [id number] completed Influenza trivalent, 0.5mL, preservative free (Fluarix; FluLaval; Fluzone) ages 6mo and older (Afluria) 3 years and older 05/28/2013 [facility] [id number] completed Tdap Tetanus diptheria acell ular pertussis (Boostrix; Adacel) 7yo and older 02/28/2013 [facility] [id number] completed Tdap Tetanus diptheria acell ular pertussis (Boostrix; Adacel) 7yo and older 02/28/2013 [facility] [id number] completed Tdap Tetanus diptheria acell ular pertussis (Boostrix; Adacel) 7yo and older 02/28/2013 [facility] [id number] completed Influenza trivalent, 0.5mL, preservative free (Fluarix; FluLaval; Fluzone) ages 6mo and older (Afluria) 3 years and older [id number] completed Influenza trivalent, 0.5mL, preservative free (Fluarix; FluLaval; Fluzone) ages 6mo and older (Afluria) 3 years and older 07/04/2012 [facility] [id number] completed Influenza trivalent, 0.5mL, preservative free (Fluarix; FluLaval; Fluzone) ages 6mo and older (Afluria) 3 years and older 06/05/2011 [facility] [id number] completed Influenza trivalent, 0.5mL, preservative free (Fluarix; FluLaval; Fluzone) ages 6mo and older (Afluria) 3 years and older 06/05/2011 [facility] [id number] completed Influenza trivalent, 0.5mL, preservative free (Fluarix; FluLaval; Fluzone) ages 6mo and older (Afluria) 3 years and older 06/26/2010 [facility] [id number] completed Influenza trivalent, 0.5mL, preservative free (Fluarix; FluLaval; Fluzone) ages 6mo and older (Afluria) 3 years and older 06/26/2010 [facility] [id number] completed Influenza trivalent, 0.5mL, preservative free (Fluarix; FluLaval; Fluzone) ages 6mo and older (Afluria) 3 years and older 06/26/2010 [facility] [id number] completed Influenza trivalent, 0.5mL, preservative free (Fluarix; FluLaval; Fluzone) ages 6mo and older (Afluria) 3 years and older 06/26/2010 [id number] completed H1N1 Inj Preservative Free 10/22/2009 [facility] [id number] completed H1N1 Inj Preservative Free 10/22/2009 [facility] [id number] completed Influenza trivalent, 0.5mL, preservative free (Fluarix; FluLaval; Fluzone) ages 6mo and older (Afluria) 3 years and older 08/29/2009 [facility] [id number] completed Influenza trivalent, 0.5mL, preservative free (Fluarix; FluLaval; Fluzone) ages 6mo and older (Afluria) 3 years and older 08/29/2009 [facility] [id number] completed Td Tetanus diptheria (Tdvax) 7yo and older 11/30/2008 [facility] [id number] completed Td Tetanus diptheria (Tdvax) 7yo and older 11/30/2008 [facility] [id number] completed Influenza trivalent, 0.5mL, preservative free (Fluarix; FluLaval; Fluzone) ages 6mo and older (Afluria) 3 years and older 06/18/2008 [facility] [id number] completed Influenza trivalent, 0.5mL, preservative free (Fluarix; FluLaval; Fluzone) ages 6mo and older (Afluria) 3 years and older 06/18/2008 [facility] [id number] completed Zoster Live 01/09/2008 [facility] [id number] completed Zoster Live 01/09/2008 [facility] [id number] completed Influenza trivalent, 0.5mL, preservative free (Fluarix; FluLaval; Fluzone) ages 6mo and older (Afluria) 3 years and older 06/29/2007 [facility] [id number] completed Influenza trivalent, 0.5mL, preservative free (Fluarix; FluLaval; Fluzone) ages 6mo and older (Afluria) 3 years and older 06/29/2007 [facility] [id number] completed Influenza trivalent, 0.5mL, preservative free (Fluarix; FluLaval; Fluzone) ages 6mo and older (Afluria) 3 years and older 07/11/2005 [facility] completed Influenza trivalent, 0.5mL, preservative free (Fluarix; FluLaval; Fluzone) ages 6mo and older (Afluria) 3 years and older 07/11/2005 [facility] completed Influenza trivalent, 0.5mL, preservative free (Fluarix; FluLaval; Fluzone) ages 6mo and older (Afluria) 3 years and older 07/11/2005 [facility] completed Care Team Organization Name Specialty Phone Email Start Date End Da te [facility] 05/06/2025 [facility] 08/29/2023 05/05/2024 [facility] Agustín [facility] 02/23/202305/05 [facility]ee[facility] 07/25/2022
--- OUTSIDE RECORDS SUMMARY | 2025-09-02 21:13 | XMS_ITS | Data Portability ---
Author Organization [place] - [facility], Allergy Address [address] [place] [address] Care Team Providers Care Wild Oyster Harvester Name Role Phone ANURAG PANTOJA Primary Care Provider Assessment Encounter Date Assessment Date Assessment LastModified by Organization Details LastModified Time 04/27/2025 04/27/2025 The patient demonstrates normal findings in the throat and vocal cords upon examination. There is no evidence of growths, tumors, or abnormalities from an ENT standpoint. 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 I recommend a modified barium swallow to evaluate swallowing difficulties further. This test involves a speech therapist and radiologist assessing different consistencies of food to identify potential issues. Additionally, I suggest a gastroenterology consultation to evaluate the hiatal hernia and determine if surgical intervention is necessary based on its size and impact on the patient's health. The patient reports constant ringing in the left ear and has not worn a hearing aid despite having one. I recommend follow-up with her hearing aid provider in [place] for a hearing evaluation and assessment of her current hearing aid. I will communicate these findings and recommendations to Dr. Pantoja for further coordination of care. Procedure Documentation: - Nasopharyngeal telescope examination performed during the visit. [email or web address] Not available 04/27/2025 15:46:26 Plan of Treatment Reminders Order Date Submit [...] Modified By Organization Details Last Modified Time 04/27/2025 55300 - Follow up with Dr. Pantoja for coordination of a modified barium swallow and gastroenterology consultation. - Contact hearing aid provider in [place] for a hearing evaluation and assessment of current hearing aid. ray Not available 04/27/2025 15:46:23 Please note: Par ts of this encounter note have been generated by AI based on audio conversation. Patient consent was required prior to utilizing this technology. Content review was required prior to finalizing the note. [email or web address] Not available 04/27/2025 15:46:23 Reason for Referral None Reported. Problems Name Problem SNOMED Code Status Onset Date Resolution Date Notes Provider Name and Address Organization Details Recorded Time Dizziness and giddiness 289884377 Active 2017 Dizziness and giddiness ; Note: Date Diagnosed : 01/29/2018 2:40 PM (R42) Not Available [facility] 4 02:25:58 Tinnitus of left ear 10745734181 06 Active 2017 Tinnitus, left ear; Note: Date Diagnosed : 01/29/2018 2:40 PM (H93.12) JESSIE MCDANIELS MD [address] [facility],[place] [address], [place], [address] , [facility] - [facility] 5 15:45:38 Bilateral disorder of Eustachia n tubes 48547613619 59060 Active 2017 Other specified disorders of Eustachia n tube, bilateral ; Note: Date Diagnosed : 03/05/2018 4:44 PM (H69.83) Not Available [facility] 4 02:25:53 Dysphagia 50197986 Active 2024 JESSIE MCDANIELS MD [address] [place] [address],[place] [address], [place], [phone] , [facility] - [facility] 5 15:42:12 Deviated nasal septum 952066678 Active 2024 JESSIE MCDANIELS MD [address] [place] [address],[place] [address], [place], [phone] , [facility] - [facility] 5 15:42:57 Problem Notes None recorded. Procedures Surgical History Date Name Laterality Status Provider Name and Address Organization Details Recorded Time 04/27/20 25 Fiberoptic Laryngoscopy (Comprehensive) completed JESSIE REDDY MD [address] [place] [address], [place], [address], [facility] 04/27/2025 15:41:43 ablation operation for arrhythmia completed MARISELA JARRELL [facility] 04/27/2025 16:13:56 Imaging Results None recorded. Procedure Notes None recorded. Medical Equipment None Reported. Allergies Allergen ID Allergen Name Allergen Category Reaction Reaction Severity Criticality Documentation Date Start Date Code Code System Note Provider Name and Address Organization Details Recorded Time 234986 Flagyl medicatio n hives Not available Not available 04/27/2025 30755 6 RxNorm MARISELA merida [facility] 5 16:06:22 215818 ciproflox acin medicatio n hives Not available Not available 04/27/2025 2551 RxNorm MARISELA merida [facility] 5 16:06:39 78928 sulfameth oxazole / trimethop rim medicatio n other Not available Not available 01/29/2024 21013 RxNorm React ion: unkno wn, unspe cifie d;; Not Available [facility] 4 00:55:39 53582 Iodinated contrast media (substanc e) medicatio n other Not available Not available 01/29/2024 90414 2004 SNOMED React ion: unkno wn, unspe cifie d;; Not Available [facility] 4 00:55:46 Medications Name Sig Start Date Stop Date Status Note LastModified by Organization Details LastModified Time bupropion HCl SR 150 mg tablet,12 hr sustained -release active Not Available Not Available Not Available oxybutyni n chloride ER 15 mg tablet,ex tended release 24 hr active Not Available Not Available Not Available torsemide 20 mg tablet active Not Available Not Available Not Available valacyclo vir 500 mg tablet 04/27 completed Not Available Not Available Not Available tramadol 50 mg tablet TAKE 1 TO 2 TABLETS BY MOUTH EVERY 6 HOURS NEEDED FOR MILD PAIN. DO NOT EXCEED 8 TABLETS (400MG) PER DAY. active Not Available Not Available No t Available warfarin 4 mg tablet active Not Available Not Available Not Available isosorbid e mononitra te ER 60 mg tablet,ex tended release 24 hr 04/27 completed Not Available Not Available Not Available pravastat in 80 mg tablet active Not Available Not Available Not Available ropinirol e 0.25 mg tablet active Not Available Not Available Not Available erythromy natali 5 mg/gram (0.5 %) eye ointment 04/27 completed Not Available Not Available Not Available warfarin 5 mg tablet active Not Available Not Available Not Available metoprolo l tartrate 50 mg tablet 04/27 completed Not Available Not Available Not Available nitroglyc david 0.4 mg sublingua l tablet active Not Available Not Available Not Available gabapenti n 300 mg capsule active Not Available Not Available Not Available mirtazapi ne 45 mg tablet active Not Available Not Available Not Available lisinopri l 5 mg tablet 04/27 completed Medicati on ID: [id number] D uration Value: 30 Brand Name: lisinopr il Send Method: E-Prescr ibed Sub s Allowed: subs OK Medic ationGen ericName : lisinopr il Not Available Not Available Not Available furosemid e 20 mg tablet 04/27 completed Medicati on ID: [id number] D uration Value: 30 Brand Name: furosemi de Send Method: E-Prescr ibed Sub s Allowed: subs OK Medic ationGen ericName : furosemi de Not Available Not Available Not Available metoprolo l succinate ER 25 mg tablet,ex tended release 24 hr 04/27 completed Medicati on ID: [id number] D uration Value: 30 Brand Name: metoprol ol succinat e Send Method: E-Prescr ibed Sub s Allowed: subs OK Medic ationGen ericName : metoprol ol succinat e Not Available Not Available Not Available warfarin 1 mg tablet TAKE 1 TO 10 TABLETS BY MOUTH EVERY DAY DIRECTED BY NEOS 04/27 completed Not Available Not Available Not Available estradiol 0.01% (0.1 mg/gram) vaginal cream active Not Available Not Available Not Available albuterol sulfate HFA 90 mcg/actua tion aerosol inhaler active Not Available Not Available Not Available fluticaso ne propionat e 50 mcg/actua tion nasal spray,debbi estrella 2017 active Medicati on ID: [id number] D uration Value: 60 Brand Name: fluticas one Send Method: E-Prescr ibed Sub s Allowed: No subs Med icationG enericNa me: fluticas one Not Available Not Available Not Available calcitrio l 0.25 mcg capsule active Not Available Not Available Not Available oxycodone 5 mg tablet TAKE 1 TO 2 TABLETS BY MOUTH EVERY 4 HOURS NEEDED FOR SEVERE PAIN active Not Available Not Available No t Available enoxapari n 30 mg/0.3 mL subcutane ous syringe INJECT THE CONTENTS OF 1 SYRINGE (0.3 ML) SUBCUTAN EOUSLY EVERY 12 HOURS FOR 10 DAYS. DISCONTI NUE WHEN INR IS GREATER THAN 1.8 active Not Available Not Available No t Available enoxapari n 80 mg/0.8 mL subcutane ous syringe INJECT 1 SYRINGEF UL (0.8ML) SUBCUTAN EOUSLY TWICE A DAY active Not Available Not Available No t Available metoprolo l tartrate 25 mg tablet active Not Available Not Available Not Available buprenorp catrachito 20 mcg/hour weekly transderm al patch 04/27 completed Not Available Not Available Not Available mirabegro n ER 50 mg tablet,ex tended release 24 hr TAKE 1 TABLET ONCE DAILY active Not Available Not Available No t Available Vitals Date Recorded Body height Body mass index (BMI) Body weight Provider Name and Address Organization Details Last Updated DateTime 04/27/2025 175.26 cm 24.5 kg/m2 36428.33 g MARISELA JARRELL [facility] 04/27/2025 15:57:29 Social History None recorded. Functional Status Question Answer Note LastModified by Organization D etails LastModified Time What is your level of alcohol consumption? None [email or web address] Information not available 04/27/2025 Mental Status None recorded. Family History Nothing Reported Notes:- Mother: Goiter. - Si ster: Overactive encapsulated thyroid gland. Medical History Condition Response Heart Attack ([place]) Y Arthritis Y Hypertension Y Anxiety Y Gynecological HistoryNo gynecological history recorded. Obstetrics History GPAL:G 0 P 0 0 0 0 Past Encounters Encounter ID Performer Location Encounter Start Date Encounter Closed Date Diagnosis/Indication Diagnosis SNOMED-CT Code Diagnosis ICD10 Code Diagnosis IMO Codes Diagnosis Note [id number] JESSIE MCDANIELS MD [facility] [address] [place] [address] 04/27/2025 15:07:55 04/27/2025 15:49:25 Dysphagia 05059692 R13.19 064304 Deviated nasal septum 12 8023040 J34.2 008497 Tinnitus of left ear 026 4426448 106 H93.12 480137 neg MRI 2018 Health Concerns Section Related Observation LastModified by Organization Detai ls LastModified Time None Recorded Concern Status LastModified by Organization Details LastModified Time None Recorded Advance Directives Directive None Recorded Payers Insurance Date Sequence Insurance Name Policy Number Policy Mo Covered Member ID Mo Member ID Guarantor Name 04/27/2025 1 [place] [employer] Trang Haynes [id number] Trang Haynes 04/27/2025 2 [facility]: [place]GRAM (PPO) [id number] Trang Haynes [id number] Trang Haynes 04/27/2025 1 [facility] - FEP 33F Trang Haynes [id number] Trang Haynes Notes Date Note Type Note Provider Name and Address Organization Details Recorded Time 04/27/2025 text/html Trang Haynes is an 85-year-old female who presents for evaluation of thyroid concerns and swallowing difficulties. She reports having a hiatal hernia and trouble swallowing, which has been ongoing for several years. She describes being the slowest eater at the table and notes difficulty finishing meals. She recalls a chest radiograph indicating a hiatal hernia but has not undergone a barium swallow or other diagnostic studies for her swallowing issues. She denies significant voice changes, although occasional alterations in her voice occur. Her medical history includes atrial fibrillation, a heart attack, transient ischemic attack (TIA), and pneumonia. She is currently on Coumadin. Family history is notable for thyroid conditions, including goiter in her mother and thyroid encapsulation in her sister. 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 JESSIE REDDY MD [address] [facility],[place] [address], [place], [address], [facility] - [facility] 04/27/2025 16:16:38 OBGyn Episode No OBEpisode recorded.
--- OUTSIDE RECORDS SUMMARY | 2025-09-02 21:13 | XMS_ITS | Patient Health Record ---
Author Organization [facility] Address [address] [facility] [place] [address] Care Team Providers Care Mounter Automatic Name Role Phone TommarryTova Mcintosh Primary Care Provid er Unavailable Jonnie Lan Unavailable [phone] Allergies Allergen (clinical drug ingredient) Drug/Non Drug Allergy documented on EMR Reaction Allergy Type Onset Date Status Information temporarily unavailable IVP Dyes hives Drug Allergy Active Information temporarily unavailable Aspirin on coumadin Drug Allergy Active Information temporarily unavailable Septra hives Drug Allergy Active Information temporarily unavailable Sporanox hives Drug Allergy Active Reason For Referral No Information Medications Medication SIG (Take, Route, Frequency, Duration) Notes Start Date End Date Status HYDROcodone-Acetaminophen Active Warfarin Sodium 5 MG 1 tablet Orally Two times a Week; Duration: 30 day(s) Active Ibuprofen 200 MG 1 tablet Orally 1; Duration: 1 dose 07/15/2013 Active clonazePAM 0.5 MG 1 tablet at bedtime Orally Once a day Active Mupirocin 2 % 1 application to aff ected area Externally Three times a day Active Furosemide 20 MG 1 tablet Orally Once a day; Duration: 30 day(s) Active QUEtiapine Fumarate 100 MG 1 tablet at b edtime Orally Once a day; Duration: 30 day(s) Active Sertraline HCl 100 MG 1 tablet Orally On ce a day; Duration: 30 day(s) Active Losartan Potassium 50 MG 1 tablet Orally Once a day; Duration: 30 day(s) Active Pravastatin Sodium 80 MG 1 tablet Orally Once a day; Duration: 30 day(s) Active Problems Problem Type SNOMED Code ICD Code Onset Dates Problem Status W/U Status Risk Notes Problem Bursitis (87057219) Bursitis (727.3) Active confirmed Problem Calcaneal spur (27052838) Calcaneal spur (726.73) Active confirmed Problem Myositis (33220605) Myositis (729.1) Active confirmed Problem Onychomycosis (432151401) Onychomycosis (110.1) Active confirmed Problem Pain in limb (82622673) Pain in Limb (729.5) Active confirmed Problem Plantar fasciitis (688966684) Plantar Fasciitis (728.71) Active confirmed Problem Tibialis tendinitis (98725365) Posterior Tibial Tendonitis (726.72) Active confirmed Plan Of Treatment Pending Test Test Name Order Date X ray : Foot, right 3V 07/15/2013 [id number] NAIL, 6 OR MORE 10/07/2013 [id number] Destruction, 1-14 10/07/2013 Insurance Providers Payer Name Payer Address Payer Phone Subscriber Number Group Number Insured Name Patient Relationship to Insured Coverage Start Date Coverage End Date Medicare National [employer] [address] [facility] [place] [address] [id number] Trang Haynes Self - patient is the insured [facility] [address] [place] [address] [id number] Trang Haynes Self - patient is the insured 7 Medical (General) History Medical History History ICD Code anemia anxiety back, hip, knee pain diverticulosis hypertension osteoporosis sinus conditions cholesterol liver disease Surgical History Surgery Date(Month/Year) hysterectomy 1985
--- OUTSIDE RECORDS SUMMARY | 2025-09-02 21:13 | XMS_ITS | Encounter Summary ---
Author Organization [facility] Address [address] [place] [address] Care Team Providers Care [employer] Name Role Phone Nichole Pantoja MD Primary Care Provider [phone] Encounter Details Date Type Department Care Team (Late Contact Info) Description 07/02/2025 Results Follow-Up Urogynecology - [address] [place] [address] Cheryle Haney RN Social History Tobacco Use Types Packs/Day Years [...] 09/03/2025 2:30 PM EST Clinical Support Coumadin [address] [phone] 09/22/2025 1:50 PM EST Office Visit Pulmonology - [place] [address] [facility] [address] [place] [phone] Merle Holden, DOMINIC [address] [place] [address] 01/13/2026 2:15 PM EDT Office Visit Nephrology [facility] [address] [place] [address] Errol Diaz MD [address] [facility] [address] [place] [address] documented as of this encounter Visit Diagnoses Not on filedocumented in this encounter Care Teams [employer] Relationship Specialty Start Date End Date Nichole Pantoja MD [address] [place] [address] PCP - General Internal Medicine 02/03/21 documented as of this encounter
--- OUTSIDE RECORDS SUMMARY | 2025-09-02 21:13 | XMS_ITS ---
Author Organization [facility] Care Team Providers Care Carpet Jack Name Role Phone Yari Yen Unavailable Unavailable Susan Snell Unavailable Unavailable Tonya Dutton Unavailable Unavailable Grippin, Tanesha Unavailable Unavailable Allergies and adverse reactions Code CodeSystem Substance Reaction Severity StartDate Concern Status iodinate contrast Nausea (co de- 171936253, SNOMED CT) Moderate 05/12/2023 active 66939 RXNORM Itraconazole Moderate 05/12/2023 active 6922 RXNORM metroNIDAZOLE Unknown 05/12/2023 active 06902 RXNORM Sulfamethoxazole Unknown 05/12/2023 [place] 05195 RXNORM Trimethoprim Unknown 05/12/2023 active Care Team Name Role Address Phone Organization Dates Tonya Dutton PCP [address] [facility] [address], [place], [address], [facility] (Office): : [facility] 05/12/2023 - 06/14/2023 Yari Yen [address], [place], [address], [facility] (Office): : [phone] [facility] 05/12/2023 - 06/14/2023 [place], [address], [facility] (Office): : [facility] 05/12/2023 - 06/14/2023 Tanesha Alexis [address] [place], [address], [place] (Office): : [phone] [facility] 05/12/2023 - 06/14/2023 Medications Section Medication Name Status Code CodeSystem Dose Route Frequency Admin Type Sig Text Start Date End Date Indication Cyanocobala min Oral Tablet active 1000 mg Oral in the morning Routin e Give 1000 mg by mouth in the morni ng for vit B12 2022 - vit B12 Albuterol Sulfate Inhalation Aerosol Powder Breath Activated active 90 mcg Inhala tion as needed PRN 90 mcg inhal e orall y every 4 hours as neede d for wheez ing 2 puff inhal ation s for wheez ing 2022 - wheezing Nitroglycer in Sublingual Tablet Sublingual active 0.4 mg Sublin gual as needed PRN Give 0.4 mg subli ngual ly as neede d for angin a 2022 - angina Torsemide Oral Tablet 20 MG active 1 RXNORM 1 table t Oral every 48 hours Routin e Give 1 table t by mouth every 48 hours for diure tic 2022 - diuretic Fluticasone Propionate Nasal Suspension 50 MCG/ACT active 64292 07 RXNORM 2 spray Nasal in the morning Routin e 2 spray in both nostr ils in the morni ng for Stero ids 2022 - Steroids Gabapentin Oral Tablet active 300 mg Oral at bedtime Routin e Give 300 mg by mouth at bedti me for Neuro charles 2022 - Neuropathy Cetirizine HCl Oral Tablet 10 MG active 00039 78 RXNORM 1 table t Oral in the morning Routin e Give 1 table t by mouth in the morni ng for Aller gy 2022 - Allergy Mirtazapine Oral Tablet 45 MG active 64932 6 RXNORM 1 table t Oral in the evening Routin e Give 1 table t by mouth in the eveni ng for antid epres ellyn 2022 - antidepress ant Metoprolol Tartrate Oral Tablet 25 MG active 65348 4 RXNORM 12.5 mg Oral two times a day Routin e Give 12.5 mg by mouth two times a day for HTN 2022 - HTN Pravastatin Sodium Oral Tablet 80 MG active 76281 1 RXNORM 1 table t Oral in the evening Routin e Give 1 table t by mouth in the [facility] lipid s 2022 - lipids buPROPion HCl ER (SR) Oral Tablet Extended Release 12 Hour 150 MG active 90440 8 RXNORM 1 table t Oral in the evening Routin e Give 1 table t by mouth in the [facility] for anti- depre ssant 2022 - anti-depres ellyn Calcitriol Oral Capsule 0.25 MCG active 80636 7 RXNORM 1 capsu le Oral every 48 hours Routin e Give 1 capsu le by mouth every 48 hours for low calci um 2022 - low calcium Isosorbide Mononitrate ER Oral Tablet Extended Release 24 Hour 60 MG active 15897 8 RXNORM 1 table t Oral one time a day Routin e Give 1 table t by mouth one time a day relat ed to ACUTE RESPI RATOR Y FAILU RE WITH HYPOX IA (J96. 01) 2022 - - Glucosamine -Chondroiti n Oral Tablet active 500 mg Oral two times a day Routin e Give 500 mg by mouth two times a day for carti nik repai r 2022 - cartilage repair rOPINIRole HCl Oral Tablet 0.25 MG active 94809 5 RXNORM 1 table t Oral in the evening Routin e Give 1 table t by mouth in the [facility] restl essle g 2022 - restlessleg oxyCODONE HCl Oral Tablet 5 MG active 27832 21 RXNORM 1 table t Oral as needed PRN Give 1 table t by mouth every 4 hours as neede d for pain 2022 - pain Narcan Liquid 4 MG/0.1ML active 46845 64 RXNORM 0.1 ml in nostri l as needed PRN 0.1 ml in nostr il every 24 hours as neede d for opioi d depre ssion /susp ected opiod depre ssion CALL 911 TO ACTIV ATE EMERG ENCY RESPO NSE 2022 - opioid depression/ suspected opiod depression Oxybutynin Chloride ER Oral Tablet Extended Release 24 Hour active 15 mg Oral in the morning Routin e Give 15 mg by mouth in the morni ng for overa ctive bladd er 2022 - overactive bladder Lidocaine External Patch active n/a n/a Topica l in the morning Routin e Apply to right ribs and lower back topic ally in the morni ng for Pain 2022 - Pain MiraLax Oral Powder 17 GM/SCOOP active 08786 5 RXNORM 1 scoop Oral in the morning Routin e Give 1 scoop by mouth in the morni ng for Const ipati on 2022 - Constipatio n Colace Oral Capsule 100 MG active 36265 56 RXNORM 100 mg Oral in the morning Routin e Give 100 mg by mouth in the morni ng for Const ipati on 2022 - Constipatio n Melatonin Oral Tablet 10 MG active 20529 86 RXNORM 1 table t Oral as needed PRN Give 1 table t by mouth as neede d for Insom hubert At bedti me 2022 - Insomnia Aspirin Oral Capsule 81 MG active 36954 7 RXNORM 1 capsu le Oral one time a day Routin e Give 1 capsu le by mouth one time a day for cardi ac 2022 - cardiac Fleet Enema Enema 7-19 GM/118ML active 81613 5 RXNORM 1 dose Rectal as needed PRN Inser t 1 dose recta lly as neede d for Const ipati on (Step 3) as neede d if no bowel movem ent for 8 hours after bisac odyl suppo sitor y. 2022 - Constipatio n Milk of Magnesia Suspension 400 MG/5ML active 51080 7 RXNORM 30 ml Oral as needed PRN Give 30 ml by mouth as neede d for Const ipati on (Step 1) As neede d if no bowel movem ent for three days. (Do not use for Hemod ialys is patie nts). 2022 - Constipatio n Acetaminoph en Tablet 325 MG active 22184 2 RXNORM 2 table t Oral as needed PRN Give 2 table t by mouth every 6 hours as neede d for Pain Pain Total dosag e for aceta minop hen and medic ation s that conta in aceta minop hen shoul d not excee d 3 grams / 24 hours . AND Give 2 table t by mouth every 6 hours as neede d for Fever great er than 100.0 F Total dosag e for aceta minop hen and medic ation s that conta in aceta minop hen shoul d not excee d 3 grams / 24 hours . 2022 - Pain 96771 2 RXNORM 2 table t Oral as needed PRN Give 2 table t by mouth every 6 hours as neede d for Pain Pain Total dosag e for aceta minop hen and medic ation s that conta in aceta minop hen shoul d not excee d 3 grams / 24 hours . AND Give 2 table t by mouth every 6 hours as neede d for Fever great er than 100.0 F Total dosag e for aceta minop hen and medic ation s that conta in aceta minop hen shoul d not excee d 3 grams / 24 hours . 2022 - Fever greater than 100.0F Bisacodyl Suppository 10 MG active 9 RXNORM 1 suppo sitor y Rectal as needed PRN Inser t 1 suppo sitor y recta lly as neede d for If no bowel movem ent for 8 hours after Milk of Magne nesha 2022 - If no bowel movement for 8 hours after Milk of Magnesia ProAir HFA Inhalation Aerosol Solution 108 (90 Base) MCG/ACT active 82800 2 RXNORM 2 puff Inhala tion as needed PRN 2 puff inhal e orall y every 4 hours as neede d for SOB/w heeze 2022 - SOB/wheeze Coumadin Oral Tablet active 3 mg Oral one time a day Routin e Give 3 mg by mouth one time a day for couma din thera py 2022 - coumadin therapy Mental Status Section Date Assessment Total Score Description 06/14/2023 BIMS 15 cognitively int act CAM 0 No delirium ind icated PHQ-9 05 mild depression 05/16/2023 BIMS 15 cognitively int act CAM 0 No delirium ind icated PHQ-9 08 mild depression Insurance Providers Coverage Status Coverage Type Relationship to Subscriber Member Identifier Subscriber Identifier Group Identifier Payer Identifier and Other information 2023 Code: 1 Code System OID:[id number]. 3.221.5 Code System Name: Source of Payment Typology (PHDSC) Display: Medicare Translation : Code: KAYLA Code System: OID:[id number] 0.1.203313. 6.255.1336 Code System Name: Insurance Type Code ([id number]) Display Name: Medicare Part A Code: SELF Code System Name: HL7 RoleCode Code System OID:[id number] .[id number] Display Name: Self [id number] Root: [id number] Payer Name: Medicare Address: [place] [address] City: [place] State: [place] Country: [facility] Code: 81 Code System OID:[id number]. 3.221.5 Code System Name: Source of Payment Typology (PHDLA) Display: Self Pay Translation : Code: Tawanna Code System: OID:[id number] 0.1.093985. [email or web address] Code System Name: Insurance Type Code ([id number]) Display Name: Self-pay Problems Problem # Description Date of onset Resolved Date Code CodeSystem Concern Status 1 ACUTE RESPIRATORY FAILURE WITH HYPOXIA 05/12/[address] active 2 AGE-RELATED OSTEOPOROSIS WITHOUT CURRENT PATHOLOGICAL FRACTURE 05/12/[address] active 3 ESSENTIAL (PRIMARY) HYPERTENSION 05/12/[address] active 4 FRACTURE OF ONE RIB, LEFT SIDE, SEQUELA 05/12/2023 05/14/[address] completed 5 HYPERLIPIDEMIA, UNSPECIFIED 05/12/[address] active 6 MULTIPLE FRACTURES OF RIBS, RIGHT SIDE, SUBSEQUENT ENCOUNTER FOR FRACTURE WITH ROUTINE HEALING 05/12/[address] active 7 OTHER LACK OF COORDINATION 05/12/[address] active 8 UNSPECIFIED ATRIAL FIBRILLATION 05/12/[address] active 9 UNSPECIFIED LACK OF COORDINATION 05/12/[address] active Reason for Referral No Reasons for Referral Entered Social History Social History Observation Description Start Date End Date Code Code System Current Smoking Status Tobacco smoking consumption unknown 149689030 SNOMED CT Sex Assigned At Female 1940 30188-3 [facility] Gender Identity Sexual Orientation Vital Signs Code Code System Vitals Name Values and Units Timing Information 9279-1 [facility] Respiratory Rate Value=18.0 Units=/m in 06/14/2023 8462-4 [facility] Blood Pressure-Diastolic Value=76 Un its=mmHg 06/14/2023 8480-6 [facility] Blood Pressure-Systolic Zfbmv=723 Un its=mmHg 06/14/2023 8310-5 [facility] Body Temperature Value=97.3 Units= F 06/14/2023 8867-4 [facility] Heart rate Utzem=977.0 Units=/min 06/14/2023 06355-1 [facility] O2 % BldC Oximetry Value=94.0 Units= % 06/14/2023 90581-1 [facility] Pain Level Value=0.0 06/14/2023 17973-9 [facility] Weight Zypmq=055.0 Units=Lbs
--- OUTSIDE RECORDS SUMMARY | 2025-09-02 21:13 | XMS_ITS | Clinical Summary ---
Author Organization [facility] Prior to 02/14/25 Address [address] [place] [address] Care Team Providers Care Vice President Of Talent Acquisition Name Role Phone Nichloe Pantoja MD Primary Care Provider [phone] Allergies Active Allergy Reactions Criticality Noted Date Comments Ciprofloxacin 10/03/2020 Petechial rash on shins after cipro/flagyl Iodinated Contrast Media Other (See Comments) 1 10/14/2004 Itraconazole Other (See Comments) 08/14/2005 Metronidazole 10/18/2020 Sulfamethoxazole-Trimeth oprim Other (See Comments) 08/14/2005 Medications Medication Sig Dispensed Refills Start Date End Date Status metoprolol succinate (TOPROL-XL) 24 hr tablet 50 mg Take by mouth daily. 0 Active oxybutynin (DITROPAN XL) 15 MG 24 hr tablet Take 15 mg by mouth daily. 0 Active cetirizine (ZyrTEC) 10 MG tablet Take 10 mg by mouth daily. 0 Active pravastatin (PRAVACHOL) tablet 80 mg Take 80 mg by mouth daily. 0 Active rOPINIRole (REQUIP) 0.25 MG tablet Take 0.25 mg by mouth 3 (three) times a day. 0 Active warfarin (COUMADIN) 5 MG tablet Take 5 mg by mouth daily. 0 Active Albuterol Sulfate 108 (90 Base) MCG/ACT AEPB Inhale into the lungs continuous prn. 0 Active fluticasone (FLONASE) 50 MCG/ACT nasal spray spray/apply 1 spray in each nostril daily. 0 Active nitroglycerin (NITROSTAT) 0.[address] 0.4 mg under the tongue every 5 (five) minutes as needed for chest pain. 0 Active Melatonin 10 MG CAPS Take by mouth. 0 Active GLUCOSAMINE-CHONDROITI N PO Take by mouth. 0 Active CALCIUM CARBONATE-VITAMIN D PO Take by mouth. 0 Active vitamin B-12 (CYANOCOBALAMIN) tablet 1000 mcg Take 1,000 mcg by mouth daily. 0 Active aspirin 81 MG tablet Take 81 mg by mouth daily. 0 Active Multiple Vitamins-Minerals (MULTIVITAMIN PO) Take by mouth. 0 Act trinity mirtazapine (REMERON) 45 MG tablet Take 45 mg by mouth every night at bedtime. 0 Active Bioflavonoids 1000 MG TABS Take by mouth. 0 Active tiZANidine (ZANAFLEX) 4 MG tablet Take 4 mg by mouth every 6 (six) hours as needed. 0 Active oxyCODONE (ROXICODONE) 5 MG immediate release tablet Take 5 mg by mouth every 4 (four) hours as needed for pain. 0 Active fexofenadine (RANDI ODT) 30 MG disintegrating tablet Take 30 mg by mouth daily. 0 Active furosemide (LASIX) 20 MG tablet Take 20 mg by mouth 2 (two) times a day. 0 Active HYDROcodone-acetaminop hen (Alma) 7.5-325 MG per tablet Take 1 tablet by mouth every 6 (six) hours as needed for pain. 0 Active lisinopril (PRINIVIL,ZESTRIL) tablet 5 mg Take 5 mg by mouth daily. 0 Active loratadine (CLARITIN) 10 MG tablet Take 10 mg by mouth daily. 0 Active QUEtiapine (SEROquel) 100 MG tablet Take 100 mg by mouth every night at bedtime. 0 Active sertraline (ZOLOFT) 100 MG tablet Take 100 mg by mouth daily. 0 Active amiodarone (PACERONE) 200 MG tablet Take 400 mg by mouth 2 (two) times a day. 0 Active Active Problems Problem Noted Date Diagnosed Date Sacroiliitis, not elsewhere classified 1 Family History Medical History Relation Name Comments Leukemia Mother Cervical cancer Sister Lung cancer Son Relation Name Status Comments Mother Sister Son renal cancer Social History Tobacco Use Types Packs/Day Years Used Date Smoking Tobacco: Former Smokeless Tobacco: Never Comments:quit 60 years Alcohol Use Standard Drinks/Week Comments Yes 0 (1 standard drink = 0.6 oz pur e alcohol) ocassionally Sex and Gender Information Value Date Recorded Sex Assigned at Female 06/20/2021 10:49 AM EDT Gender Identity Not on file Sexual Orientation Not on file Job Start Date Occupation Industry Not on file Not on file Not on file Last Filed Vital Signs Vital Sign Reading Time Taken Comments Blood Pressure 125/88 08/25/2021 2:27 PM EST Pulse 105 08/25/2021 2:27 PM EST Temperature 36.7 C (98 F) 08/25/2021 2:27 PM EST Respiratory Rate 18 06/21/2021 10:39 AM EDT Oxygen Saturation 95% 08/25/2021 2:27 PM EST Inhaled Oxygen Concentration - - Weight 97.1 kg (214 lb) 08/25/2021 2:27 PM EST Height 175.3 cm (5' 9 ) 08/25/2021 2:27 PM EST Body Mass Index 31.6 08/25/2021 2:27 PM EST Plan of Treatment Health Maintenance Due Date Last Done Comments Depression Screening 1954 BMI Counseling 02/18/1960 Preventative Health Evaluation 02/18/1960 Fall Risk Assessment 2007 Osteoporosis Screening (DEXA Scan) 2007 RSV Adult > 60+ Yrs or (1 - 1-dose 75+ series) 2017 Pneumococcal Vaccine (2 of 2 - PPSV23 or PCV20) 06/14/2017 06/14/2016 Shingrix-Zoster Vaccine (2 of 2) 03/21/2021 01/24/2021 DTap / Tdap / Td (2 - Td or Tdap) 02/28/2023 02/28/2013 COVID-19 Vaccine ( season) 2025 02/06/2022, 09/08/2021, 05/18/2021, Additional history exists Influenza Vaccine (#1) 2025 2, 06/22/2021, 07/02/2020, Additional history exists Hepatitis B Vaccines Aged Out No long er eligible based on patient's age to complete this topic RSV Ped < 20 months Aged Out No longe r eligible based on patient's age to complete this topic Care Teams Vice President Of Talent Acquisition Relationship Specialty Start Date End Date Nichole Pantoja MD PCP - General Internal Medicine 08/02/21
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
--- OUTSIDE RECORDS SUMMARY | 2025-09-02 21:14 | XMS_ITS | Encounter Summary ---
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 Agree with PCP/urgent care FU and to ER with progressive symptoms * Brooke Watson RN - 09/02/2025 3:38 PM EST Pt. Fell 2 days ago , she was reaching for her coat and left knee gave out on me I always have trouble with that knee 53 years ago fell down two steps landed on back . She sts I slid over and pushed my self up Pt. Called coumadin clinic advised to apply ice . Now she is having a hard time getting up from toilet . She states her back is fine , the knee is bothering and painful , no redness , no heat but does feel warm , no bruising . No head injury , no LOC . There is a little swelling . Pt.Is able to bear weight when she is finally up .. No cp no sob no weakness. Apt, made for today in urgent care and advised for worsening symptoms or unable to bear weight may need to go to the ER. Pt.agrees * Nichole Pantoja MD - 09/02/2025 3:03 PM EST May be a good idea for patient to be seen in urgent care, patient is high risk of fall. I do not want to wait into tomorrow * Trang Washington LPN - 09/02/2025 10:52 AM EST Pt. [facility] asking if we could message triage. She fell onto her left knee yesterday and is having a lot of pain. States she was reaching for her jacket and her knee just bucled. States no bruising or breaks in the skin but believes there is some swelling. She is interested in getting an x ray. I advised her I would forward to triage.Trang Washington LPN documented in this encounter Plan of Treatment Upcoming Encounters Date Type Department Care Team (Late st Contact Info) Description 09/03/2025 2:30 PM EST Clinical Support [facility] [address] [phone] 09/22/2025 1:50 PM EST Office Visit Pulmonology - [place] [address] [facility] [address] [place] [id number] Merle Holden, DOMINIC [address] [place] [address] 01/13/2026 2:15 PM EDT Office Visit Nephrology [address] [phone] Errol Diaz MD [address] [phone] documented as of this encounter Visit Diagnoses Not on filedocumented in this encounter Care Teams Sewing Machine Operator Plastic Zipper Relationship Specialty Start Date End Date Nichole Pantoja MD [address] [place] [address] PCP - General Internal Medicine 02/03/21 documented as of this encounter
--- NOTE | 2025-09-02 22:11 | PC.NURSE ---
HERIBERTO Boyd to bedside speaking with the patient. Patient agreeable to discharge, but requesting home PT services. OJustin to consult with case management regarding this. Care ongoing by this RN.
[2025-09-02 22:23] VITALS: BP 188/89; PULSE 74; RESP 18; TEMP 36.6; O2SAT 93
--- NOTE | 2025-09-02 23:07 | PC.NURSE ---
Case management (Karmen Menon) to bedside, spoke with patient. Patient requesting discharge with services to be arranged by CM tomorrow. CM to call patient tomorrow, referral to be placed. Patient requesting christina wrap for knee. Plan to discharge home with with services.
--- NOTE | 2025-09-02 23:30 | PC.NURSE ---
assumed care of patient, awaiting discharge instructions
--- NOTE | 2025-09-02 23:31 | MHC.CM.ED ---
Addendum entered by Martha Alvarez 09/02/25 23:35: F2F uploaded Original Note: CM met with patient and her to discuss discharge planning. Pt refuses STR. States had a bad experience when she went to rehab last time and became more debilitated and weak, as she contracted pneumonia and COVID. PT is not present at this time. Pt wants to discharge to home. Agreeable to home PT. Pt is homebound d/t knee pain. Patient lives with her . Has a walker and a rollator. Has not services. Very independent. HCP on file. PCP Dr. Nichole Pantoja. Referrals made for home PT/SN with 4 agencies. Will call patient tomorrow with choices. Patient and agreeable to plan of care.
[2025-09-02 23:59] VITALS: BP 188/89; PULSE 74; RESP 18; TEMP 36.6; O2SAT 93
== END 2025-09-02 23:59 | disposition home or self-care (01) ==
PROVIDERS: Registered Nurse Emergency; Emergency Provider Student in an Organized Health Care Education/Training Program; PCP Internal Medicine
DX: M25.562 Pain in left knee (principal); S09.90XA Unspecified injury of head, initial encounter; W19.XXXA Unspecified fall, initial encounter; Y93.9 Activity, unspecified; Y92.9 Unspecified place or not applicable; R20.0 Anesthesia of skin; I10 Essential (primary) hypertension; E78.00 Pure hypercholesterolemia, unspecified; Z86.79 Personal history of other diseases of the circulatory system; Z79.01 Long term (current) use of anticoagulants
CPT/HCPCS: 36415; 70450; 72125; 73564; 80053; 85025; 85610; 85730; 99284